=== PATIENT | male | born 1985 | race American Indian/Alaskan Native ===

== ENCOUNTER 2018-04-27 19:53 | Inpatient (IN) | payer OTHER ==
[2018-04-27] MEDS ORDERED: Sodium Chloride 0.9% 1,000 ML IV ONE (21:50)
[2018-04-27] MEDS ORDERED: Piperacillin/Tazobact 3.375 GM in Sodium Chloride 0.9% 100 ML IVPB STA (21:56)
--- NOTE | 2018-04-27 22:05 | ED PDOC ---
HPI: General Adult Time Seen by Provider: 04/27/18 21:39 Chief Complaint (Nursing): Male Genitourinary Chief Complaint (Provider): Scrotal Pain/Abscess History Per: Patient History/Exam Limitations: no limitations Onset/Duration Of Symptoms: Days (x4-5) Current Symptoms Are (Timing): Still Present Additional Complaint(s): Mikael Merritt is a 32 year old male with no past medical history who is presenting to the ED for evaluation of a scrotal abscess worsening for 4-5 days. Patient states that he has a history of similar symptoms which have required surgical debridement in the past, but this was previously managed in [place]. Patient denies taking any medications prior to arrival. He states that it has started draining today and noted a fever of 102 at home. He denies any abdominal pain, nausea, vomiting, dysuria, or hematuria. PMD: SREE Past Medical History Reviewed: Historical Data, Nursing Documentation, Vital Signs Vital Signs: Last Vital Signs Temp 98.9 F 04/27/18 20:50 Pulse 109 H 04/27/18 20:50 Resp 18 04/27/18 20:50 BP 121/86 04/27/18 20:50 Pulse Ox 96 04/27/18 20:50 - Medical History PMH: No Chronic Diseases - Surgical History Other surgeries: orthopedic; debridement of recurrent abscesses - Family History Family History: States: Unknown Family Hx - Social History Current smoker - smoking cessation education provided: No Alcohol: None Drugs: Denies - Home Medications Home Medications: Ambulatory Orders Medication Instructions Recorded Amoxicillin/Clavulanate [Augmentin 1 tab PO BID 10 Days #20 tab 04/29/18 875 MG-125 MG] Chlorhexidine Gluconate 4% 5 ml TOP BID #1 bottle 04/29/18 [Hibiclens 4%] RX: Ibuprofen [Motrin Tab] 600 mg PO QID #30 tab 04/29/18 Tramadol HCl [Ultram] 25 mg PO Q4 PRN #10 tablet 04/29/18 - Allergies Allergies/Adverse Reactions: Allergies Allergy/AdvReac Type Severity Reaction Status Date / Time shellfish derived Allergy ITCHING Verified 04/27/18 21:48 Review of Systems ROS Statement: Except As Marked, All Systems Reviewed And Found Negative Constitutional: Positive for: Fever Gastrointestinal: Negative for: Nausea, Vomiting, Abdominal Pain Genitourinary Male: Positive for: Other (scrotal abscess). Negative for: Dysuria Physical Exam - Reviewed Nursing Documentation Reviewed: Yes Vital Signs Reviewed: Yes - Physical Exam Comments: GENERAL APPEARANCE: Patient is awake, alert, oriented x 3, in no acute distress. SKIN: Warm, dry; (-) cyanosis ENMT: Mucous membranes moist. Airway patent: (-) stridor. NECK: Supple, FROM HEART AND CARDIOVASCULAR: (-) irregularity CHEST AND RESPIRATORY: (-) rales, (-) rhonchi, (-) wheezes; breath sounds equal. Respirations even and nonlabored. ABDOMEN: Soft, (-) distention, (-) tenderness, (-) guarding. GENITOURINARY: Iesha DALY chaperoned: multiple areas of induration and edema to inferior scrotum, inferior aspects of gluteus cheeks (+) diffuse tenderness to perineum and scrotum, bilateral scrotal tenderness with active pus drainage from inner buttock/right scrotum with foul smelling odor NEURO AND PSYCH: Mental status as above. Gait: steady. Speech: clear. (-) facial asymmetry - Laboratory Results Result Diagrams: 04/29/18 05:40 04/27/18 23:13 - ECG O2 Sat by Pulse Oximetry: 96 (RA) Pulse Ox Interpretation: Normal Medical Decision Making Medical Decision Making: Time: 21:51 Impression: recurrent perineal/scrotal abscess Plan: --VBG --CT Pelvis --CMP --CBC --Coags --IV Fluids --Toradol 30 mg IVP --Tylenol 650 mg PO --Vancomyacin 25 ml IVPB --Zosyn 100 ml IVPB --Blood Culture --Wound Culture --Urinalysis --Ultrasound Testes 2325 Patient returned from U/S without incident. Repeat HR: 75 Coag profile: unremarkable 2350 U/S reviewed, [facility]ad report follows EXAM: US Scrotum. CLINICAL HISTORY: Rt scrotal abscess TECHNIQUE: Real-time ultrasound of the scrotum with color Doppler and image documentation. COMPARISON: None provided. FINDINGS: RIGHT TESTICLE: The right testicle demonstrates normal Doppler waveforms. Right testicle measures 4.6 x 1.8 x 3.1 cm. LEFT TESTICLE: Left testicle measures 4.5 x 2.1 x 1.6 cm. Left testicle demonstrates normal Doppler waveforms. EPIDIDYMIDES: Right epididymal head measures 1.1 cm in greatest dimension. There is a right epididymal head cyst measuring 0.6 cm. Left epididymal head measures 0.8 cm in greatest dimension. SCROTUM: At the right lateral scrotum, at the area of palpable concern, there is a hypoechoic region with peripheral and some slight central hypervascularity. This measures 3.8 x 0.8 x 1.5 cm This is compatible with abscess or phlegmon. Less likely possibility includes hypervascular mass. MISCELLANEOUS: There is normal vascularity of both testes. Both testes demonstrate homogeneous echogenicity. IMPRESSION: 1. At the right lateral scrotum, at the area of palpable concern, there is a hypoechoic region with peripheral and some slight central hypervascularity. This measures 3.8 x 0.8 x 1.5 cm This is compatible with abscess or phlegmon. Less likely possibility includes hypervascular mass. Electronically signed on Apr 27, 2018 11:31:26 PM EST by: Amos Leo M.D., MBA Certified By [facility] [employer] [facility] Trained MRI and CT Specialist Labs reviewed. CBC with no leukocytosis. CMP grossly unremarkable. 0000 Case endorsed to Yung Amador PA-C pending CT evaluation and further disposition. Scribe Attestation: Documented by, Paty Mason acting as a scribe for Kimmy Coello PA-C. Provider Scribe Attestation: All medical record entries made by the Scribe were at my direction and personally dictated by me. I have reviewed the chart and agree that the record accurately reflects my personal performance of the history, physical exam, medical decision making, and the department course for this patient. I have also personally directed, reviewed, and agree with the discharge instructions and disposition. Disposition - Clinical Impression Clinical Impression: Scrotal abscess - Patient ED Disposition Is Patient to be Admitted: Transfer of Care (Case endorsed to Yung Amador PA-C pending CT evaluation and further disposition.) - Disposition Disposition: Transfer of Care (Case endorsed to Yung Amador PA-C pending CT evaluation and further disposition.) Disposition Time: 00:00 Condition: FAIR - POA Present On Arrival: None Results - Vital Signs Recent Vital Signs: Last Vital Signs Temp 99.1 F 04/27/18 23:29 Pulse 75 04/27/18 23:29 Resp 18 04/27/18 20:50 BP 111/53 L 04/27/18 23:29 Pulse Ox 98 04/27/18 23:29 - Labs Result Diagrams: 04/29/18 05:40 04/27/18 23:13 Labs: Laboratory Results - last 24 hr 04/27/18 04/27/18 04/27/18 23:13 23:13 23:13 WBC 10.4 RBC 4.56 Hgb 12.8 Hct 37.9 MCV 83.2 MCH 28.1 MCHC 33.8 RDW 15.4 H Plt Count 298 MPV 9.2 Neut % (Auto) 67.4 Lymph % (Auto) 21.7 [place] % (Auto) 6.9 Eos % (Auto) 3.2 Baso % (Auto) 0.8 Neut # (Auto) 7.0 Lymph # (Auto) 2.3 [place] # (Auto) 0.7 Eos # (Auto) 0.3 Baso # (Auto) 0.1 PT 12.4 INR 1.1 APTT 34.3 pO2 VBG pH VBG pCO2 VBG HCO3 VBG Total CO2 VBG O2 Sat (Calc) VBG Base Excess VBG Potassium Glucose Lactate FiO2 Sodium 139 Potassium 4.3 Chloride 102 Carbon Dioxide 23 Anion Gap 18 BUN 14 Creatinine 1.0 Est GFR ( Amer) > 60 Est GFR (Non-Af Amer) > 60 Random Glucose 109 Calcium 9.6 Total Bilirubin 0.2 AST 32 ALT 44 Alkaline Phosphatase 74 Total Protein 8.5 H Albumin 4.2 Globulin 4.3 H Albumin/Globulin Ratio 1.0 Venous Blood Potassium 04/27/18 23:32 WBC RBC Hgb Hct MCV MCH MCHC RDW Plt Count MPV Neut % (Auto) Lymph % (Auto) [place] % (Auto) Eos % (Auto) Baso % (Auto) Neut # (Auto) Lymph # (Auto) [place] # (Auto) Eos # (Auto) Baso # (Auto) PT INR APTT pO2 48 VBG pH 7.45 H VBG pCO2 39 L VBG HCO3 26.9 VBG Total CO2 28.3 H VBG O2 Sat (Calc) 89.1 H VBG Base Excess 3.0 H VBG Potassium 4.3 Glucose 100 Lactate 1.0 FiO2 21.0 Sodium 138.0 Potassium Chloride 108.0 H Carbon Dioxide Anion Gap BUN Creatinine Est GFR ( Amer) Est GFR (Non-Af Amer) Random Glucose Calcium Total Bilirubin AST ALT Alkaline Phosphatase Total Protein Albumin Globulin Albumin/Globulin Ratio Venous Blood Potassium 4.3
[2018-04-27] MEDS ORDERED: Vancomycin 1 g Inj ONE (22:55)
[2018-04-27] MEDS ORDERED: Piperacillin/Tazobact 3.375 gm Inj IVPB ONE (22:55)
[2018-04-27 23:20] LABS: BASO # 0.1 K/uL (0.0-0.2); BASO % 0.8 % (0.0-2.0); EOS # 0.3 K/uL (0.0-0.7); EOS % 3.2 % (0.0-4.0); HEMOGLOBIN 12.8 g/dL (12.0-18.0); LYMPH # 2.3 K/uL (1.0-4.3); LYMPH % 21.7 % (20.0-40.0); MEAN CELL VOLUME 83.2 fl (80.0-94.0); MEAN CORPUSCULAR HEMOGLOBIN 28.1 pg (27.0-31.0); MEAN CORPUSCULAR HGB CONC 33.8 g/dL (33.0-37.0); MEAN PLATELET VOLUME 9.2 fl (7.2-11.7); MONO # 0.7 K/uL (0.0-0.8); MONO % 6.9 % (0.0-10.0); NEUT % 67.4 % (50.0-75.0); RBC 4.56 Mil/uL (4.40-5.90); RED CELL DISTRIBUTION WIDTH 15.4 % (11.5-14.5); WHITE BLOOD COUNT 10.4 K/uL (4.8-10.8)
[2018-04-27 23:21] LABS: INR 1.1; PROTHROMBIN TIME 12.4 Seconds (9.8-13.1)
[2018-04-27 23:24] LABS: PARTIAL THROMBOPLASTIN TIME 34.3 Seconds (25.6-37.1)
[2018-04-27 23:29] LABS: ALBUMIN 4.2 g/dL (3.5-5.0); ALT/SGPT 44 U/L (21-72); AST/SGOT 32 U/L (17-59); BLOOD UREA NITROGEN 14 mg/dl (9-20); CALCIUM 9.6 mg/dL (8.4-10.2); GFR NON-AFRICAN AMERICAN > 60
[2018-04-27 23:37] LABS: VENOUS BLOOD GAS PCO2 39 mmHg (40-60); VENOUS BLOOD GAS PO2 48 mm/Hg (30-55); VENOUS BLOOD PH 7.45 (7.32-7.43)
[2018-04-27] MEDS ORDERED: Iohexol 300 100 ML IJ ONE (23:56)
[2018-04-27] MEDS ORDERED: Sodium Chloride 0.9% 50 ML IV ONE (23:57)
--- NOTE | 2018-04-28 00:24 | ED PDOC ---
- Laboratory Results Result Diagrams: 04/27/18 23:13 04/27/18 23:13 Lab Results: pO2 48 mm/Hg (30-55) 04/27/18 23:32 VBG pH 7.45 (7.32-7.43) H 04/27/18 23:32 VBG pCO2 39 mmHg (40-60) L 04/27/18 23:32 VBG HCO3 26.9 mmol/L 04/27/18 23:32 VBG Total CO2 28.3 mmol/L (22-28) H 04/27/18 23:32 VBG O2 Sat (Calc) 89.1 % (40-65) H 04/27/18 23:32 VBG Base Excess 3.0 mmol/L (0.0-2.0) H 04/27/18 23:32 VBG Potassium 4.3 mmol/L (3.6-5.2) 04/27/18 23:32 Sodium 138.0 mmol/L (132-148) 04/27/18 23:32 Chloride 108.0 mmol/L (98-107) H 04/27/18 23:32 Glucose 100 mg/dL (75-110) 04/27/18 23:32 Lactate 1.0 mmol/L (0.7-2.1) 04/27/18 23:32 FiO2 21.0 % 04/27/18 23:32 PT 12.4 Seconds (9.8-13.1) 04/27/18 23:13 INR 1.1 04/27/18 23:13 APTT 34.3 Seconds (25.6-37.1) 04/27/18 23:13 Total Bilirubin 0.2 mg/dl (0.2-1.3) 04/27/18 23:13 AST 32 U/L (17-59) 04/27/18 23:13 ALT 44 U/L (21-72) 04/27/18 23:13 Alkaline Phosphatase 74 U/L (38-126) 04/27/18 23:13 Total Protein 8.5 G/DL (6.3-8.2) H 04/27/18 23:13 Albumin 4.2 g/dL (3.5-5.0) 04/27/18 23:13 Globulin 4.3 gm/dL (2.2-3.9) H 04/27/18 23:13 Albumin/Globulin Ratio 1.0 (1.0-2.1) 04/27/18 23:13 - ECG O2 Sat by Pulse Oximetry: 96 (RA) - Progress ED Course And Treament: Case endorsed to repairer typewriter from [employer] pending CT EXAM: CT Pelvis and Hip, laterality, with IV contrast. CLINICAL HISTORY: Scrotal /perianal abscess TECHNIQUE: Axial computed tomography images of the pelvis and laterality hip with intravenous contrast. 508.75 mGy-cm IV CONTRAST: With COMPARISON: SD\US\NV - TESTES DUPLEX COMPLETE - 04/27/2018 10:19 PM EST FINDINGS: HIP JOINTS: Focused images acquired of the laterality hip. No dislocation. The joint spaces are normal. BONES: No acute fracture or aggressive appearing osseous lesion. No suspicious focal osseous lesions. SOFT TISSUES: The pelvic viscera are unremarkable. No fluid collection, hematoma or mass. No radiopaque foreign body or soft tissue gas. MISCELLANEOUS: Superficial localized fluid collection in the region of clinical concern measuring approximately 3 x 2 cm, compatible with an abscess. IMPRESSION: Superficial localized fluid collection in the region of clinical concern measuring approximately 3 x 2 cm, compatible with an abscess Case discussed with Dr. Agrawal, Urology on-call; recommends sitz baths of NS/peroxide and admit under hospitalist Case discussed with Dr. Qiu, Hospitalist on-call, for admission Disposition - Clinical Impression Clinical Impression: Scrotal abscess - POA Present On Arrival: None - Disposition Disposition: Admitted as In-Patient Disposition Time: 02:00 Condition: FAIR
[2018-04-28] MEDS ORDERED: Morphine 4 MG/ML VIAL IV ONE (01:00)
[2018-04-28 01:13] LABS: URINE BILIRUBIN NEGATIVE (NEGATIVE); URINE BLOOD NEGATIVE (NEGATIVE); URINE CLARITY CLEAR (Clear); URINE COLOR YELLOW (YELLOW); URINE GLUCOSE (UA) NEG (NEGATIVE); URINE LEUKOCYTE ESTERASE NEG Leu/uL (Negative); URINE PROTEIN NEGATIVE (NEGATIVE); URINE UROBILINOGEN 0.2-1.0 mg/dL (0.2-1.0)
[2018-04-28] MEDS ORDERED: Morphine 4 MG/ML VIAL IVP ONE ×2 (02:01→21:29)
[2018-04-28] MEDS ORDERED: Morphine 4 MG/ML VIAL ONE (02:11)
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
[2018-04-28] MEDS ORDERED: Lactated Ringer's 1,000 ML IV SCH (02:15)
[2018-04-28] MEDS: Morphine 4 MG/ML VIAL IVP PRN ×2 (04:20→08:45)
[2018-04-28] MEDS: Piperacillin/Tazobact 3.375 GM in Sodium Chloride 0.9% 100 ML IVPB SCH ×4 (04:25→22:06)
--- NOTE | 2018-04-28 10:23 | CT ---
Date of service: 04/27/2018 PROCEDURE: CT Pelvis with contrast HISTORY: scrotal/perianal abscess COMPARISON: None available. TECHNIQUE: Contiguous axial images of the pelvis with contrast. Coronal and sagittal reformats generated. Helical CT of the pelvis was performed from the iliac crest through the symphysis pubis following dynamic intravenous contrast administration. Reformatted dataset have been provided multiple projections. Contrast dose: Omnipaque 300, 90 cc Radiation dose: Total exam DLP = 508.75 mGy-cm. This CT exam was performed using one or more of the following dose reduction techniques: Automated exposure control, adjustment of the mA and/or kV according to patient size, and/or use of iterative reconstruction technique. FINDINGS: Reactive changes are identified in subcutaneous fat at the medial buttocks at both sides of the gluteal fold which may extend to the level of the perianal space, particularly at the left side. Medial left buttocks a buttocks is more affected than the left buttocks superficially but no definite fluid collection is appreciated to define a specific abscess at either side. Overall pattern reflects limited phlegmon. Reactive changes approach the inferior left gluteus musculature. BLADDER: Unremarkable. No mass. REPRODUCTIVE ORGANS: Unremarkable. VISUALIZED BOWEL: Moderate amount retained fecal material scattered at the distal rectosigmoid. PERITONEUM: Unremarkable, as visualized. No free fluid. No free air. LYMPH NODES: Unremarkable. No enlarged lymph nodes. VASCULATURE: No aortic atherosclerotic calcification or mural plaque present. BONES: No fracture or focal lesion. OTHER FINDINGS: There is a small umbilical hernia containing a short segment of bowel without incarceration. IMPRESSION: Bilateral medial buttocks reactive cellulitis changes are identified which are rather superficial and primarily immediately deep to the dermis with no definitive abscess at this time. Cellulitis pattern approaching the left perianal space based on axial images. No definitive abscess appreciated throughout. Distortion with preliminary report by [employer] rad generated 04/28/2018, 1:19 a.m.. No abscess appreciated at this time which is part of the preliminary report. Findings discussed with Nurse Bessy Dias as well as Dr. Agrawal, the admitting physician with written down and read back verification 04/28/2018 10:05 a.m..
[2018-04-28] MEDS ORDERED: Lidocaine 2% Inj (20ml) ONE (12:50)
[2018-04-28] MEDS ORDERED: Bupivacaine 0.5% Inj(30mL) ONE (12:50)
--- NOTE | 2018-04-28 13:12 | US ---
Date of service: 04/27/2018 HISTORY: scrotal abscess/swelling TECHNIQUE: Realtime sonography through the scrotum with color and doppler flow. COMPARISON: 2018. CT pelvis. FINDINGS: RIGHT TESTICLE: Measures 1.8 x 3.1 x 4.6 cm. Normal echotexture and flow. RIGHT EPIDIDYMIS: Epididymal head measures 1.0 x 1.1 cm. Grossly unremarkable appearance with normal flow. Simple cyst 6 x 7 mm. LEFT TESTICLE: Measures 2.1 x 3.1 x 4.5 cm. Normal echotexture and flow. LEFT EPIDIDYMIS: Epididymal head measures 0.6 x 0.8 cm. Grossly unremarkable appearance with normal flow. HYDROCELE: None. VARICOCELE: None. OTHER FINDINGS: Scrotal edema on the right side. Interposed between the right testicle and skin is a solid hypodense area measuring 0.8 x 1.5 x 3.8 cm. The area displays increased vascularity peripherally. This is likely infectious/inflammatory-phlegmonous process. IMPRESSION: Unilateral, right scrotal edema. Hypervascular solid mass/process subjacent to the skin, superficial to the right testicle compatible with inflammatory/infectious process without discrete cavity or fluid component. Although less likely neoplasm should be considered. Accordingly follow-up to resolution recommended. Concordant findings (preliminary report) provided by [employer].
[2018-04-28] MEDS ORDERED: Lactated Ringer's 1,000 ML IV ONE (15:15)
[2018-04-28] MEDS ORDERED: Midazolam 2 MG/2 ML VIAL ONE (15:17)
[2018-04-28] MEDS ORDERED: Propofol 10 mg/ml Inj (20 ML) ONE (15:17)
[2018-04-28] MEDS: HYDROmorphone 0.5 mg/0.5 ml ISec IVP PRN ×3 (16:09→16:55)
[2018-04-28] MEDS ORDERED: HYDROmorphone 0.5 mg/0.5 ml ISec ONE (16:10)
[2018-04-28] MEDS ORDERED: Dexamethasone 4 mg/1 ml IVP PRN (16:11)
[2018-04-28 17:32] VITALS: RESP 20
[2018-04-28 23:43] LABS: BARBITURATES, UR NEGATIVE (NEGATIVE); BENZODIAZEPINES, UR POSITIVE (NEGATIVE); OPIATES, UR POSITIVE (NEGATIVE); PHENCYCLIDINE, UR NEGATIVE (NEGATIVE)
[2018-04-29] MEDS: Piperacillin/Tazobact 3.375 GM in Sodium Chloride 0.9% 100 ML IVPB SCH ×2 (04:04→09:01)
[2018-04-29 06:38] LABS: BASO # 0.1 K/uL (0.0-0.2); BASO % 0.7 % (0.0-2.0); EOS # 0.3 K/uL (0.0-0.7); EOS % 3.3 % (0.0-4.0); LYMPH # 1.7 K/uL (1.0-4.3); LYMPH % 17.9 % (20.0-40.0); MEAN CELL VOLUME 83.7 fl (80.0-94.0); MEAN CORPUSCULAR HEMOGLOBIN 28.1 pg (27.0-31.0); MEAN CORPUSCULAR HGB CONC 33.6 g/dL (33.0-37.0); MEAN PLATELET VOLUME 9.6 fl (7.2-11.7); MONO # 0.8 K/uL (0.0-0.8); MONO % 8.6 % (0.0-10.0); NEUT # 6.7 K/uL (1.8-7.0); NEUT % 69.5 % (50.0-75.0); RBC 3.93 Mil/uL (4.40-5.90); RED CELL DISTRIBUTION WIDTH 15.4 % (11.5-14.5); WHITE BLOOD COUNT 9.7 K/uL (4.8-10.8)
[2018-04-29] MEDS ORDERED: Morphine 4 MG/ML VIAL IVP ONE (07:49)
[2018-04-29 08:32] VITALS: BP 119/76; PULSE 63; TEMP 98.1; O2SAT 96
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
--- NOTE | 2018-04-30 06:36 | OP ---
PROCEDURE DATE: 04/28/2018 SURGEON: Santana Agrawal MD ANESTHESIOLOGIST: Eren Ramirez MD ANESTHESIA: General LMA PROCEDURE: I&D Scrotal Abscess INDICATION: The patient was brought to the ER with apparent abscess of the scrotum approaching the perineum. DESCRIPTION OF PROCEDURE: The patient was brought down to the OR, prepped and draped in the usual manner after general anesthesia given. The area suspicious for the abscess was then opened with a cold knife. Approximately 5 to 10 mL of purulent pus was then removed. The area was irrigated using peroxide and water. After this was accomplished, an iodoform gauze then placed into the open area. The abscess was incised. Scrotal support was then placed over the scrotum with 4x4s. The patient . The patient left the OR in good condition and will be followed as necessary. Santana Agrawal MD MTDD
== END 2018-04-29 12:16 | disposition home or self-care (01) | DRG 350 ==
LOC: H.ER 19:53 → H.ERHOLD 04-28 02:00 → H.MEDSURG1 04-28 03:43
PROVIDERS: ADMIT Internal Medicine; ATTEND Internal Medicine
PROC: 0H9AXZZ Drainage of Inguinal Skin, External Approach (ICD-10-PCS; principal; 2018-04-28 13:00)
DX: N49.2 Inflammatory disorders of scrotum (principal); W22.8XXA Striking against or struck by other objects, initial encounter; Z91.013 Allergy to seafood; S69.92XA Unspecified injury of left wrist, hand and finger(s), initial encounter

== ENCOUNTER 2018-06-01 19:23 | Observation (INO) | payer OTHER ==
--- NOTE | 2018-06-01 21:18 | ED PDOC ---
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 Patient also reports pain and swelling to right testicle, which he believes started around the same time. Patient states he is trying to find a colorectal surgeon as recommended by his PMD but cannot find one that takes his insurance. Denies fever, nausea/vomiting, chest pain, abdominal pain, dysuria, hematuria, penile drainage. Past Medical History Reviewed: Historical Data, Nursing Documentation, Vital Signs Vital Signs: Last Vital Signs Temp 98.1 F 06/01/18 20:12 Pulse 107 H 06/01/18 20:12 Resp 18 06/01/18 20:12 BP 144/85 06/01/18 20:12 Pulse Ox 99 06/01/18 20:12 - Medical History PMH: No Chronic Diseases Denies: Chronic Kidney Disease - Family History Family History: States: Unknown Family Hx - Living Arrangements Living Arrangements: With Family - Social History Current smoker - smoking cessation education provided: No Ex-Smoker (has not smoked in the last 12 months): No Alcohol: Social Drugs: Denies - Home Medications Home Medications: Ambulatory Orders Medication Instructions Recorded Amoxicillin/Clavulanate [Augmentin 1 tab PO BID 10 Days #20 tab 04/29/18 875 MG-125 MG] Chlorhexidine Gluconate 4% 5 ml TOP BID #1 bottle 04/29/18 [Hibiclens 4%] Ibuprofen [Motrin Tab] 600 mg PO QID #30 tab 04/29/18 Tramadol HCl [Ultram] 25 mg PO Q4 PRN #10 tablet 04/29/18 - Allergies Allergies/Adverse Reactions: Allergies Allergy/AdvReac Type Severity Reaction Status Date / Time shellfish derived Allergy ITCHING Verified 04/27/18 21:48 Review of Systems ROS Statement: Except As Marked, All Systems Reviewed And Found Negative Genitourinary Male: Positive for: Scrotal Pain Physical Exam - Reviewed Nursing Documentation Reviewed: Yes Vital Signs Reviewed: Yes - Physical Exam Appears: Positive for: Well, Non-toxic, No Acute Distress Head Exam: Positive for: ATRAUMATIC, NORMAL INSPECTION, NORMOCEPHALIC Skin: Positive for: Normal Color Eye Exam: Positive for: Normal appearance ENT: Positive for: Normal ENT Inspection Cardiovascular/Chest: Positive for: Regular Rate, Rhythm Respiratory: Positive for: Normal Breath Sounds Male Genital Exam: Positive for: inguinal tenderness (bilateral perineum with old track ascencio. left perineal area with swelling. Firm/tender to touch extending to medial left gluteal area, warm to touch. No active drainage), scrotum tenderness (R) (right lateral tenderness, swelling) Back: Positive for: Normal Inspection Extremity: Positive for: Normal ROM Neurological/Psych: Positive for: Awake, Alert, Oriented - Laboratory Results Result Diagrams: 06/01/18 22:20 06/01/18 22:20 - ECG O2 Sat by Pulse Oximetry: 99 - Progress ED Course And Treament: -cbc -cmp -pt/ptt -blood culture -urinalysis -testes u/s -CT pelvis IV contrast -IV toradol History Rt side pain. History of abscess. Technique Realtime sonography through the scrotum with color and Doppler flow. Comparison 04/27/2018. Findings Right Testicle Measures 4.25 x 3.13 x 1.97 cm with volume of 13.75 ml. Normal echotexture and flow. Right Epididymis Epididymal head measures 0.98 x 1.17 x 0.73 cm. Epididymal cyst measures 0.66 x 0.71 x 0.74 cm. Left Testicle Measures 4.81 x 2.61 x 1.98 cm with volume of 13.03 ml. Normal echotexture and flow. Left Epididymis Epididymal head measures 0.76 x 0.73 x 0.57 cm. Grossly unremarkable appearance with normal flow. Hydrocele None. Varicocele None. Other Findings Hypoechoic hypovascular collection is seen lateral to the right testicle containing debris measuring 3.99 x 1.69 x 0.65 cm (previously measured 3.8 x 0.8 x 1.5 cm) with volume of 2.28 ml consistent with an abscess. Impression 1. Right epididymal cyst. 2. Collection is seen lateral to the right testicle containing debris as above consistent with an abscess EXAM: CT Pelvis and Hip, laterality, with IV contrast. CLINICAL HISTORY: Natalia-rectal pain TECHNIQUE: Axial computed tomography images of the pelvis and laterality hip with intravenous contrast. 529.89 mGy-cm IV CONTRAST: With COMPARISON: Images from prior CT pelvis examination dated 04/28/2018 are unavailable for comparison; however, the report was reviewed. FINDINGS: HIP JOINTS: Focused images acquired of the laterality hip. No dislocation. The joint spaces are normal. BONES: No acute fracture or aggressive appearing osseous lesion. No suspicious focal osseous lesions. SOFT TISSUES: The pelvic viscera are unremarkable. No fluid collection, hematoma or mass. No radiopaque foreign body or soft tissue gas. In the subcutaneous soft tissues of the posterior lower left buttocks; at approximately the level of the coccygeal tip, there is identified a 1.8 x 4.6 cm hypodense collection with surrounding inflammatory stranding extending to the cutaneous surface compatible with abscess/cellulitis. The inflammatory stranding and cutaneous thickening extends medially into the left gluteal fold, perianal and perirectal regions. No subcutaneous emphysema is identified. LYMPH NODES: Bilateral inguinal lymphadenopathy is identified; more pronounced on the left. IMPRESSION: 1. Continued posterior left buttocks subcutaneous abscess/cellulitis with spread of inflammatory stranding and cutaneous thickening into the medial left gluteal fold, perianal and perirectal regions. 2. Bilateral inguinal lymphadenopathy; more pronounced on the left. IV zosyn, IV vanco ordered Case discussed with Dr. Savage, Urology on-call; recommends NPO and will evaluate in am Case discussed with Dr. Espitia, medical service on-call, for admission Disposition - Clinical Impression Clinical Impression: Scrotal abscess, Cellulitis - Patient ED Disposition Is Patient to be Admitted: Yes - Disposition Disposition Time: 00:19 Condition: FAIR Forms: [employer] (German)
[2018-06-01] MEDS ORDERED: Sodium Chloride 0.9% 50 ML IV ONE (22:19)
[2018-06-01] MEDS ORDERED: Iohexol 300 100 ML IJ ONE (22:19)
[2018-06-01 22:47] LABS: URINE BILIRUBIN NEGATIVE (NEGATIVE); URINE BLOOD NEGATIVE (NEGATIVE); URINE CLARITY SLIGHTY-CLOUDY (Clear); URINE COLOR YELLOW (YELLOW); URINE GLUCOSE (UA) NEG (NEGATIVE); URINE LEUKOCYTE ESTERASE NEG Leu/uL (Negative); URINE PROTEIN NEGATIVE (NEGATIVE)
[2018-06-01 22:48] LABS: BASO # 0.1 K/uL (0.0-0.2); BASO % 0.6 % (0.0-2.0); EOS # 0.2 K/uL (0.0-0.7); EOS % 1.7 % (0.0-4.0); LYMPH # 2.7 K/uL (1.0-4.3); LYMPH % 19.3 % (20.0-40.0); MEAN CELL VOLUME 81.8 fl (80.0-94.0); MEAN CORPUSCULAR HEMOGLOBIN 27.4 pg (27.0-31.0); MEAN CORPUSCULAR HGB CONC 33.5 g/dL (33.0-37.0); MONO # 1.1 K/uL (0.0-0.8); MONO % 7.6 % (0.0-10.0); NEUT # 9.8 K/uL (1.8-7.0); NEUT % 70.8 % (50.0-75.0); NRBC % 0.1 % (0.0-0.0); RBC 4.37 Mil/uL (4.40-5.90); RED CELL DISTRIBUTION WIDTH 15.7 % (11.5-14.5); WHITE BLOOD COUNT 13.8 K/uL (4.8-10.8)
[2018-06-01 22:57] LABS: ALB/GLOB RATIO 0.9 (1.0-2.1); ALBUMIN 4.2 g/dL (3.5-5.0); BLOOD UREA NITROGEN 13 mg/dl (9-20); CALCIUM 9.2 mg/dL (8.4-10.2); GFR NON-AFRICAN AMERICAN > 60
[2018-06-01 23:03] LABS: BARBITURATES, UR NEGATIVE (NEGATIVE); BENZODIAZEPINES, UR NEGATIVE (NEGATIVE); OPIATES, UR POSITIVE (NEGATIVE); PHENCYCLIDINE, UR NEGATIVE (NEGATIVE)
[2018-06-01 23:04] LABS: ALT/SGPT 33 U/L (21-72); AST/SGOT 28 U/L (17-59)
[2018-06-01 23:34] LABS: PROTHROMBIN TIME 11.4 Seconds (9.8-13.1)
[2018-06-01 23:37] LABS: PARTIAL THROMBOPLASTIN TIME 36.9 Seconds (25.6-37.1)
[2018-06-02] MEDS ORDERED: Piperacillin/Tazobact 3.375 GM in Sodium Chloride 0.9% 100 ML IV ONE (00:02)
[2018-06-02] MEDS ORDERED: Piperacillin/Tazobact 3.375 gm Inj IVPB ONE (00:09)
[2018-06-02] MEDS ORDERED: Vancomycin 1 g Inj ONE (01:19)
[2018-06-02] MEDS: HYDROmorphone 0.5 mg/0.5 ml ISec IVP STA ×2 (03:05→18:16)
[2018-06-02] MEDS: Sodium Chloride 0.9% 1,000 ML IV SCH (05:57)
[2018-06-02] MEDS: Piperacillin/Tazobact 3.375 GM in Sodium Chloride 0.9% 100 ML IVPB SCH ×3 (05:58→18:00)
[2018-06-02 06:48] LABS: HEMOGLOBIN 11.2 g/dL (12.0-18.0); MEAN CELL VOLUME 81.4 fl (80.0-94.0); MEAN CORPUSCULAR HEMOGLOBIN 27.1 pg (27.0-31.0); MEAN CORPUSCULAR HGB CONC 33.3 g/dL (33.0-37.0); RBC 4.13 Mil/uL (4.40-5.90); RED CELL DISTRIBUTION WIDTH 15.5 % (11.5-14.5); WHITE BLOOD COUNT 10.6 K/uL (4.8-10.8)
[2018-06-02 07:00] LABS: ALBUMIN 3.7 g/dL (3.5-5.0); ALT/SGPT 24 U/L (21-72); AST/SGOT 17 U/L (17-59); BLOOD UREA NITROGEN 13 mg/dl (9-20); CALCIUM 9.1 mg/dL (8.4-10.2); GFR NON-AFRICAN AMERICAN > 60; HDL CHOLESTEROL 27 MG/DL (30-70)
[2018-06-02 07:05] LABS: LDL CHOLESTEROL 89 mg/dL (0-129)
[2018-06-02] MEDS: Morphine 4 MG/ML VIAL IVP PRN ×2 (08:17→11:36)
--- NOTE | 2018-06-02 08:59 | CP.PCM.HP ---
History of Present Illness - History of Present Illness History of Present Illness: Pt is a 32 y/o male with hx of recurrent scrotal abscess and recently admitted 1 month ago for a scrotal abscess (s/p I&D by Urology) presents to hospital for persistent R. Groin/Scrotal pain and swelling. States he was attempting to finding a colorectal surgeon but could not find one. Denies fever/chills or drainage. PMD: none Present on Admission - Present on Admission Any Indicators Present on Admission: No History of DVT/PE: No History of Uncontrolled Diabetes: No Urinary Catheter: No Decubitus Ulcer Present: No Past Patient History - Past Medical History & Family History Past Medical History?: No - Past Social History Smoking Status: Never Smoked - CARDIAC Hx Cardiac Disorders: No - PULMONARY Hx Respiratory Disorders: No - NEUROLOGICAL Hx Neurological Disorder: No - HEENT Hx HEENT Problems: No - RENAL Hx Chronic Kidney Disease: No - ENDOCRINE/METABOLIC Hx Endocrine Disorders: No - HEMATOLOGICAL/ONCOLOGICAL Hx Blood Disorders: No - INTEGUMENTARY Hx Dermatological Problems: Yes Other/Comment: scrotol abscess one year ago; treatment included debridement of abscess - MUSCULOSKELETAL/RHEUMATOLOGICAL Hx Musculoskeletal Disorders: No Hx Falls: No - GASTROINTESTINAL Hx Gastrointestinal Disorders: No - GENITOURINARY/GYNECOLOGICAL Hx Genitourinary Disorders: No - PSYCHIATRIC Hx Psychophysiologic Disorder: No Hx Substance Use: No - SURGICAL HISTORY Hx Surgeries: Yes Other/Comment: Mutiple Scrotal debridements;. Left hand surgery with splint;. Right ankle and Right arm metal plates after previous trauma - ANESTHESIA Hx Anesthesia: Yes Hx Anesthesia Reactions: No Hx Malignant Hyperthermia: No Meds Allergies/Adverse Reactions: Allergies Allergy/AdvReac Type Severity Reaction Status Date / Time shellfish derived Allergy ITCHING Verified 04/27/18 21:48 Physical Exam - Constitutional Appears: No Acute Distress - Head Exam Head Exam: NORMAL INSPECTION - Eye Exam Eye Exam: Normal appearance - ENT Exam ENT Exam: Mucous Membranes Moist - Respiratory Exam Respiratory Exam: Clear to Auscultation Bilateral - Cardiovascular Exam Cardiovascular Exam: REGULAR RHYTHM - GI/Abdominal Exam GI & Abdominal Exam: Normal Bowel Sounds, Soft. absent: Tenderness - Exam Exam: Scrotal Swelling (R. Tender and red w/ tender iguinal LAD bilaterally) - Extremities Exam Extremities exam: Positive for: normal inspection - Neurological Exam Neurological exam: Alert, Oriented x3 Results - Vital Signs Recent Vital Signs: Last Vital Signs Temp 97.8 F 06/02/18 07:51 Pulse 78 06/02/18 07:51 Resp 20 06/02/18 07:51 BP 103/60 06/02/18 07:51 Pulse Ox 99 06/02/18 07:51 - Labs Result Diagrams: 06/02/18 06:00 06/02/18 06:00 Labs: Laboratory Results - last 24 hr 06/01/18 06/01/18 06/01/18 22:00 22:20 22:20 WBC 13.8 H RBC 4.37 L Hgb 12.0 Hct 35.7 MCV 81.8 MCH 27.4 MCHC 33.5 RDW 15.7 H Plt Count 335 MPV 9.0 Neut % (Auto) 70.8 Lymph % (Auto) 19.3 L [place] % (Auto) 7.6 Eos % (Auto) 1.7 Baso % (Auto) 0.6 Neut # (Auto) 9.8 H Lymph # (Auto) 2.7 [place] # (Auto) 1.1 H Eos # (Auto) 0.2 Baso # (Auto) 0.1 PT 11.4 INR 1.0 APTT 36.9 Sodium 139 Potassium 4.7 Chloride 101 Carbon Dioxide 23 Anion Gap 20 BUN 13 Creatinine 0.8 Est GFR ( Amer) > 60 Est GFR (Non-Af Amer) > 60 Random Glucose 108 Calcium 9.2 Total Bilirubin 0.6 AST 28 ALT 33 Alkaline Phosphatase 75 Total Protein 8.6 H Albumin 4.2 Globulin 4.5 H Albumin/Globulin Ratio 0.9 L Triglycerides Cholesterol LDL Cholesterol Direct HDL Cholesterol Vitamin B12 Urine Color Urine Clarity Urine pH Ur Specific [place] Urine Protein Urine Glucose (UA) Urine Ketones Urine Blood Urine Nitrate Urine Bilirubin Urine Urobilinogen Ur Leukocyte Esterase Urine RBC (Auto) Urine Microscopic WBC Urine Opiates Screen Urine Methadone Screen Ur Barbiturates Screen Ur Phencyclidine Scrn Ur Amphetamines Screen U Benzodiazepines Scrn U Oth Cocaine Metabols U Cannabinoids Screen 06/01/18 06/01/18 06/02/18 22:20 22:20 06:00 WBC 10.6 RBC 4.13 L Hgb 11.2 L Hct 33.6 L MCV 81.4 MCH 27.1 MCHC 33.3 RDW 15.5 H Plt Count 320 MPV Neut % (Auto) Lymph % (Auto) [place] % (Auto) Eos % (Auto) Baso % (Auto) Neut # (Auto) Lymph # (Auto) [place] # (Auto) Eos # (Auto) Baso # (Auto) PT INR APTT Sodium Potassium Chloride Carbon Dioxide Anion Gap BUN Creatinine Est GFR ( Amer) Est GFR (Non-Af Amer) Random Glucose Calcium Total Bilirubin AST ALT Alkaline Phosphatase Total Protein Albumin Globulin Albumin/Globulin Ratio Triglycerides Cholesterol LDL Cholesterol Direct HDL Cholesterol Vitamin B12 Urine Color Yellow Urine Clarity Slighty-cloudy Urine pH 7.0 Ur Specific [place] 1.016 Urine Protein Negative Urine Glucose (UA) Neg Urine Ketones Negative Urine Blood Negative Urine Nitrate Negative Urine Bilirubin Negative Urine Urobilinogen 1.0 Ur Leukocyte Esterase Neg Urine RBC (Auto) 1 Urine Microscopic WBC < 1 Urine Opiates Screen Positive H Urine Methadone Screen Negative Ur Barbiturates Screen Negative Ur Phencyclidine Scrn Negative Ur Amphetamines Screen Negative U Benzodiazepines Scrn Negative U Oth Cocaine Metabols Negative U Cannabinoids Screen Negative 06/02/18 06:00 WBC RBC Hgb Hct MCV MCH MCHC RDW Plt Count MPV Neut % (Auto) Lymph % (Auto) [place] % (Auto) Eos % (Auto) Baso % (Auto) Neut # (Auto) Lymph # (Auto) [place] # (Auto) Eos # (Auto) Baso # (Auto) PT INR APTT Sodium 140 Potassium 4.1 Chloride 104 Carbon Dioxide 23 Anion Gap 17 BUN 13 Creatinine 1.0 Est GFR ( Amer) > 60 Est GFR (Non-Af Amer) > 60 Random Glucose 126 H Calcium 9.1 Total Bilirubin 0.3 AST 17 D ALT 24 Alkaline Phosphatase 79 Total Protein 7.4 Albumin 3.7 Globulin 3.7 Albumin/Globulin Ratio 1.0 Triglycerides 186 H Cholesterol 153 LDL Cholesterol Direct 89 HDL Cholesterol 27 L Vitamin B12 291 Urine Color Urine Clarity Urine pH Ur Specific [place] Urine Protein Urine Glucose (UA) Urine Ketones Urine Blood Urine Nitrate Urine Bilirubin Urine Urobilinogen Ur Leukocyte Esterase Urine RBC (Auto) Urine Microscopic WBC Urine Opiates Screen Urine Methadone Screen Ur Barbiturates Screen Ur Phencyclidine Scrn Ur Amphetamines Screen U Benzodiazepines Scrn U Oth Cocaine Metabols U Cannabinoids Screen Assessment & Plan - Assessment and Plan (Free Text) Assessment: Pt is a 32 y/o male with hx of recurrent scrotal abscess and recently admitted 1 month ago for a scrotal abscess (s/p I&D by Urology) presents to hospital for persistent R. Groin/Scrotal pain and swelling. LE CT: Cellulitis scattered from central to medial buttock ~4.2cm at greatest dimension- suspicious for phlegmon or possible small abscess. BL LAD. Testicular US: Hypoechoic hypovascular collection seen lateral to right testicle containing debri ~3.99cm with volume 2.28ml abscess. #Scrotal Abscess - Urology, ID, and General Surgery consulted - Plan for I&D today by Urology in the evening - C/W Vanco Zosyn - F/u Bcx Discussed case with Dr. Nupur Chao, PGY2
[2018-06-02] MEDS ORDERED: Piperacillin/Tazobact 3.375 GM in Sodium Chloride 0.9% 100 ML IVPB SCH (10:00)
--- NOTE | 2018-06-02 11:44 | CT ---
Date of service: 06/01/2018 PROCEDURE: CT Pelvis with contrast HISTORY: shellie-rectal pain COMPARISON: Abdomen pelvis CT without contrast 04/27/2018. TECHNIQUE: Contiguous axial images of the pelvis with contrast. Coronal and sagittal reformats generated. Contrast dose: Omnipaque 300, 90 cc Radiation dose: Total exam DLP = 529.89 mGy-cm. This CT exam was performed using one or more of the following dose reduction techniques: Automated exposure control, adjustment of the mA and/or kV according to patient size, and/or use of iterative reconstruction technique. FINDINGS: There is a heterogeneous area at the left buttocks primarily medial in distribution with worsened or recurrent cellulitis affecting mid and medial portion of the subcutaneous fat at the posterior left buttocks extending toward the gluteal fold and approaching but not clearly involving the perianal soft tissue. Multiple bandlike areas of increased density identified within the subcutaneous fat seen in the coronal view within the area of cellulitis measuring 4.0 x 11.9 cm. Largest solitary area of involvement is at the central to medial left buttocks subcutaneous fat measuring 1.7 x 4.2 cm with some lucency in the central or suspicious for developing abscess though phlegmon is here. Overt peripheral enhancement is not apparent and phlegmon is favored. Ultrasonography may be helpful overlying this area to define fluid collection versus phlegmon. BLADDER: Unremarkable. No mass. REPRODUCTIVE ORGANS: Unremarkable. VISUALIZED BOWEL: Unremarkable. PERITONEUM: Unremarkable, as visualized. No free fluid. No free air. LYMPH NODES: Bilateral inguinal lymphadenopathy identified including a 3.0 x 1.8 cm right inguinal lymph node with dominant left inguinal lymph node measuring 1.6 x 3.4 cm. VASCULATURE: No aortic atherosclerotic calcification or mural plaque present. BONES: No fracture or focal lesion. OTHER FINDINGS: None. IMPRESSION: Compatible with cellulitis and areas of phlegmon scattered within a relatively broad distribution at the medial left buttocks subcutaneous fat which encroaches the perianal region without a definite perianal abscess identified. Instead, there is an area measuring 4.2 cm greatest dimension at the central to medial left buttocks subcutaneous fat suspicious for phlegmon or possible small abscess. Follow-up ultrasonography may be useful in discriminate between these 2 processes. Emphysematous changes whatsoever within pelvic peripheral soft tissues. Overall, this pattern is worsened than previously shown though it may be recurrent. Bilateral inguinal lymphadenopathy as discussed above. Preliminary report provided by Ida, 06/01/2018, 11:49 p.m..
--- NOTE | 2018-06-02 13:18 | CP.PCM.CON ---
History of Present Illness - History of Present Illness History of Present Illness: 32 yo man w/ recurrent scrotal abscess, awaiting surgery, is referred for pain management. This is a chronic condition for the patient and he's awaiting definitive treatment as an outpatient. This will be the second surgery for him in the last year. His PMD has been prescribing him Percocet 10/325mg, one tablet daily, while he's dealing with this. Since admission, he states that Morphine is helping only for 1-2 hours, but Dila udid helped for longer. Past Patient History - Past Medical History & Family History Past Medical History?: No - Past Social History Smoking Status: Never Smoked - CARDIAC Hx Cardiac Disorders: No - PULMONARY Hx Respiratory Disorders: No - NEUROLOGICAL Hx Neurological Disorder: No - HEENT Hx HEENT Problems: No - RENAL Hx Chronic Kidney Disease: No - ENDOCRINE/METABOLIC Hx Endocrine Disorders: No - HEMATOLOGICAL/ONCOLOGICAL Hx Blood Disorders: No - INTEGUMENTARY Hx Dermatological Problems: Yes Other/Comment: scrotol abscess one year ago; treatment included debridement of abscess - MUSCULOSKELETAL/RHEUMATOLOGICAL Hx Musculoskeletal Disorders: No Hx Falls: No - GASTROINTESTINAL Hx Gastrointestinal Disorders: No - GENITOURINARY/GYNECOLOGICAL Hx Genitourinary Disorders: No - PSYCHIATRIC Hx Psychophysiologic Disorder: No Hx Substance Use: No - SURGICAL HISTORY Hx Surgeries: Yes Other/Comment: Mutiple Scrotal debridements;. Left hand surgery with splint;. Right ankle and Right arm metal plates after previous trauma - ANESTHESIA Hx Anesthesia: Yes Hx Anesthesia Reactions: No Hx Malignant Hyperthermia: No Meds Allergies/Adverse Reactions: Allergies Allergy/AdvReac Type Severity Reaction Status Date / Time shellfish derived Allergy ITCHING Verified 04/27/18 21:48 - Medications Medications: Current Medications Acetaminophen (Tylenol 325mg Tab) 650 mg PO Q6 PRN PRN Reason: Pain, moderate (4-7) Sodium Chloride (Sodium Chloride 0.9%) 1,000 mls @ 100 mls/hr IV .Q10H PATTI Stop: 06/03/18 05:34 Last Admin: 06/02/18 05:57 Dose: 100 mls/hr Vancomycin HCl 1 gm/ Sodium (Chloride) 250 mls @ 166.667 mls/hr IVPB Q12 PATTI; Protocol Last Admin: 06/02/18 10:05 Dose: 166.667 mls/hr Piperacillin Sod/Tazobactam (Sod 3.375 gm/ Sodium Chloride) 100 mls @ 100 mls/hr IVPB Q6H PATTI; Protocol Last Admin: 06/02/18 13:08 Dose: 100 mls/hr Morphine Sulfate (Morphine) 2 mg IVP Q4 PRN PRN Reason: Pain, severe (8-10) Last Admin: 06/02/18 11:36 Dose: 2 mg Results - Vital Signs Recent Vital Signs: Last Vital Signs Temp 97.8 F 06/02/18 07:51 Pulse 78 06/02/18 07:51 Resp 20 06/02/18 07:51 BP 103/60 06/02/18 07:51 Pulse Ox 99 06/02/18 07:51 - Labs Result Diagrams: 06/02/18 06:00 06/02/18 06:00 Labs: Laboratory Results - last 24 hr 06/01/18 06/01/18 06/01/18 22:00 22:20 22:20 WBC 13.8 H RBC 4.37 L Hgb 12.0 Hct 35.7 MCV 81.8 MCH 27.4 MCHC 33.5 RDW 15.7 H Plt Count 335 MPV 9.0 Neut % (Auto) 70.8 Lymph % (Auto) 19.3 L [place] % (Auto) 7.6 Eos % (Auto) 1.7 Baso % (Auto) 0.6 Neut # (Auto) 9.8 H Lymph # (Auto) 2.7 [place] # (Auto) 1.1 H Eos # (Auto) 0.2 Baso # (Auto) 0.1 PT 11.4 INR 1.0 APTT 36.9 Sodium 139 Potassium 4.7 Chloride 101 Carbon Dioxide 23 Anion Gap 20 BUN 13 Creatinine 0.8 Est GFR ( Amer) > 60 Est GFR (Non-Af Amer) > 60 Random Glucose 108 Calcium 9.2 Total Bilirubin 0.6 AST 28 ALT 33 Alkaline Phosphatase 75 Total Protein 8.6 H Albumin 4.2 Globulin 4.5 H Albumin/Globulin Ratio 0.9 L Triglycerides Cholesterol LDL Cholesterol Direct HDL Cholesterol Vitamin B12 Urine Color Urine Clarity Urine pH Ur Specific [place] Urine Protein Urine Glucose (UA) Urine Ketones Urine Blood Urine Nitrate Urine Bilirubin Urine Urobilinogen Ur Leukocyte Esterase Urine RBC (Auto) Urine Microscopic WBC Urine Opiates Screen Urine Methadone Screen Ur Barbiturates Screen Ur Phencyclidine Scrn Ur Amphetamines Screen U Benzodiazepines Scrn U Oth Cocaine Metabols U Cannabinoids Screen HIV-1 Ab Rapid Screen 06/01/18 06/01/18 06/02/18 22:20 22:20 06:00 WBC 10.6 RBC 4.13 L Hgb 11.2 L Hct 33.6 L MCV 81.4 MCH 27.1 MCHC 33.3 RDW 15.5 H Plt Count 320 MPV Neut % (Auto) Lymph % (Auto) [place] % (Auto) Eos % (Auto) Baso % (Auto) Neut # (Auto) Lymph # (Auto) [place] # (Auto) Eos # (Auto) Baso # (Auto) PT INR APTT Sodium Potassium Chloride Carbon Dioxide Anion Gap BUN Creatinine Est GFR ( Amer) Est GFR (Non-Af Amer) Random Glucose Calcium Total Bilirubin AST ALT Alkaline Phosphatase Total Protein Albumin Globulin Albumin/Globulin Ratio Triglycerides Cholesterol LDL Cholesterol Direct HDL Cholesterol Vitamin B12 Urine Color Yellow Urine Clarity Slighty-cloudy Urine pH 7.0 Ur Specific [place] 1.016 Urine Protein Negative Urine Glucose (UA) Neg Urine Ketones Negative Urine Blood Negative Urine Nitrate Negative Urine Bilirubin Negative Urine Urobilinogen 1.0 Ur Leukocyte Esterase Neg Urine RBC (Auto) 1 Urine Microscopic WBC < 1 Urine Opiates Screen Positive H Urine Methadone Screen Negative Ur Barbiturates Screen Negative Ur Phencyclidine Scrn Negative Ur Amphetamines Screen Negative U Benzodiazepines Scrn Negative U Oth Cocaine Metabols Negative U Cannabinoids Screen Negative HIV-1 Ab Rapid Screen 06/02/18 06/02/18 06:00 10:50 WBC RBC Hgb Hct MCV MCH MCHC RDW Plt Count MPV Neut % (Auto) Lymph % (Auto) [place] % (Auto) Eos % (Auto) Baso % (Auto) Neut # (Auto) Lymph # (Auto) [place] # (Auto) Eos # (Auto) Baso # (Auto) PT INR APTT Sodium 140 Potassium 4.1 Chloride 104 Carbon Dioxide 23 Anion Gap 17 BUN 13 Creatinine 1.0 Est GFR ( Amer) > 60 Est GFR (Non-Af Amer) > 60 Random Glucose 126 H Calcium 9.1 Total Bilirubin 0.3 AST 17 D ALT 24 Alkaline Phosphatase 79 Total Protein 7.4 Albumin 3.7 Globulin 3.7 Albumin/Globulin Ratio 1.0 Triglycerides 186 H Cholesterol 153 LDL Cholesterol Direct 89 HDL Cholesterol 27 L Vitamin B12 291 Urine Color Urine Clarity Urine pH Ur Specific [place] Urine Protein Urine Glucose (UA) Urine Ketones Urine Blood Urine Nitrate Urine Bilirubin Urine Urobilinogen Ur Leukocyte Esterase Urine RBC (Auto) Urine Microscopic WBC Urine Opiates Screen Urine Methadone Screen Ur Barbiturates Screen Ur Phencyclidine Scrn Ur Amphetamines Screen U Benzodiazepines Scrn U Oth Cocaine Metabols U Cannabinoids Screen HIV-1 Ab Rapid Screen Non reactive Assessment & Plan - Assessment and Plan (Free Text) Assessment: 32 yo man w/ scrotal abscess. Has moderately elevated requirement due to recent opioid use as outpatient. - d/c Morphine - start Dilaudid 1mg IV q4h PRN - can transition to Oxycodone 10mg when appropriate
--- NOTE | 2018-06-02 14:14 | CP.PCM.CON ---
History of Present Illness - History of Present Illness History of Present Illness: General Surgery Consulted for left gluteal cellulitis. Pt is a healthy 32y male with a hx of hidradenitis suppurtiva who presented to the ED for worsening right scrotal pain. He reports the pain in his scrotum started about 6 weeks ago as well as pain the left buttock. He reports presenting the ED 6 weeks ago, had an I&D, prescribed antibiotics and discharged home. He states since then the pain has not improved. He followed up output with a general surgery in [facility], Dr. Bhandari, who he continues to see. He states his general surgeon is trying to coordinate surgery with plastics and a colorectal surgeon. He reports he was told he needed a colorectal surgeon based on the results of a MRI he had done recently in [facility] showing the inflammation is involving most of his pelvic region. Pt reports he has been having drainage and pain from the left buttock for weeks, the pain is exacerbated when he stands for about 30 mins. He also reports that he currently has pain in axillary regions as well with some drainage. Last fever was 2 weeks ago, (-) night sweats, (-) chills. Pt denies any local trauma to the left buttock. Review of Systems - Review of Systems All systems: reviewed and no additional remarkable complaints except - Constitutional Constitutional: As Per HPI - Cardiovascular Cardiovascular: absent: Chest Pain, Dyspnea - Respiratory Respiratory: absent: Dyspnea, Dyspnea on Exertion - Gastrointestinal Gastrointestinal: absent: Abdominal Pain, Constipation, Diarrhea, Nausea, Vomiting - Genitourinary Genitourinary: Difficulty Urinating (When his scrotal region is inflamed) - Musculoskeletal Musculoskeletal: absent: Arthralgias, Joint Swelling - Integumentary Integumentary: As Per HPI - Neurological Neurological: absent: Frequent Falls Past Patient History - Past Medical History & Family History Past Medical History?: Yes - Past Social History Smoking Status: Never Smoked Alcohol: Occasional Drugs: Denies - CARDIAC Hx Cardiac Disorders: No - PULMONARY Hx Respiratory Disorders: No - NEUROLOGICAL Hx Neurological Disorder: No - HEENT Hx HEENT Problems: No - RENAL Hx Chronic Kidney Disease: No - ENDOCRINE/METABOLIC Hx Endocrine Disorders: No - HEMATOLOGICAL/ONCOLOGICAL Hx Blood Disorders: No - INTEGUMENTARY Hx Dermatological Problems: Yes (Pt has hidradenitis suppurativa) Other/Comment: scrotol abscess one year ago; treatment included debridement of abscess - MUSCULOSKELETAL/RHEUMATOLOGICAL Hx Musculoskeletal Disorders: No Hx Falls: No Hx Fractures: Yes - GASTROINTESTINAL Hx Gastrointestinal Disorders: No - GENITOURINARY/GYNECOLOGICAL Hx Genitourinary Disorders: No - PSYCHIATRIC Hx Psychophysiologic Disorder: No Hx Substance Use: No - SURGICAL HISTORY Hx Surgeries: Yes Other/Comment: Scrotal debridement. Axillary debridement. Multiple I&Ds. Right hand surgery. Right ankle Surgery - ANESTHESIA Hx Anesthesia: Yes Hx Anesthesia Reactions: No Hx Malignant Hyperthermia: No Meds Allergies/Adverse Reactions: Allergies Allergy/AdvReac Type Severity Reaction Status Date / Time shellfish derived Allergy ITCHING Verified 04/27/18 21:48 - Medications Medications: Current Medications Acetaminophen (Tylenol 325mg Tab) 650 mg PO Q6 PRN PRN Reason: Pain, moderate (4-7) Hydromorphone HCl (Dilaudid) 1 mg IVP Q4 PRN PRN Reason: Pain, severe (8-10) Sodium Chloride (Sodium Chloride 0.9%) 1,000 mls @ 100 mls/hr IV .Q10H PATTI Stop: 06/03/18 05:34 Last Admin: 06/02/18 05:57 Dose: 100 mls/hr Vancomycin HCl 1 gm/ Sodium (Chloride) 250 mls @ 166.667 mls/hr IVPB Q12 PATTI; Protocol Last Admin: 06/02/18 10:05 Dose: 166.667 mls/hr Piperacillin Sod/Tazobactam (Sod 3.375 gm/ Sodium Chloride) 100 mls @ 100 mls/hr IVPB Q6H PATTI; Protocol Last Admin: 06/02/18 13:08 Dose: 100 mls/hr Physical Exam - Constitutional Appears: Well - Head Exam Head Exam: ATRAUMATIC - Eye Exam Eye Exam: Normal appearance - ENT Exam ENT Exam: Mucous Membranes Moist - Neck Exam Neck exam: Positive for: Normal Inspection - Respiratory Exam Respiratory Exam: Clear to Auscultation Bilateral, NORMAL BREATHING PATTERN - Cardiovascular Exam Cardiovascular Exam: REGULAR RHYTHM, +S1, +S2 - GI/Abdominal Exam GI & Abdominal Exam: Soft. absent: Tenderness - Skin Additional comments: Left buttock: (+) hyperpigmented, (+) generalized tenderness, (+) induration extending to perineal region, (+) draining sinus tracts with (+) purulent material, (-) erythema Inguinal region: (+) scarring from previous incision and drainages, Right inguinal, scrotal region: (+) tenderness, (+) induration extending down to perineal region, (+) draining sinus tracts with (+) purulent material Axillary Region: (+) scarring from previous incision and drainages. Right Axilla with (+) tenderness, (+) draining sinus tracts with (+) purulent material. Left axilla: (+) scarring as above, (-) no tenderness, (-) drainage. Results - Vital Signs Recent Vital Signs: Last Vital Signs Temp 97.8 F 06/02/18 07:51 Pulse 78 06/02/18 07:51 Resp 20 06/02/18 07:51 BP 103/60 06/02/18 07:51 Pulse Ox 99 06/02/18 07:51 - Labs Result Diagrams: 06/02/18 06:00 06/02/18 06:00 Labs: Laboratory Results - last 24 hr 06/01/18 06/01/18 06/01/18 22:00 22:20 22:20 WBC 13.8 H RBC 4.37 L Hgb 12.0 Hct 35.7 MCV 81.8 MCH 27.4 MCHC 33.5 RDW 15.7 H Plt Count 335 MPV 9.0 Neut % (Auto) 70.8 Lymph % (Auto) 19.3 L [place] % (Auto) 7.6 Eos % (Auto) 1.7 Baso % (Auto) 0.6 Neut # (Auto) 9.8 H Lymph # (Auto) 2.7 [place] # (Auto) 1.1 H Eos # (Auto) 0.2 Baso # (Auto) 0.1 PT 11.4 INR 1.0 APTT 36.9 Sodium 139 Potassium 4.7 Chloride 101 Carbon Dioxide 23 Anion Gap 20 BUN 13 Creatinine 0.8 Est GFR ( Amer) > 60 Est GFR (Non-Af Amer) > 60 Random Glucose 108 Calcium 9.2 Total Bilirubin 0.6 AST 28 ALT 33 Alkaline Phosphatase 75 Total Protein 8.6 H Albumin 4.2 Globulin 4.5 H Albumin/Globulin Ratio 0.9 L Triglycerides Cholesterol LDL Cholesterol Direct HDL Cholesterol Vitamin B12 Urine Color Urine Clarity Urine pH Ur Specific [place] Urine Protein Urine Glucose (UA) Urine Ketones Urine Blood Urine Nitrate Urine Bilirubin Urine Urobilinogen Ur Leukocyte Esterase Urine RBC (Auto) Urine Microscopic WBC Urine Opiates Screen Urine Methadone Screen Ur Barbiturates Screen Ur Phencyclidine Scrn Ur Amphetamines Screen U Benzodiazepines Scrn U Oth Cocaine Metabols U Cannabinoids Screen HIV-1 Ab Rapid Screen 06/01/18 06/01/18 06/02/18 22:20 22:20 06:00 WBC 10.6 RBC 4.13 L Hgb 11.2 L Hct 33.6 L MCV 81.4 MCH 27.1 MCHC 33.3 RDW 15.5 H Plt Count 320 MPV Neut % (Auto) Lymph % (Auto) [place] % (Auto) Eos % (Auto) Baso % (Auto) Neut # (Auto) Lymph # (Auto) [place] # (Auto) Eos # (Auto) Baso # (Auto) PT INR APTT Sodium Potassium Chloride Carbon Dioxide Anion Gap BUN Creatinine Est GFR ( Amer) Est GFR (Non-Af Amer) Random Glucose Calcium Total Bilirubin AST ALT Alkaline Phosphatase Total Protein Albumin Globulin Albumin/Globulin Ratio Triglycerides Cholesterol LDL Cholesterol Direct HDL Cholesterol Vitamin B12 Urine Color Yellow Urine Clarity Slighty-cloudy Urine pH 7.0 Ur Specific [place] 1.016 Urine Protein Negative Urine Glucose (UA) Neg Urine Ketones Negative Urine Blood Negative Urine Nitrate Negative Urine Bilirubin Negative Urine Urobilinogen 1.0 Ur Leukocyte Esterase Neg Urine RBC (Auto) 1 Urine Microscopic WBC < 1 Urine Opiates Screen Positive H Urine Methadone Screen Negative Ur Barbiturates Screen Negative Ur Phencyclidine Scrn Negative Ur Amphetamines Screen Negative U Benzodiazepines Scrn Negative U Oth Cocaine Metabols Negative U Cannabinoids Screen Negative HIV-1 Ab Rapid Screen 06/02/18 06/02/18 06:00 10:50 WBC RBC Hgb Hct MCV MCH MCHC RDW Plt Count MPV Neut % (Auto) Lymph % (Auto) [place] % (Auto) Eos % (Auto) Baso % (Auto) Neut # (Auto) Lymph # (Auto) [place] # (Auto) Eos # (Auto) Baso # (Auto) PT INR APTT Sodium 140 Potassium 4.1 Chloride 104 Carbon Dioxide 23 Anion Gap 17 BUN 13 Creatinine 1.0 Est GFR ( Amer) > 60 Est GFR (Non-Af Amer) > 60 Random Glucose 126 H Calcium 9.1 Total Bilirubin 0.3 AST 17 D ALT 24 Alkaline Phosphatase 79 Total Protein 7.4 Albumin 3.7 Globulin 3.7 Albumin/Globulin Ratio 1.0 Triglycerides 186 H Cholesterol 153 LDL Cholesterol Direct 89 HDL Cholesterol 27 L Vitamin B12 291 Urine Color Urine Clarity Urine pH Ur Specific [place] Urine Protein Urine Glucose (UA) Urine Ketones Urine Blood Urine Nitrate Urine Bilirubin Urine Urobilinogen Ur Leukocyte Esterase Urine RBC (Auto) Urine Microscopic WBC Urine Opiates Screen Urine Methadone Screen Ur Barbiturates Screen Ur Phencyclidine Scrn Ur Amphetamines Screen U Benzodiazepines Scrn U Oth Cocaine Metabols U Cannabinoids Screen HIV-1 Ab Rapid Screen Non reactive - Imaging and Cardiology CT scan - pelvis Status: Image reviewed by me Assessment & Plan - Assessment and Plan (Free Text) Assessment: Hidradenitis Suppurative Plan: No surgical intervention at this time, (-) abscess collection noted on CT scan, recommend to continue abx and apply warm compresses to area. Pain meds prn.
[2018-06-02] MEDS ORDERED: Chlorhexidine Gluconate 1 APPL/PKT TP ONE (14:22)
--- NOTE | 2018-06-02 16:16 | US ---
Date of service: 06/01/2018 HISTORY: right testicular pain, h/o abscess TECHNIQUE: Realtime sonography through the scrotum with color and doppler flow. COMPARISON: Testicular ultrasound performed 04/27/18 FINDINGS: RIGHT TESTICLE: Measures 4.3 x 3.1 x 2.0 cm. Homogeneous echotexture. Blood flow is demonstrated. RIGHT EPIDIDYMIS: 0.7 x 0.7 x 0.7 cm cyst. LEFT TESTICLE: Measures 4.8 x 2.6 x 2.0 cm. Homogeneous echotexture. Blood flow is demonstrated. LEFT EPIDIDYMIS: Unremarkable. HYDROCELE: None. VARICOCELE: None. OTHER FINDINGS: Hypoechoic hypervascular collection identified lateral to the right testes along the scrotal wall containing debris measuring approximately 4.0 x 1.7 x 0.7 cm. IMPRESSION: Hypoechoic hypervascular collection identified lateral to the right testes along the scrotal wall containing debris measuring approximately 4.0 x 1.7 x 0.7 cm. Abscess is favored. Neoplasm considered less likely but not excluded. Correlate clinically. Recommend continued follow-up to resolution. 0.7 cm right epididymal cyst. Preliminary impression was provided by [employer].
[2018-06-02] MEDS ORDERED: Midazolam 2 MG/2 ML VIAL ONE (17:04)
[2018-06-02] MEDS ORDERED: Propofol 10 mg/ml Inj (20 ML) ONE (17:04)
[2018-06-02] MEDS ORDERED: Lidocaine 2% MPF (5 ml) Inj ONE (17:05)
[2018-06-02] MEDS ORDERED: Lactated Ringer's 1,000 ML IV ONE (17:07)
[2018-06-02] MEDS ORDERED: Bupivacaine HCl 0.5% PF (10 ml) Inj ONE (17:37)
[2018-06-02] MEDS ORDERED: Bacitracin Ointment 30 GM TUBE ONE (17:38)
[2018-06-02] MEDS ORDERED: Bacitracin OINT 15GM TOP ONE (17:40)
[2018-06-02] MEDS: HYDROmorphone 0.5 mg/0.5 ml ISec IVP PRN ×3 (17:58→18:30)
[2018-06-03] MEDS: Piperacillin/Tazobact 3.375 GM in Sodium Chloride 0.9% 100 ML IVPB SCH ×4 (01:07→17:06)
--- NOTE | 2018-06-03 02:17 | OP ---
PROCEDURE DATE: 06/02/2018 PREOPERATIVE DIAGNOSIS: Right scrotal abscess. POSTOPERATIVE DIAGNOSIS: Right scrotal abscess. PROCEDURE PERFORMED: Incision and drainage of the scrotal abscess on the right side. DESCRIPTION OF PROCEDURE: The patient was placed on the operating room table in a supine position. The area of the groin was draped and prepped in a sterile manner. At this time, there was seen to be an indurated area that had been recently oozing a purulent material, and I incised over that area and with a Sandy clamp, I developed the tract of this abscess. It appeared to go down towards the perineal area. I was able to track it down to that area at which point, it then abruptly stopped. I irrigated the entire area with multiple doses of Bacitracin suspension and once cleared, then I put in iodoform packing. Practically, an entire bottle was able to be placed into this wound site area. I put some from top wound and some from bottom wound to pack the area completely. In wrapping up, I then saw a small area of purulent material from the left groin. It took a small Mosquito clamp in this area just to open it up, very little drain. This did not communicate in any significant manner. He also had one in the buttock which appeared to be a healing wound and again there was no significant purulent material effluxing from that site as well. So, at this point, then a loose dressing was placed over the wound site. I did put two tacking sutures with 3-0 Vicryl just to approximate some of the skin edges on the upper incision. The patient had probably less than 10 mL blood loss. He was taken from the operating room in good condition. David Savage MD
[2018-06-03] MEDS: Sodium Chloride 0.9% 1,000 ML IV SCH (02:19)
[2018-06-03] MEDS: Lactated Ringer's 1,000 ML IV SCH ×2 (04:19→14:29)
[2018-06-03 07:06] LABS: HEMOGLOBIN 10.5 g/dL (12.0-18.0); MEAN CELL VOLUME 81.3 fl (80.0-94.0); MEAN CORPUSCULAR HEMOGLOBIN 27.7 pg (27.0-31.0); MEAN CORPUSCULAR HGB CONC 34.1 g/dL (33.0-37.0); RBC 3.77 Mil/uL (4.40-5.90); RED CELL DISTRIBUTION WIDTH 15.6 % (11.5-14.5)
[2018-06-03 07:33] LABS: BLOOD UREA NITROGEN 10 mg/dl (9-20); CALCIUM 8.7 mg/dL (8.4-10.2); GFR NON-AFRICAN AMERICAN > 60
--- NOTE | 2018-06-03 08:41 | CON ---
DATE: 06/02/2018 This is a 32-year-old male patient, whom I was called to see on for a scrotal abscess. The patient came in through the emergency room, had a CAT scan done showing the presence of a 3 cm x 2 cm area of collection separate from the testicle on the right side. The patient was immediately given at that time IV Zosyn and vancomycin. The area was starting to drain as he was in the emergency room. This is not the first episode for this patient. He appears to have multiple abscesses prone to this in the whole pelvic area, perirectally as well as in the inguinal area. So the patient is going to be admitted. He is going to be on IV antibiotics, and I will bring him to the operating room later today for incision and drainage of scrotal abscess. David Savage MD
--- NOTE | 2018-06-03 11:54 | CP.PCM.PN ---
Subjective - Date & Time of Evaluation Date of Evaluation: 06/03/18 Time of Evaluation: 11:47 - Subjective Subjective: General Surgery Pt seen and examined by Dr. Prince this AM. Pt reports having pain in the right scrotal region as he is POD [address] incision and drainage with Dr. Savage and denies left buttock pain today. T max 100.3 this AM. Currently on Vanco and Zosyn. Labs and vitals noted PE Gen: Pt laying in bed, asleep, easily arousable Skin: Left buttock: (+) hyperpigmented, (+)decreased tenderness compared to yesterday, (+) induration extending to perineal region, (+) draining sinus tracts with (+) scant purulent material, (-) erythema Resp: (-) tachypnea A/P Hidradenitis Suppurativa, Left buttock No surgical intervention at this time. Will sign off, please reconsult as needed. Continue warm compresses and antibiotics. Objective - Vital Signs/Intake and Output Vital Signs (last 24 hours): Temp Pulse Resp BP Pulse Ox 99.5 F 79 18 115/76 97 06/03/18 08:24 06/03/18 08:24 06/03/18 08:24 06/03/18 08:24 06/03/18 08:24 - Medications Medications: Current Medications Acetaminophen (Tylenol 325mg Tab) 650 mg PO Q6 PRN PRN Reason: Pain, moderate (4-7) Cyanocobalamin (Vitamin B12 1000 Mcg/Ml Inj) 1,000 mcg IM DAILY PATTI Last Admin: 06/03/18 11:39 Dose: 1,000 mcg Hydromorphone HCl (Dilaudid) 1 mg IVP Q4 PRN PRN Reason: Pain, severe (8-10) Last Admin: 06/03/18 11:38 Dose: 1 mg Vancomycin HCl 1 gm/ Sodium (Chloride) 250 mls @ 166.667 mls/hr IVPB Q12 PATTI; Protocol Last Admin: 06/03/18 08:29 Dose: 166.667 mls/hr Piperacillin Sod/Tazobactam (Sod 3.375 gm/ Sodium Chloride) 100 mls @ 100 mls/hr IVPB Q6H PATTI; Protocol Last Admin: 06/03/18 11:44 Dose: 100 mls/hr Lactated Ringer's (Lactated Ringer's) 1,000 mls @ 100 mls/hr IV .Q10H PATTI Last Admin: 06/03/18 04:19 Dose: 100 mls/hr - Labs Labs: 06/03/18 06:30 06/03/18 06:30 PT 11.4 Seconds (9.8-13.1) 06/01/18 22:00 INR 1.0 06/01/18 22:00 APTT 36.9 Seconds (25.6-37.1) 06/01/18 22:00
--- NOTE | 2018-06-03 13:05 | CP.PCM.CON ---
History of Present Illness - History of Present Illness History of Present Illness: 32y male with a hx of hidradenitis suppurtiva who presented to the ED for worsening right scrotal pain. He reports the pain in his scrotum started about 6 weeks ago as well as pain the left buttock. He reports presenting the ED 6 weeks ago, had an I&D, prescribed antibiotics and discharged home. He states since then the pain has not improved. He followed up output with a general surgery in [facility], Dr. Bhandari, who he continues to see. He states his general surgeon is trying to coordinate surgery with plastics and a colorectal surgeon. He reports he was told he needed a colorectal surgeon based on the results of a MRI he had done recently in [facility] showing the inflammation is involving most of his pelvic region. Pt reports he has been having drainage and pain from the left buttock for weeks, the pain is exacerbated when he stands for about 30 mins. He also reports that he currently has pain in axillary regions as well with some drainage. Last fever was 2 weeks ago, (-) night sweats, (-) chills. Pt denies any local trauma to the left buttock. Past Patient History - Past Medical History & Family History Past Medical History?: Yes - Past Social History Smoking Status: Never Smoked Alcohol: Occasional Drugs: Denies - CARDIAC Hx Cardiac Disorders: No - PULMONARY Hx Respiratory Disorders: No - NEUROLOGICAL Hx Neurological Disorder: No - HEENT Hx HEENT Problems: No - RENAL Hx Chronic Kidney Disease: No - ENDOCRINE/METABOLIC Hx Endocrine Disorders: No - HEMATOLOGICAL/ONCOLOGICAL Hx Blood Disorders: No - INTEGUMENTARY Hx Dermatological Problems: Yes (Pt has hidradenitis suppurativa) Other/Comment: scrotol abscess one year ago; treatment included debridement of abscess - MUSCULOSKELETAL/RHEUMATOLOGICAL Hx Musculoskeletal Disorders: No Hx Falls: No Hx Fractures: Yes - GASTROINTESTINAL Hx Gastrointestinal Disorders: No - GENITOURINARY/GYNECOLOGICAL Hx Genitourinary Disorders: No - PSYCHIATRIC Hx Psychophysiologic Disorder: No Hx Substance Use: No - SURGICAL HISTORY Hx Surgeries: Yes Other/Comment: Scrotal debridement. Axillary debridement. Multiple I&Ds. Right hand surgery. Right ankle Surgery - ANESTHESIA Hx Anesthesia: Yes Hx Anesthesia Reactions: No Hx Malignant Hyperthermia: No Meds Allergies/Adverse Reactions: Allergies Allergy/AdvReac Type Severity Reaction Status Date / Time shellfish derived Allergy ITCHING Verified 04/27/18 21:48 - Medications Medications: Current Medications Acetaminophen (Tylenol 325mg Tab) 650 mg PO Q6 PRN PRN Reason: Pain, moderate (4-7) Hydromorphone HCl (Dilaudid) 1 mg IVP Q4 PRN PRN Reason: Pain, severe (8-10) Last Admin: 06/02/18 23:39 Dose: 1 mg Sodium Chloride (Sodium Chloride 0.9%) 1,000 mls @ 100 mls/hr IV .Q10H PATTI Stop: 06/03/18 05:34 Last Admin: 06/02/18 05:57 Dose: 100 mls/hr Vancomycin HCl 1 gm/ Sodium (Chloride) 250 mls @ 166.667 mls/hr IVPB Q12 PATTI; Protocol Last Admin: 06/02/18 21:17 Dose: 166.667 mls/hr Piperacillin Sod/Tazobactam (Sod 3.375 gm/ Sodium Chloride) 100 mls @ 100 mls/hr IVPB Q6H PATTI; Protocol Last Admin: 06/02/18 18:00 Dose: 100 mls Lactated Ringer's (Lactated Ringer's) 1,000 mls @ 100 mls/hr IV .Q10H PATTI Results - Vital Signs Recent Vital Signs: Last Vital Signs Temp 97.7 F 06/02/18 19:03 Pulse 82 06/02/18 19:03 Resp 20 06/02/18 19:03 BP 124/71 06/02/18 19:03 Pulse Ox 99 06/02/18 19:03 - Labs Result Diagrams: 06/02/18 06:00 06/02/18 06:00 Labs: Laboratory Results - last 24 hr 06/02/18 06/02/18 06/02/18 06:00 06:00 10:50 WBC 10.6 RBC 4.13 L Hgb 11.2 L Hct 33.6 L MCV 81.4 MCH 27.1 MCHC 33.3 RDW 15.5 H Plt Count 320 Sodium 140 Potassium 4.1 Chloride 104 Carbon Dioxide 23 Anion Gap 17 BUN 13 Creatinine 1.0 Est GFR ( Amer) > 60 Est GFR (Non-Af Amer) > 60 Random Glucose 126 H Hemoglobin A1c 5.9 Calcium 9.1 Total Bilirubin 0.3 AST 17 D ALT 24 Alkaline Phosphatase 79 Total Protein 7.4 Albumin 3.7 Globulin 3.7 Albumin/Globulin Ratio 1.0 Triglycerides 186 H Cholesterol 153 LDL Cholesterol Direct 89 HDL Cholesterol 27 L Vitamin B12 291 HIV-1 Ab Rapid Screen 06/02/18 10:50 WBC RBC Hgb Hct MCV MCH MCHC RDW Plt Count Sodium Potassium Chloride Carbon Dioxide Anion Gap BUN Creatinine Est GFR ( Amer) Est GFR (Non-Af Amer) Random Glucose Hemoglobin A1c Calcium Total Bilirubin AST ALT Alkaline Phosphatase Total Protein Albumin Globulin Albumin/Globulin Ratio Triglycerides Cholesterol LDL Cholesterol Direct HDL Cholesterol Vitamin B12 HIV-1 Ab Rapid Screen Non reactive
--- NOTE | 2018-06-03 13:07 | CP.PCM.CON ---
History of Present Illness - History of Present Illness History of Present Illness: 32y male with a hx of hidradenitis suppurtiva who presented to the ED for worsening right scrotal pain. He reports the pain in his scrotum started about 6 weeks ago and had an I&D, prescribed antibiotics and discharged home. He was told he needed a colorectal surgeon based on the results of a MRI he had done recently in [facility] showing the inflammation is involving most of his pelvic region. Surgery on board ID consulted for antibiotic management IV rx in progress cultures pending Review of Systems - Review of Systems All systems: reviewed and no additional remarkable complaints except - Constitutional Constitutional: As Per HPI - EENT Eyes: absent: As Per HPI, Blind Spots, Blurred Vision, Change in Vision, Decreased Night Vision, Diplopia, Discharge, Dry Eye, Exophthalmos, Floaters, Irritation, Itchy Eyes, Loss of Peripheral Vision, Pain, Photophobia, Requires Corrective Lenses, Sees Flashes, Spots in Vision, Tunnel Vision, Other Visual Disturbances, Loss of Vision, Other Ears: absent: As Per HPI, Decreased Hearing, Ear Discharge, Ear Pain, Tinnitus, Abnormal Hearing, Disequilibrium, Dizziness, Other Nose/Mouth/Throat: absent: As Per HPI, Epistaxis, Nasal Congestion, Nasal Discharge, Nasal Obstruction, Nasal Trauma, Nose Pain, Post Nasal Drip, Sinus Pain, Sinus Pressure, Bleeding Gums, Change in Voice, Dental Pain, Dry Mouth, Dysphagia, Halitosis, Hoarsness, Lip Swelling, Mouth Lesions, Mouth Pain, Odyn ophagia, Sore Throat, Throat Swelling, Tongue Swelling, Facial Pain, Neck Pain, Neck Mass, Other - Cardiovascular Cardiovascular: absent: As Per HPI, Acrocyanosis, Chest Pain, Chest Pain at Rest, Chest Pain with Activity, Claudication, Diaphoresis, Dyspnea, Dyspnea on Exertion, Edema, Irregular Heart Rhythm, Pain Radiating to Arm/Neck/Jaw, Leg Edema, Leg Ulcers, Lightheadedness, Orthopnea, Palpitations, Paroxysmal Nocturnal Dyspnea, Pedal Edema, Radiating Pain, Rapid Heart Rate, Slow Heart Rate, Syncope, Other - Respiratory Respiratory: As Per HPI. absent: Cough, Dyspnea, Hemoptysis, Dyspnea on Exertion, Wheezing, Snoring, Stridor, Pain on Inspiration, Chest Congestion, Excessive Mucous Production, Change in Mucous Color, Pain with Coughing, Other - Gastrointestinal Gastrointestinal: As Per HPI - Genitourinary Genitourinary: As Per HPI - Reproductive: Male Reproductive:Male: As Per HPI - Musculoskeletal Musculoskeletal: As Per HPI. absent: Abnormal Gait, Arthralgias, Atrophy, Back Pain, Deformity, Joint Swelling, Limited Range of Motion, Loss of Height, Muscle Cramps, Muscle Weakness, Myalgias, Neck Pain, Numbness, Radiating Pain into Limb, Stiffness, Tingling, Other - Integumentary Integumentary: As Per HPI, Skin Pain, Wounds Past Patient History - Past Medical History & Family History Past Medical History?: Yes - Past Social History Smoking Status: Never Smoked Alcohol: Occasional Drugs: Denies - CARDIAC Hx Cardiac Disorders: No - PULMONARY Hx Respiratory Disorders: No - NEUROLOGICAL Hx Neurological Disorder: No - HEENT Hx HEENT Problems: No - RENAL Hx Chronic Kidney Disease: No - ENDOCRINE/METABOLIC Hx Endocrine Disorders: No - HEMATOLOGICAL/ONCOLOGICAL Hx Blood Disorders: No - INTEGUMENTARY Hx Dermatological Problems: Yes (Pt has hidradenitis suppurativa) Other/Comment: scrotol abscess one year ago; treatment included debridement of abscess - MUSCULOSKELETAL/RHEUMATOLOGICAL Hx Musculoskeletal Disorders: No Hx Falls: No Hx Fractures: Yes - GASTROINTESTINAL Hx Gastrointestinal Disorders: No - GENITOURINARY/GYNECOLOGICAL Hx Genitourinary Disorders: No - PSYCHIATRIC Hx Psychophysiologic Disorder: No Hx Substance Use: No - SURGICAL HISTORY Hx Surgeries: Yes Other/Comment: Scrotal debridement. Axillary debridement. Multiple I&Ds. Right hand surgery. Right ankle Surgery - ANESTHESIA Hx Anesthesia: Yes Hx Anesthesia Reactions: No Hx Malignant Hyperthermia: No Meds Allergies/Adverse Reactions: Allergies Allergy/AdvReac Type Severity Reaction Status Date / Time shellfish derived Allergy ITCHING Verified 04/27/18 21:48 - Medications Medications: Current Medications Acetaminophen (Tylenol 325mg Tab) 650 mg PO Q6 PRN PRN Reason: Pain, moderate (4-7) Cyanocobalamin (Vitamin B12 1000 Mcg/Ml Inj) 1,000 mcg IM DAILY PATTI Last Admin: 06/03/18 11:39 Dose: 1,000 mcg Hydromorphone HCl (Dilaudid) 1 mg IVP Q4 PRN PRN Reason: Pain, severe (8-10) Last Admin: 06/03/18 11:38 Dose: 1 mg Vancomycin HCl 1 gm/ Sodium (Chloride) 250 mls @ 166.667 mls/hr IVPB Q12 PATTI; Protocol Last Admin: 06/03/18 08:29 Dose: 166.667 mls/hr Piperacillin Sod/Tazobactam (Sod 3.375 gm/ Sodium Chloride) 100 mls @ 100 mls/hr IVPB Q6H PATTI; Protocol Last Admin: 06/03/18 11:44 Dose: 100 mls/hr Lactated Ringer's (Lactated Ringer's) 1,000 mls @ 100 mls/hr IV .Q10H [facility] Last Admin: 06/03/18 04:19 Dose: 100 mls/hr Physical Exam - Constitutional Appears: No Acute Distress, Chronically Ill - Head Exam Head Exam: ATRAUMATIC, NORMOCEPHALIC - Eye Exam Eye Exam: absent: Scleral icterus - ENT Exam ENT Exam: Mucous Membranes Dry - Neck Exam Neck exam: Negative for: Lymphadenopathy - Respiratory Exam Respiratory Exam: Decreased Breath Sounds - Cardiovascular Exam Cardiovascular Exam: REGULAR RHYTHM - GI/Abdominal Exam GI & Abdominal Exam: Diminished Bowel Sounds, Soft. absent: Tenderness - Rectal Exam Rectal Exam: Deferred - Exam Exam: Scrotal Swelling, Testicular Tenderness. absent: NORMAL INSPECTION - Extremities Exam Extremities exam: Positive for: pedal pulses present. Negative for: calf tenderness, pedal edema, tenderness - Back Exam Back exam: absent: CVA tenderness (L), CVA tenderness (R) - Neurological Exam Neurological exam: Alert, CN II-XII Intact, Oriented x3, Reflexes Normal - Psychiatric Exam Psychiatric exam: Depressed - Skin Skin Exam: Dry Results - Vital Signs Recent Vital Signs: Last Vital Signs Temp 99.5 F 06/03/18 08:24 Pulse 79 06/03/18 08:24 Resp 18 06/03/18 08:24 BP 115/76 06/03/18 08:24 Pulse Ox 97 06/03/18 08:24 - Labs Result Diagrams: 06/03/18 06:30 06/03/18 06:30 Labs: Laboratory Results - last 24 hr 06/02/18 06/03/18 06/03/18 10:50 06:30 06:30 WBC 11.0 H RBC 3.77 L Hgb 10.5 L Hct 30.7 L MCV 81.3 MCH 27.7 MCHC 34.1 RDW 15.6 H Plt Count 299 Sodium 139 Potassium 4.2 Chloride 102 Carbon Dioxide 26 Anion Gap 15 BUN 10 Creatinine 1.0 Est GFR ( Amer) > 60 Est GFR (Non-Af Amer) > 60 Random Glucose 98 Hemoglobin A1c 5.9 Calcium 8.7 Assessment & Plan (1) Cellulitis Status: Acute (2) Scrotal abscess Status: Acute - Assessment and Plan (Free Text) Assessment: await cultures surgical follow up re MRI findings consider GI evaal IV antibioticsa reordered
--- NOTE | 2018-06-03 14:03 | CP.PCM.PN ---
Subjective - Date & Time of Evaluation Date of Evaluation: 06/03/18 Time of Evaluation: 08:00 - Subjective Subjective: Pt seen and examined this am. Complains of groin pain. Objective - Vital Signs/Intake and Output Vital Signs (last 24 hours): Temp Pulse Resp BP Pulse Ox 99.5 F 79 18 115/76 97 06/03/18 08:24 06/03/18 08:24 06/03/18 08:24 06/03/18 08:24 06/03/18 08:24 - Medications Medications: Current Medications Acetaminophen (Tylenol 325mg Tab) 650 mg PO Q6 PRN PRN Reason: Pain, moderate (4-7) Cyanocobalamin (Vitamin B12 1000 Mcg/Ml Inj) 1,000 mcg IM DAILY PATTI Last Admin: 06/03/18 11:39 Dose: 1,000 mcg Hydromorphone HCl (Dilaudid) 1 mg IVP Q4 PRN PRN Reason: Pain, severe (8-10) Last Admin: 06/03/18 11:38 Dose: 1 mg Vancomycin HCl 1 gm/ Sodium (Chloride) 250 mls @ 166.667 mls/hr IVPB Q12 PATTI; Protocol Last Admin: 06/03/18 08:29 Dose: 166.667 mls/hr Piperacillin Sod/Tazobactam (Sod 3.375 gm/ Sodium Chloride) 100 mls @ 100 mls/hr IVPB Q6H PATTI; Protocol Last Admin: 06/03/18 11:44 Dose: 100 mls/hr Lactated Ringer's (Lactated Ringer's) 1,000 mls @ 100 mls/hr IV .Q10H PATTI Last Admin: 06/03/18 04:19 Dose: 100 mls/hr - Labs Labs: 06/03/18 06:30 06/03/18 06:30 PT 11.4 Seconds (9.8-13.1) 06/01/18 22:00 INR 1.0 06/01/18 22:00 APTT 36.9 Seconds (25.6-37.1) 06/01/18 22:00 - Constitutional Appears: No Acute Distress - Head Exam Head Exam: NORMAL INSPECTION - Respiratory Exam Respiratory Exam: Clear to Ausculation Bilateral - Cardiovascular Exam Cardiovascular Exam: REGULAR RHYTHM - Extremities Exam Extremities Exam: Normal Inspection - Neurological Exam Neurological Exam: Alert, Oriented x3 Assessment and Plan - Assessment and Plan (Free Text) Assessment: Pt is a 32 y/o male with hx of recurrent scrotal abscess and recently admitted 1 month ago for a scrotal abscess (s/p I&D by Urology) presents to hospital for persistent Right scrotal abscess, S/P I&D w/ packing by urology yesterday LE CT: Cellulitis scattered from central to medial buttock ~4.2cm at greatest dimension- suspicious for phlegmon or possible small abscess. BL LAD. Testicular US: Hypoechoic hypovascular collection seen lateral to right testicle containing debri ~3.99cm with volume 2.28ml abscess. #Scrotal Abscess #Hidrangitis Supperativa - Urology, ID, and General Surgery consulted - Will await cultures, c/w IV Abx as ordered - Surgery recommendations appreciated- no surgical intervention, warm compress Discussed case with Dr. Nupur Chao, PGY2
--- NOTE | 2018-06-03 21:54 | CP.PCM.PN ---
Subjective - Date & Time of Evaluation Date of Evaluation: 06/03/18 Time of Evaluation: 11:30 - Subjective Subjective: UROLOGY pt POD#! I&D scrotal abscess. Pt informed me that the dressing and packing fell out. There were two ports where the wound site was packed. The upper site contained more than 12 feet of packing that " fell out" I dont think this just happened The lower packing which is about 12 inches was still in place. Now I tell the patient i wanted to repack the wound site he insisted on more iv pain meds prior to readd cheryl. He received iv pain meds just 1 hour before and besides which he no longer has IV access. I told him that I would try to replace as much as i could but he refused multiple times. I traded words with him and basically told him if he does not want to accept my advice for treatment that this will be the last time he will see me. In spite of me doing more for him at the time of surgery that he initally signed for,and for his refusal of treatment today then I see no further need to plead to care for him. Personal issues aside I advise now that he has no IV access to continue PO antibiotics as advised by Dr Zaldivar for at least two more weeks Objective - Vital Signs/Intake and Output Vital Signs (last 24 hours): Temp Pulse Resp BP Pulse Ox 98.7 F 85 18 123/74 96 06/03/18 16:27 06/03/18 16:27 06/03/18 16:27 06/03/18 16:27 06/03/18 16:27 - Medications Medications: Current Medications Acetaminophen (Tylenol 325mg Tab) 650 mg PO Q6 PRN PRN Reason: Pain, moderate (4-7) Last Admin: 06/03/18 20:09 Dose: 650 mg Cyanocobalamin (Vitamin B12 1000 Mcg/Ml Inj) 1,000 mcg IM DAILY PATTI Last Admin: 06/03/18 11:39 Dose: 1,000 mcg Hydromorphone HCl (Dilaudid) 1 mg IVP Q6 PRN PRN Reason: Pain, severe (8-10) Last Admin: 06/03/18 17:06 Dose: 1 mg Vancomycin HCl 1 gm/ Sodium (Chloride) 250 mls @ 166.667 mls/hr IVPB Q12 PATTI; Protocol Last Admin: 06/03/18 08:29 Dose: 166.667 mls/hr Piperacillin Sod/Tazobactam (Sod 3.375 gm/ Sodium Chloride) 100 mls @ 100 mls/hr IVPB Q6H PATTI; Protocol Last Admin: 06/03/18 17:06 Dose: 100 mls/hr Lactated Ringer's (Lactated Ringer's) 1,000 mls @ 100 mls/hr IV .Q10H PATTI Last Admin: 06/03/18 14:29 Dose: Not Given - Labs Labs: 06/03/18 06:30 06/03/18 06:30 PT 11.4 Seconds (9.8-13.1) 06/01/18 22:00 INR 1.0 06/01/18 22:00 APTT 36.9 Seconds (25.6-37.1) 06/01/18 22:00
[2018-06-04 00:02] VITALS: TEMP 98.1
[2018-06-04] MEDS: Piperacillin/Tazobact 3.375 GM in Sodium Chloride 0.9% 100 ML IVPB SCH ×3 (00:40→13:40)
[2018-06-04] MEDS: Lactated Ringer's 1,000 ML IV SCH ×2 (04:35→10:15)
[2018-06-04 10:46] LABS: HEMOGLOBIN 11.2 g/dL (12.0-18.0); MEAN CELL VOLUME 81.4 fl (80.0-94.0); MEAN CORPUSCULAR HEMOGLOBIN 27.4 pg (27.0-31.0); MEAN CORPUSCULAR HGB CONC 33.6 g/dL (33.0-37.0); RBC 4.09 Mil/uL (4.40-5.90); RED CELL DISTRIBUTION WIDTH 15.5 % (11.5-14.5); WHITE BLOOD COUNT 9.1 K/uL (4.8-10.8)
--- NOTE | 2018-06-04 12:55 | CP.PCM.DIS ---
Provider - Provider Date of Admission: 06/02/18 00:15 Attending physician: Cleveland Espitia MD Consults: 06/02/18 00:05 Urology Consult Stat Comment: Consulting Provider: David Savage Consulting Physician: David Savage Reason for Consult: right scrotal abscess 06/02/18 12:01 Anesthesiology Consult Routine Comment: Consulting Provider: Felecia Yuan Consulting Physician: Felecia Yuan Reason for Consult: Scrotal pain, chronic opoid use 06/02/18 12:16 General Surgery Consult Routine Comment: Consulting Provider: Isrrael Nunez Consulting Physician: Isrrael Nunez Reason for Consult: Left buttock abscess Infectious Disease Consult Routine Comment: Consulting Provider: Khris Zaldivar Consulting Physician: Khris Zaldivar Reason for Consult: scrotal/Left buttock abscess Time Spent in preparation of Discharge (in minutes): 35 Diagnosis - Discharge Diagnosis (1) Hidradenitis suppurativa Status: Chronic (2) Scrotal abscess Status: Resolved Hospital Course - Lab Results Lab Results: Micro Results 06/01/18 22:00 Blood-Venous Blood Culture - Preliminary NO GROWTH AFTER 48 HOURS 06/01/18 22:30 Blood-Venous Blood Culture - Preliminary NO GROWTH AFTER 48 HOURS Most Recent Lab Values WBC 9.1 K/uL (4.8-10.8) 06/04/18 10:30 RBC 4.09 Mil/uL (4.40-5.90) L 06/04/18 10:30 Hgb 11.2 g/dL (12.0-18.0) L 06/04/18 10:30 Hct 33.3 % (35.0-51.0) L 06/04/18 10:30 MCV 81.4 fl (80.0-94.0) 06/04/18 10:30 MCH 27.4 pg (27.0-31.0) 06/04/18 10:30 MCHC 33.6 g/dL (33.0-37.0) 06/04/18 10:30 RDW 15.5 % (11.5-14.5) H 06/04/18 10:30 Plt Count 303 K/uL (130-400) 06/04/18 10:30 MPV 9.0 fl (7.2-11.7) 06/01/18 22:20 Neut % (Auto) 70.8 % (50.0-75.0) 06/01/18 22:20 Lymph % (Auto) 19.3 % (20.0-40.0) L 06/01/18 22:20 Finney % (Auto) 7.6 % (0.0-10.0) 06/01/18 22:20 Eos % (Auto) 1.7 % (0.0-4.0) 06/01/18 22:20 Baso % (Auto) 0.6 % (0.0-2.0) 06/01/18 22:20 Neut # (Auto) 9.8 K/uL (1.8-7.0) H 06/01/18 22:20 Lymph # (Auto) 2.7 K/uL (1.0-4.3) 06/01/18 22:20 Finney # (Auto) 1.1 K/uL (0.0-0.8) H 06/01/18 22:20 Eos # (Auto) 0.2 K/uL (0.0-0.7) 06/01/18 22:20 Baso # (Auto) 0.1 K/uL (0.0-0.2) 06/01/18 22:20 PT 11.4 Seconds (9.8-13.1) 06/01/18 22:00 INR 1.0 06/01/18 22:00 APTT 36.9 Seconds (25.6-37.1) 06/01/18 22:00 Sodium 139 mmol/l (132-148) 06/03/18 06:30 Potassium 4.2 MMOL/L (3.6-5.0) 06/03/18 06:30 Chloride 102 mmol/L (98-107) 06/03/18 06:30 Carbon Dioxide 26 mmol/L (22-30) 06/03/18 06:30 Anion Gap 15 (10-20) 06/03/18 06:30 BUN 10 mg/dl (9-20) 06/03/18 06:30 Creatinine 1.0 mg/dl (0.8-1.5) 06/03/18 06:30 Est GFR ( Amer) > 60 06/03/18 06:30 Est GFR (Non-Af Amer) > 60 06/03/18 06:30 Random Glucose 98 mg/dL (75-110) 06/03/18 06:30 Hemoglobin A1c 5.9 % (4.2-6.5) 06/02/18 10:50 Calcium 8.7 mg/dL (8.4-10.2) 06/03/18 06:30 Total Bilirubin 0.3 mg/dl (0.2-1.3) 06/02/18 06:00 AST 17 U/L (17-59) D 06/02/18 06:00 ALT 24 U/L (21-72) 06/02/18 06:00 Alkaline Phosphatase 79 U/L (38-126) 06/02/18 06:00 Total Protein 7.4 G/DL (6.3-8.2) 06/02/18 06:00 Albumin 3.7 g/dL (3.5-5.0) 06/02/18 06:00 Globulin 3.7 gm/dL (2.2-3.9) 06/02/18 06:00 Albumin/Globulin Ratio 1.0 (1.0-2.1) 06/02/18 06:00 Triglycerides 186 mg/DL (0-149) H 06/02/18 06:00 Cholesterol 153 mg/dL (0-199) 06/02/18 06:00 LDL Cholesterol Direct 89 mg/dL (0-129) 06/02/18 06:00 HDL Cholesterol 27 MG/DL (30-70) L 06/02/18 06:00 Vitamin B12 291 pg/mL (239-931) 06/02/18 06:00 Urine Color Yellow (YELLOW) 06/01/18 22:20 Urine Clarity Slighty-cloudy (Clear) 06/01/18 22:20 Urine pH 7.0 (5.0-8.0) 06/01/18 22:20 Ur Specific Ripley 1.016 (1.003-1.030) 06/01/18 22:20 Urine Protein Negative mg/dL (NEGATIVE) 06/01/18 22:20 Urine Glucose (UA) Neg mg/dL (NEGATIVE) 06/01/18 22:20 Urine Ketones Negative mg/dL (NEGATIVE) 06/01/18 22:20 Urine Blood Negative (NEGATIVE) 06/01/18 22:20 Urine Nitrate Negative (NEGATIVE) 06/01/18 22:20 Urine Bilirubin Negative (NEGATIVE) 06/01/18 22:20 Urine Urobilinogen 1.0 mg/dL (0.2-1.0) 06/01/18 22:20 Ur Leukocyte Esterase Neg Faby/uL (Negative) 06/01/18 22:20 Urine RBC (Auto) 1 /hpf (0-3) 06/01/18 22:20 Urine Microscopic WBC < 1 /hpf (0-5) 06/01/18 22:20 Vancomycin Trough < 5.0 ug/mL (5.0-10.0) L 06/04/18 08:00 Urine Opiates Screen Positive (NEGATIVE) H 06/01/18 22:20 Urine Methadone Screen Negative (NEGATIVE) 06/01/18 22:20 Ur Barbiturates Screen Negative (NEGATIVE) 06/01/18 22:20 Ur Phencyclidine Scrn Negative (NEGATIVE) 06/01/18 22:20 Ur Amphetamines Screen Negative (NEGATIVE) 06/01/18 22:20 U Benzodiazepines Scrn Negative (NEGATIVE) 06/01/18 22:20 U Oth Cocaine Metabols Negative (NEGATIVE) 06/01/18 22:20 U Cannabinoids Screen Negative (NEGATIVE) 06/01/18 22:20 HIV-1 Ab Rapid Screen Non reactive (NON REAC) 06/02/18 10:50 - Hospital Course Hospital Course: Pt is a 32 y/o male with hx of recurrent scrotal abscess and recently admitted 1 month ago for a scrotal abscess (s/p I&D by Urology) presents to hospital for persistent Right scrotal abscess and had I&D w/ packing by urology on 06/02. Pt tolerated well but packing "fell out" and pt was uncooperative with continued treatment with Urologist. He was also evaluated by surgery and they did not recommend any surgical intervention. He was on Vancomycin and Zosyn for 3 days and discharged on Clinda and Flagyl for 5 days as per ID recommendations. Pt has f/u with colorectal surgeon planned for management if his recurrent abscess and advised to f/u with them. His leukocytosis resolved and his pain was well controlled on discharge. Imaging: LE CT: Cellulitis scattered from central to medial buttock ~4.2cm at greatest dimension- suspicious for phlegmon or possible small abscess. BL LAD. Testicular US: Hypoechoic hypovascular collection seen lateral to right testicle containing debri ~3.99cm with volume 2.28ml abscess. Discussed case with Dr. Nupur Chao, PGY2 Discharge Exam - Head Exam Head Exam: NORMAL INSPECTION - Eye Exam Eye Exam: Normal appearance - ENT Exam ENT Exam: Mucous Membranes Moist - Respiratory Exam Respiratory Exam: Clear to PA & Lateral - GI/Abdominal Exam GI & Abdominal Exam: Normal Bowel Sounds - Neurological Exam Neurological exam: Alert, Normal Gait, Oriented x3 - Psychiatric Exam Psychiatric exam: Normal Affect Discharge Plan - Discharge Medications Prescriptions: Ciprofloxacin HCl [Cipro] 500 mg PO BID #10 tablet Clindamycin [Cleocin] 300 mg PO TID #15 cap Lactobacillus Acidophilus [Bacid Acidophilus] 1 cap PO BID #30 cap - Follow Up Plan Condition: FAIR Disposition: HOME/ ROUTINE Instructions: Abscess Incision and Drainage (DC), Cellulitis (Skin Infection), Adult (DC), Abscess (GEN) Additional Instructions: follow up with your primary and urologist 1 week Referrals: Cleveland Espitia MD [Staff Provider] - David Savage MD [Medical Doctor] -
[2018-06-04 13:26] VITALS: BMI 29.5
[2018-06-04 16:16] VITALS: BP 123/80; PULSE 68; RESP 18; O2SAT 93
== END 2018-06-04 18:00 | disposition home or self-care (01) ==
LOC: H.ER 19:23 → H.ERHOLD 06-02 00:15 → H.MEDSURG1 06-02 01:55
PROVIDERS: ADMIT Internal Medicine; ATTEND Internal Medicine
DX: N49.2 Inflammatory disorders of scrotum (principal); L73.2 Hidradenitis suppurativa; N50.3 Cyst of epididymis; N50.89 Other specified disorders of the male genital organs; Z91.013 Allergy to seafood
CPT/HCPCS: 36415; 55100; 72193; 80048; 80053; 80061; 80202; 80324; 80345; 80346; 80349; 80353; 80358; 80361; 81003; 82607; 83036; 83992; 85025; 85027; 85610; 85730; 87040; 87390; 93975; 96365; 96366; 96367; 96372; 96375; 96376; 99284; G0378; J1170; J1885; J2250; J2270; J2405; J2543; J2704; J2765; J3010; J3420; J7030; J7120; Q9967

== ENCOUNTER 2018-06-11 10:47 | Inpatient (IN) | payer OTHER ==
[2018-06-11 10:57] VITALS: BMI 30.4
[2018-06-11] MEDS ORDERED: Sodium Chloride 0.9% 1,000 ML IV ONE (12:05)
[2018-06-11] MEDS ORDERED: Piperacillin/Tazobact 3.375 GM in Sodium Chloride 0.9% 100 ML IVPB STA (12:10)
[2018-06-11] MEDS ORDERED: Morphine 4 MG/ML VIAL IVP ONE (12:20)
[2018-06-11] MEDS ORDERED: Morphine 4 MG/ML VIAL ONE (12:26)
[2018-06-11] MEDS ORDERED: Piperacillin/Tazobact 3.375 gm Inj IVPB ONE ×2 (12:26→16:07)
[2018-06-11 13:06] LABS: BASO # 0.1 K/uL (0.0-0.2); BASO % 0.6 % (0.0-2.0); EOS # 0.2 K/uL (0.0-0.7); EOS % 1.6 % (0.0-4.0); HEMOGLOBIN 11.9 g/dL (12.0-18.0); LYMPH # 1.9 K/uL (1.0-4.3); LYMPH % 16.4 % (20.0-40.0); MEAN CELL VOLUME 82.9 fl (80.0-94.0); MEAN CORPUSCULAR HEMOGLOBIN 27.2 pg (27.0-31.0); MEAN CORPUSCULAR HGB CONC 32.9 g/dL (33.0-37.0); MEAN PLATELET VOLUME 9.2 fl (7.2-11.7); MONO # 0.8 K/uL (0.0-0.8); MONO % 6.4 % (0.0-10.0); NEUT # 8.9 K/uL (1.8-7.0); NRBC % 0.1 % (0.0-0.0); RBC 4.37 Mil/uL (4.40-5.90); WHITE BLOOD COUNT 11.8 K/uL (4.8-10.8)
[2018-06-11 13:16] LABS: ALT/SGPT 30 U/L (21-72); AST/SGOT 20 U/L (17-59); BLOOD UREA NITROGEN 12 mg/dl (9-20); CALCIUM 9.3 mg/dL (8.4-10.2); GFR NON-AFRICAN AMERICAN > 60
[2018-06-11] MEDS ORDERED: Iohexol 300 100 ML IJ ONE (13:27)
[2018-06-11] MEDS ORDERED: Sodium Chloride 0.9% 50 ML IV ONE (13:27)
[2018-06-11 13:44] LABS: URINE BILIRUBIN NEGATIVE (NEGATIVE); URINE BLOOD NEGATIVE (NEGATIVE); URINE CLARITY CLEAR (Clear); URINE COLOR STRAW (YELLOW); URINE GLUCOSE (UA) NEG (NEGATIVE); URINE LEUKOCYTE ESTERASE NEG Leu/uL (Negative); URINE PROTEIN NEGATIVE (NEGATIVE); URINE UROBILINOGEN 0.2-1.0 mg/dL (0.2-1.0)
--- NOTE | 2018-06-11 14:17 | CT ---
Date of service: 06/11/2018 PROCEDURE: CT Pelvis with contrast HISTORY: r/o abscess; perianal COMPARISON: Pelvis CT with contrast 06/01/2018. TECHNIQUE: Contiguous axial images of the pelvis with contrast. Coronal and sagittal reformats generated. Contrast dose: Omnipaque 300, 100 cc Radiation dose: Total exam DLP = 769.83 mGy-cm. This CT exam was performed using one or more of the following dose reduction techniques: Automated exposure control, adjustment of the mA and/or kV according to patient size, and/or use of iterative reconstruction technique. FINDINGS: PE CT through the pelvis reveals stable appearing density, slightly lucent, with peripheral enhancement once again not significantly changed in size measuring 4.0 x 1.2 cm (image 79 series 2). At the deep subcutaneous fat at the left buttocks extending to the deep margins of the dermis which is thickened. It extends inferiorly toward the midline with a linear density without obvious fluid collection extending toward but not definitively contiguous with the perianal space. No definite perianal abscess is identified once again. Local reactive changes are appreciated related to the buttocks findings though this reactive pattern has diminished in the interval significantly. Separate small abscess may be developing more inferiorly than the main collection measuring 4.0 x 1.4 cm (image 110 series 2). BLADDER: Unremarkable. No mass. REPRODUCTIVE ORGANS: Unremarkable. VISUALIZED BOWEL: Unremarkable. PERITONEUM: Unremarkable, as visualized. No free fluid. No free air. LYMPH NODES: Diminishing bilateral inguinal lymph nodes identified measuring 1.3 x 2.1 cm at the right and 2.1 x 0.9 cm at the left. VASCULATURE: No aortic atherosclerotic calcification or mural plaque present. BONES: No fracture or focal lesion. OTHER FINDINGS: None. IMPRESSION: A stable small left buttocks subcutaneous abscess (4.0 x 1.2 cm) or phlegmon is unchanged in appearance although a new similar collection may be present or inferomedially at the left buttocks subcutaneous fat abutting the subdermal space measuring 4.0 x 1.4 cm. However, diminishing local reactive changes are seen in local subcutaneous fat as compared to prior CT 06/01/2018 no definitive perianal abscess appreciable at this time. No emphysematous soft tissue changes appreciable.
--- NOTE | 2018-06-11 15:30 | CP.PCM.CON ---
<Dominick Gerardo - Last Filed: 06/11/18 21:01> History of Present Illness - History of Present Illness History of Present Illness: General Surgery Consult Note for Dr. Nunez Reason for consult: hidradenitis, left buttock phlegmon/collection 32 M with PMH of hidradenitis presents to [facility] for complaint of left buttock and perineal pain. Patient was seen and examined in the ED. Patient was recently admitted for hidradenitis flare with scrotal abscess. Patient had I&D with Dr. Savage and received IV abx. After 2 days of IV abx, patient was discharged. Patient states that after IV abx he flare cleared up and had been doing well since until a few days ago. Patient reports that he has had increased pain in left buttock and perineum. He denies any drainage. Admits to subjective fever. Patient had CT pelvis in ED which showed same collection as last time in left buttock as well as a possible new collection (see official report). Denies cp, SOB, abd pain, n/v/d, constipation, hematochezia, melena. PMH: hidraadenitis supportiva PSH: 5 procedures for H.S. ALL: Shellfish Review of Systems - Review of Systems All systems: reviewed and no additional remarkable complaints except (as per HPI) Past Patient History - Infectious Disease Hx of Infectious Diseases: None - Past Medical History & Family History Past Medical History?: Yes - Past Social History Smoking Status: Never Smoked - CARDIAC Hx Cardiac Disorders: No - PULMONARY Hx Respiratory Disorders: No - NEUROLOGICAL Hx Neurological Disorder: No - HEENT Hx HEENT Problems: No - RENAL Hx Chronic Kidney Disease: No - ENDOCRINE/METABOLIC Hx Endocrine Disorders: No - HEMATOLOGICAL/ONCOLOGICAL Hx Blood Disorders: No - INTEGUMENTARY Hx Dermatological Problems: Yes (Pt has hidradenitis suppurativa) Other/Comment: scrotol abscess one year ago; treatment included debridement of abscess - MUSCULOSKELETAL/RHEUMATOLOGICAL Hx Musculoskeletal Disorders: Yes Hx Falls: No Hx Fractures: Yes - GASTROINTESTINAL Hx Gastrointestinal Disorders: No - GENITOURINARY/GYNECOLOGICAL Hx Genitourinary Disorders: No - PSYCHIATRIC Hx Psychophysiologic Disorder: No Hx Substance Use: No - SURGICAL HISTORY Hx Surgeries: Yes Other/Comment: Scrotal debridement. Axillary debridement. Multiple I&Ds. Right hand surgery. Right ankle Surgery - ANESTHESIA Hx Anesthesia: Yes Hx Anesthesia Reactions: No Hx Malignant Hyperthermia: No Meds Allergies/Adverse Reactions: Allergies Allergy/AdvReac Type Severity Reaction Status Date / Time shellfish derived Allergy ITCHING Verified 04/27/18 21:48 Physical Exam - Constitutional Appears: No Acute Distress - Head Exam Head Exam: ATRAUMATIC, NORMOCEPHALIC - Eye Exam Eye Exam: EOMI, Normal appearance Pupil Exam: PERRL - ENT Exam ENT Exam: Mucous Membranes Moist - Respiratory Exam Respiratory Exam: NORMAL BREATHING PATTERN - Cardiovascular Exam Cardiovascular Exam: REGULAR RHYTHM - GI/Abdominal Exam GI & Abdominal Exam: Normal Bowel Sounds, Soft. absent: Distended, Guarding, Tenderness - Rectal Exam Additional comments: normal tone, smooth ely, no fluctuance left buttock with chronic wound, no drainage, induration, no fluctance noted, TTP Perineum TTP - Extremities Exam Extremities exam: Positive for: normal capillary refill, pedal pulses present. Negative for: calf tenderness - Back Exam Back exam: absent: CVA tenderness (L), CVA tenderness (R) - Neurological Exam Neurological exam: Alert, CN II-XII Intact, Oriented x3 - Psychiatric Exam Psychiatric exam: Normal Affect, Normal Mood - Skin Skin Exam: Dry, Warm Results - Vital Signs Recent Vital Signs: Last Vital Signs Temp 98.8 F 06/11/18 11:29 Pulse 88 06/11/18 11:29 Resp 19 06/11/18 11:29 BP 130/72 06/11/18 11:29 Pulse Ox 100 06/11/18 11:29 - Labs Result Diagrams: 06/11/18 12:40 06/11/18 12:40 Labs: Laboratory Results - last 24 hr 06/11/18 06/11/18 06/11/18 12:40 12:40 13:25 WBC 11.8 H RBC 4.37 L Hgb 11.9 L Hct 36.2 MCV 82.9 MCH 27.2 MCHC 32.9 L RDW 16.0 H Plt Count 336 MPV 9.2 Neut % (Auto) 75.0 Lymph % (Auto) 16.4 L [place] % (Auto) 6.4 Eos % (Auto) 1.6 Baso % (Auto) 0.6 Neut # (Auto) 8.9 H Lymph # (Auto) 1.9 [place] # (Auto) 0.8 Eos # (Auto) 0.2 Baso # (Auto) 0.1 Sodium 139 Potassium 4.2 Chloride 106 Carbon Dioxide 24 Anion Gap 13 BUN 12 Creatinine 0.7 L Est GFR ( Amer) > 60 Est GFR (Non-Af Amer) > 60 Random Glucose 107 Calcium 9.3 Total Bilirubin 0.3 AST 20 ALT 30 Alkaline Phosphatase 72 Total Protein 8.0 Albumin 4.0 Globulin 4.0 H Albumin/Globulin Ratio 1.0 Urine Color Straw Urine Clarity Clear Urine pH 8.0 Ur Specific [place] 1.011 Urine Protein Negative Urine Glucose (UA) Neg Urine Ketones Negative Urine Blood Negative Urine Nitrate Negative Urine Bilirubin Negative Urine Urobilinogen 0.2-1.0 Ur Leukocyte Esterase Neg Urine RBC (Auto) 1 Urine Microscopic WBC 1 Assessment & Plan - Assessment and Plan (Free Text) Assessment: 32M with hidradenitis presents with left buttock pain, chronic left buttock phlegmon collection and possible new left buttock collection Plan: -Regular diet -IVF -IV abx -Pain control -Monitor for fevers -Trend WBC -Medical management as per primary -Discussed with Dr. Maxx Gerardo PGY2 - Date & Time Date: 06/11/18 Time: 16:10 <Deep Lilly - Last Filed: 06/11/18 23:21> Meds - Medications Medications: Current Medications Lactated Ringer's (Lactated Ringer's) 1,000 mls @ 135 mls/hr IV .Q7H25M [facility] Last Admin: 06/11/18 16:08 Dose: 135 mls/hr Vancomycin HCl 1 gm/ Sodium (Chloride) 250 mls @ 166.667 mls/hr IVPB Q12H [facility]; Protocol Last Admin: 06/11/18 16:07 Dose: 166.667 mls/hr Piperacillin Sod/Tazobactam (Sod 3.375 gm/ Sodium Chloride) 100 mls @ 100 mls/hr IVPB Q6 [facility]; Protocol Last Admin: 06/11/18 23:02 Dose: 100 mls/hr Morphine Sulfate (Morphine) 2 mg IVP Q4 PRN PRN Reason: Pain, severe (8-10) Last Admin: 06/11/18 21:11 Dose: 2 mg Ondansetron HCl (Zofran Inj) 4 mg IVP Q6 PRN PRN Reason: Nausea/Vomiting Results - Vital Signs Recent Vital Signs: Last Vital Signs Temp 99.5 F 06/11/18 22:06 Pulse 79 06/11/18 22:06 Resp 18 06/11/18 22:06 BP 135/75 06/11/18 22:06 Pulse Ox 100 06/11/18 21:49 - Labs Result Diagrams: 06/11/18 12:40 06/11/18 12:40 Labs: Laboratory Results - last 24 hr 06/11/18 06/11/18 06/11/18 12:40 12:40 13:25 WBC 11.8 H RBC 4.37 L Hgb 11.9 L Hct 36.2 MCV 82.9 MCH 27.2 MCHC 32.9 L RDW 16.0 H Plt Count 336 MPV 9.2 Neut % (Auto) 75.0 Lymph % (Auto) 16.4 L [place] % (Auto) 6.4 Eos % (Auto) 1.6 Baso % (Auto) 0.6 Neut # (Auto) 8.9 H Lymph # (Auto) 1.9 [place] # (Auto) 0.8 Eos # (Auto) 0.2 Baso # (Auto) 0.1 Sodium 139 Potassium 4.2 Chloride 106 Carbon Dioxide 24 Anion Gap 13 BUN 12 Creatinine 0.7 L Est GFR ( Amer) > 60 Est GFR (Non-Af Amer) > 60 Random Glucose 107 Calcium 9.3 Total Bilirubin 0.3 AST 20 ALT 30 Alkaline Phosphatase 72 Total Protein 8.0 Albumin 4.0 Globulin 4.0 H Albumin/Globulin Ratio 1.0 Urine Color Straw Urine Clarity Clear Urine pH 8.0 Ur Specific [place] 1.011 Urine Protein Negative Urine Glucose (UA) Neg Urine Ketones Negative Urine Blood Negative Urine Nitrate Negative Urine Bilirubin Negative Urine Urobilinogen 0.2-1.0 Ur Leukocyte Esterase Neg Urine RBC (Auto) 1 Urine Microscopic WBC 1 Assessment & Plan - Assessment and Plan (Free Text) Plan: 32yo M Hx of Hidradenitis presents to ED with left gluteal pain. Pt previously admitted to hospital and treated with IV abx for similar complaints. gen: awake, alert, NAD abd:soft, NT, ND left gluteal area: +induration and tenderness, no fluctuance, chronic draining sinus inferiorly 32yo M with Hx of hidradenitis now with left gluteal pain -CT scan review - no gross drainable collection -recommend IV abx -warm compresses -will continue to monitor
[2018-06-11] MEDS ORDERED: Vancomycin 1 g Inj ONE (16:07)
[2018-06-11] MEDS: Piperacillin/Tazobact 3.375 GM in Sodium Chloride 0.9% 100 ML IVPB SCH ×2 (16:07→23:02)
[2018-06-11] MEDS: Lactated Ringer's 1,000 ML IV SCH (16:08)
--- NOTE | 2018-06-11 19:17 | ED PDOC ---
HPI: General Adult Time Seen by Provider: 06/11/18 11:26 Chief Complaint (Nursing): Abnormal Skin Integrity Chief Complaint (Provider): Abscess, chronic History Per: Patient History/Exam Limitations: no limitations Onset/Duration Of Symptoms: Days (several ), Gradual, Persistent Current Symptoms Are (Timing): Still Present (Pt presents to the ED after d/c from [facility] floor several days prior with dx of hidranhydritis; Pt complains of continuing pain and ripening of abscesses in the left glutteal region. Pt denies fever, nausea vomiting and diarhhea) Past Medical History Reviewed: Historical Data, Nursing Documentation, Vital Signs Vital Signs: Last Vital Signs Temp 98.8 F 06/11/18 11:29 Pulse 88 06/11/18 11:29 Resp 19 06/11/18 11:29 BP 130/72 06/11/18 11:29 Pulse Ox 100 06/11/18 11:29 - Medical History PMH: Fractures Denies: Chronic Kidney Disease - Family History Family History: States: Unknown Family Hx - Home Medications Home Medications: Ambulatory Orders Medication Instructions Recorded Ibuprofen [Motrin Tab] 600 mg PO Q8 PRN 06/11/18 - Allergies Allergies/Adverse Reactions: Allergies Allergy/AdvReac Type Severity Reaction Status Date / Time shellfish derived Allergy ITCHING Verified 04/27/18 21:48 Review of Systems ROS Statement: Except As Marked, All Systems Reviewed And Found Negative Skin: Positive for: Other (abcess) Physical Exam - Reviewed Nursing Documentation Reviewed: Yes Vital Signs Reviewed: Yes - Physical Exam Appears: Positive for: Well, Non-toxic, No Acute Distress, Uncomfortable Head Exam: Positive for: ATRAUMATIC, NORMAL INSPECTION Skin: Positive for: Normal Color, Warm, Dry, Pallor (Pt has visible abscesses from glutteus through shellie to the scrotum) Eye Exam: Positive for: Normal appearance. Negative for: Periorbital swelling, Periorbital tenderness Neck: Positive for: Normal, Painless ROM, Supple Cardiovascular/Chest: Positive for: Regular Rate, Rhythm Respiratory: Positive for: Normal Breath Sounds Pulses-Carotid (L): 2+ Pulses-Carotid (R): 2+ Pulses-Radial (L): 2+ Pulses-Radial (R): 2+ - Laboratory Results Result Diagrams: 06/11/18 12:40 06/11/18 12:40 Lab Results: Total Bilirubin 0.3 mg/dl (0.2-1.3) 06/11/18 12:40 AST 20 U/L (17-59) 06/11/18 12:40 ALT 30 U/L (21-72) 06/11/18 12:40 Alkaline Phosphatase 72 U/L (38-126) 06/11/18 12:40 Total Protein 8.0 G/DL (6.3-8.2) 06/11/18 12:40 Albumin 4.0 g/dL (3.5-5.0) 06/11/18 12:40 Globulin 4.0 gm/dL (2.2-3.9) H 06/11/18 12:40 Albumin/Globulin Ratio 1.0 (1.0-2.1) 06/11/18 12:40 Urine Color Straw (YELLOW) 06/11/18 13:25 Urine Clarity Clear (Clear) 06/11/18 13:25 Urine pH 8.0 (5.0-8.0) 06/11/18 13:25 Ur Specific [place] 1.011 (1.003-1.030) 06/11/18 13:25 Urine Protein Negative mg/dL (NEGATIVE) 06/11/18 13:25 Urine Glucose (UA) Neg mg/dL (NEGATIVE) 06/11/18 13:25 Urine Ketones Negative mg/dL (NEGATIVE) 06/11/18 13:25 Urine Blood Negative (NEGATIVE) 06/11/18 13:25 Urine Nitrate Negative (NEGATIVE) 06/11/18 13:25 Urine Bilirubin Negative (NEGATIVE) 06/11/18 13:25 Urine Urobilinogen 0.2-1.0 mg/dL (0.2-1.0) 06/11/18 13:25 Ur Leukocyte Esterase Neg Faby/uL (Negative) 06/11/18 13:25 Urine RBC (Auto) 1 /hpf (0-3) 06/11/18 13:25 Urine Microscopic WBC 1 /hpf (0-5) 06/11/18 13:25 - ECG O2 Sat by Pulse Oximetry: 100 Medical Decision Making Medical Decision Making: IV Antibiotics Surgical Consult Discussed case with Dr Manriquez and on Surgery advise, pt will be admitted for IV abx treatment Disposition - Clinical Impression Clinical Impression: Hidradenitis suppurativa - Patient ED Disposition Is Patient to be Admitted: Yes Doctor Will See Patient In The: Hospital Counseled Patient/Family Regarding: Diagnosis, Need For Followup - Disposition Disposition Time: 19:21 Condition: STABLE Instructions: Hidradenitis Suppurativa - Pt Status Changed To: Hospital Disposition Of: Inpatient - Admit Certification Admit to Inpatient:: After my assessment, the patient will require hospitalization for at least two midnights. This is because of the severity of symptoms shown, intensity of services needed, and/or the medical risk in this patient being treated as an outpatient.
[2018-06-12] MEDS: Lactated Ringer's 1,000 ML IV SCH (01:15)
[2018-06-12] MEDS: Piperacillin/Tazobact 3.375 GM in Sodium Chloride 0.9% 100 ML IVPB SCH ×2 (03:50→09:04)
[2018-06-12 07:35] LABS: BASO # 0.1 K/uL (0.0-0.2); BASO % 0.7 % (0.0-2.0); EOS # 0.2 K/uL (0.0-0.7); EOS % 2.1 % (0.0-4.0); HEMOGLOBIN 10.8 g/dL (12.0-18.0); LYMPH # 2.5 K/uL (1.0-4.3); LYMPH % 26.6 % (20.0-40.0); MEAN CELL VOLUME 82.4 fl (80.0-94.0); MEAN CORPUSCULAR HEMOGLOBIN 27.7 pg (27.0-31.0); MEAN CORPUSCULAR HGB CONC 33.6 g/dL (33.0-37.0); MONO # 0.8 K/uL (0.0-0.8); MONO % 8.2 % (0.0-10.0); NEUT # 5.9 K/uL (1.8-7.0); NEUT % 62.4 % (50.0-75.0); NRBC % 0.1 % (0.0-0.0); RBC 3.89 Mil/uL (4.40-5.90); RED CELL DISTRIBUTION WIDTH 16.2 % (11.5-14.5); WHITE BLOOD COUNT 9.5 K/uL (4.8-10.8)
[2018-06-12 07:49] LABS: BLOOD UREA NITROGEN 10 mg/dl (9-20); CALCIUM 8.2 mg/dL (8.4-10.2); GFR NON-AFRICAN AMERICAN > 60
[2018-06-12] MEDS: Enoxaparin 40 mg Syringe SC SCH ×2 (09:03→09:06)
--- NOTE | 2018-06-12 10:35 | CP.PCM.PN ---
<Piedad Snyder - Last Filed: 06/12/18 10:35> Subjective - Date & Time of Evaluation Date of Evaluation: 06/12/18 Time of Evaluation: 07:00 - Subjective Subjective: GENERAL SURGERY PROGRESS NOTE FOR DR. KHOURY Patient seen and examined at bedside. Pt reports that the left gluteal wound began draining last night on its own. Reports some pain in the gluteal area. Objective - Vital Signs/Intake and Output Vital Signs (last 24 hours): Temp Pulse Resp BP Pulse Ox 97.6 F 73 20 102/66 99 06/12/18 08:46 06/12/18 08:46 06/12/18 08:46 06/12/18 08:46 06/12/18 08:46 - Medications Medications: Current Medications Enoxaparin Sodium (Lovenox) 40 mg SC DAILY [facility]; Protocol Last Admin: 06/12/18 09:06 Dose: Not Given Lactated Ringer's (Lactated Ringer's) 1,000 mls @ 135 mls/hr IV .Q7H25M [facility] Last Admin: 06/12/18 01:15 Dose: Not Given Vancomycin HCl 1 gm/ Sodium (Chloride) 250 mls @ 166.667 mls/hr IVPB Q12H [facility]; Protocol Last Admin: 06/12/18 04:59 Dose: 166.667 mls/hr Piperacillin Sod/Tazobactam (Sod 3.375 gm/ Sodium Chloride) 100 mls @ 100 mls/hr IVPB Q6 [facility]; Protocol Last Admin: 06/12/18 09:04 Dose: 100 mls/hr Morphine Sulfate (Morphine) 2 mg IVP Q4 PRN PRN Reason: Pain, severe (8-10) Last Admin: 06/12/18 09:57 Dose: 2 mg Ondansetron HCl (Zofran Inj) 4 mg IVP Q6 PRN PRN Reason: Nausea/Vomiting - Labs Labs: 06/12/18 06:55 06/12/18 06:55 - Constitutional Appears: Well, Non-toxic, No Acute Distress - Head Exam Head Exam: ATRAUMATIC, NORMAL INSPECTION - Respiratory Exam Respiratory Exam: NORMAL BREATHING PATTERN. absent: Respiratory Distress - Cardiovascular Exam Cardiovascular Exam: +S1, +S2 - GI/Abdominal Exam GI & Abdominal Exam: absent: Firm - Skin Additional comments: Left buttock area with some induration, no fluctuance, tender to palpation, small 0.5cm opening with slow ooze present Assessment and Plan - Assessment and Plan (Free Text) Assessment: 32M with hidradenitis presents with left buttock pain, chronic left buttock phlegmon collection and possible new left buttock collection Plan: - Continue diet - IV abx - Pain control - Warm compresses to area - Medical management as per primary - Discussed with Dr. Maxx Snyder PGY-4 <Deep Khoury - Last Filed: 06/12/18 12:22> Objective - Vital Signs/Intake and Output Vital Signs (last 24 hours): Temp Pulse Resp BP Pulse Ox 97.6 F 73 20 102/66 99 06/12/18 08:46 06/12/18 08:46 06/12/18 08:46 06/12/18 08:46 06/12/18 08:46 - Medications Medications: Current Medications Enoxaparin Sodium (Lovenox) 40 mg SC DAILY [facility]; Protocol Last Admin: 06/12/18 09:06 Dose: Not Given Lactated Ringer's (Lactated Ringer's) 1,000 mls @ 135 mls/hr IV .Q7H25M [facility] Last Admin: 06/12/18 01:15 Dose: Not Given Vancomycin HCl 1 gm/ Sodium (Chloride) 250 mls @ 166.667 mls/hr IVPB Q12H [facility]; Protocol Last Admin: 06/12/18 04:59 Dose: 166.667 mls/hr Piperacillin Sod/Tazobactam (Sod 3.375 gm/ Sodium Chloride) 100 mls @ 100 mls/hr IVPB Q6 [facility]; Protocol Last Admin: 06/12/18 09:04 Dose: 100 mls/hr Morphine Sulfate (Morphine) 2 mg IVP Q4 PRN PRN Reason: Pain, severe (8-10) Last Admin: 06/12/18 09:57 Dose: 2 mg Ondansetron HCl (Zofran Inj) 4 mg IVP Q6 PRN PRN Reason: Nausea/Vomiting - Labs Labs: 06/12/18 06:55 06/12/18 06:55 Assessment and Plan - Assessment and Plan (Free Text) Plan: pt reports improved pain to left gluteal area, minimal drainage from sinus track. gen: awake, alert, NAD resp: no acute respiratory distress abd: soft, NT,ND left gluteal area: +induration, improved induration and discomfort, minimal drainage -cont abx -warm compresses -no acute intervention
--- NOTE | 2018-06-12 12:24 | CP.PCM.HP ---
History of Present Illness - History of Present Illness History of Present Illness: 32 YR OLD MALE ADMITTED VIA THE ER BECAUSE OF INFECTED DRAINING CELLULITIS OF GLUTEAL AND GROIN AREAS WITH HIDRADENITIS.HE WAS RECENTLY D/LUL HOME AFTER APPROPRIATE THERAPY AND SURGICAL DRAINAGE OF GROIN ABSCESS ONLY TO RETURN BECAUSE OF WORSENING OF SYMPTOMS HX OF HIDRADENITIS Present on Admission - Present on Admission Any Indicators Present on Admission: No Past Patient History - Infectious Disease Hx of Infectious Diseases: None - Past Medical History & Family History Past Medical History?: Yes - Past Social History Smoking Status: Never Smoked - CARDIAC Hx Cardiac Disorders: No - PULMONARY Hx Respiratory Disorders: No - NEUROLOGICAL Hx Neurological Disorder: No - HEENT Hx HEENT Problems: No - RENAL Hx Chronic Kidney Disease: No - ENDOCRINE/METABOLIC Hx Endocrine Disorders: No - HEMATOLOGICAL/ONCOLOGICAL Hx AIDS: No Hx Human Immunodeficiency Virus (HIV): No - INTEGUMENTARY Hx Dermatological Problems: Yes (Pt has hidradenitis suppurativa) - MUSCULOSKELETAL/RHEUMATOLOGICAL Hx Falls: No - GASTROINTESTINAL Hx Gastrointestinal Disorders: No - GENITOURINARY/GYNECOLOGICAL Hx Genitourinary Disorders: No - PSYCHIATRIC Hx Substance Use: No - SURGICAL HISTORY Hx Surgeries: Yes Other/Comment: Scrotal debridement. Axillary debridement. Multiple I&Ds. Rig ht hand surgery. Right ankle Surgery - ANESTHESIA Hx Anesthesia: Yes Hx Anesthesia Reactions: No Hx Malignant Hyperthermia: No Meds Allergies/Adverse Reactions: Allergies Allergy/AdvReac Type Severity Reaction Status Date / Time shellfish derived Allergy ITCHING Verified 04/27/18 21:48 Physical Exam - Constitutional Appears: In Acute Distress - Head Exam Head Exam: ATRAUMATIC, NORMAL INSPECTION, NORMOCEPHALIC - Eye Exam Eye Exam: EOMI, Normal appearance, PERRL Pupil Exam: NORMAL ACCOMODATION, PERRL - ENT Exam ENT Exam: Mucous Membranes Moist, Normal Exam - Neck Exam Neck exam: Positive for: Normal Inspection - Respiratory Exam Respiratory Exam: Clear to Auscultation Bilateral, NORMAL BREATHING PATTERN - Cardiovascular Exam Cardiovascular Exam: REGULAR RHYTHM - GI/Abdominal Exam GI & Abdominal Exam: Normal Bowel Sounds, Soft. absent: Tenderness - Rectal Exam Additional comments: ABCESS WITH SKIN INDURATION AND DRAINAGE - Exam Exam: Circumcision, Scrotal Swelling - Extremities Exam Extremities exam: Positive for: normal inspection - Back Exam Back exam: NORMAL INSPECTION - Neurological Exam Neurological exam: Alert, CN II-XII Intact, Normal Gait, Oriented x3, Reflexes Normal - Psychiatric Exam Psychiatric exam: Normal Affect, Normal Mood - Skin Skin Exam: Dry, Intact, Normal Color, Warm Results - Vital Signs Recent Vital Signs: Last Vital Signs Temp 97.6 F 06/12/18 08:46 Pulse 73 06/12/18 08:46 Resp 20 06/12/18 08:46 BP 102/66 06/12/18 08:46 Pulse Ox 99 06/12/18 08:46 - Labs Result Diagrams: 06/12/18 06:55 06/12/18 06:55 Labs: Laboratory Results - last 24 hr 06/11/18 06/11/18 06/11/18 12:40 12:40 13:25 WBC 11.8 H RBC 4.37 L Hgb 11.9 L Hct 36.2 MCV 82.9 MCH 27.2 MCHC 32.9 L RDW 16.0 H Plt Count 336 MPV 9.2 Neut % (Auto) 75.0 Lymph % (Auto) 16.4 L [place] % (Auto) 6.4 Eos % (Auto) 1.6 Baso % (Auto) 0.6 Neut # (Auto) 8.9 H Lymph # (Auto) 1.9 [place] # (Auto) 0.8 Eos # (Auto) 0.2 Baso # (Auto) 0.1 Sodium 139 Potassium 4.2 Chloride 106 Carbon Dioxide 24 Anion Gap 13 BUN 12 Creatinine 0.7 L Est GFR ( Amer) > 60 Est GFR (Non-Af Amer) > 60 Random Glucose 107 Calcium 9.3 Total Bilirubin 0.3 AST 20 ALT 30 Alkaline Phosphatase 72 Total Protein 8.0 Albumin 4.0 Globulin 4.0 H Albumin/Globulin Ratio 1.0 Urine Color Straw Urine Clarity Clear Urine pH 8.0 Ur Specific [place] 1.011 Urine Protein Negative Urine Glucose (UA) Neg Urine Ketones Negative Urine Blood Negative Urine Nitrate Negative Urine Bilirubin Negative Urine Urobilinogen 0.2-1.0 Ur Leukocyte Esterase Neg Urine RBC (Auto) 1 Urine Microscopic WBC 1 06/12/18 06/12/18 06:55 06:55 WBC 9.5 RBC 3.89 L Hgb 10.8 L Hct 32.1 L MCV 82.4 MCH 27.7 MCHC 33.6 RDW 16.2 H Plt Count 258 MPV 9.0 Neut % (Auto) 62.4 Lymph % (Auto) 26.6 [place] % (Auto) 8.2 Eos % (Auto) 2.1 Baso % (Auto) 0.7 Neut # (Auto) 5.9 Lymph # (Auto) 2.5 [place] # (Auto) 0.8 Eos # (Auto) 0.2 Baso # (Auto) 0.1 Sodium 139 Potassium 3.9 Chloride 109 H Carbon Dioxide 22 Anion Gap 12 BUN 10 Creatinine 0.9 Est GFR ( Amer) > 60 Est GFR (Non-Af Amer) > 60 Random Glucose 102 Calcium 8.2 L Total Bilirubin AST ALT Alkaline Phosphatase Total Protein Albumin Globulin Albumin/Globulin Ratio Urine Color Urine Clarity Urine pH Ur Specific [place] Urine Protein Urine Glucose (UA) Urine Ketones Urine Blood Urine Nitrate Urine Bilirubin Urine Urobilinogen Ur Leukocyte Esterase Urine RBC (Auto) Urine Microscopic WBC Assessment & Plan - Assessment and Plan (Free Text) Assessment: HIDRADENITIS SCROTAL/GROIN ABSCESS Plan: ANALGESICS FOR PAIN IV ANTIBIOTICS SURGICAL AND ID EVALUATION - Date & Time Date: 06/12/18 Time: 12:27
--- NOTE | 2018-06-12 16:15 | CP.PCM.PN ---
Subjective - Date & Time of Evaluation Date of Evaluation: 06/12/18 Time of Evaluation: 16:11 - Subjective Subjective: I D NOTE PATIENT EXAMINED ,HISTORY TAKEN EXTENSIVE HISTORY OF HIDROADENITIIS SUPPURATIVA HAS EVIDENCE IN BOTH [place]/INGUINAL AREA,SCROTUM. HAVE CHANGED ANTIBIOTIC TREATMENT(DAPTOMYCIN/MEROPENEM/FLAGYL CULTURES ORDERED FROM [facility] Objective - Vital Signs/Intake and Output Vital Signs (last 24 hours): Temp Pulse Resp BP Pulse Ox 97.6 F 73 20 102/66 99 06/12/18 08:46 06/12/18 08:46 06/12/18 08:46 06/12/18 08:46 06/12/18 08:46 - Medications Medications: Current Medications Enoxaparin Sodium (Lovenox) 40 mg SC DAILY [facility]; Protocol Last Admin: 06/12/18 09:06 Dose: Not Given Lactated Ringer's (Lactated Ringer's) 1,000 mls @ 135 mls/hr IV .Q7H25M [facility] Last Admin: 06/12/18 01:15 Dose: Not Given Daptomycin 560 mg/ Sodium (Chloride) 100 mls @ 100 mls/hr IV Q24H [facility]; Protocol Stop: 06/17/18 16:01 Meropenem 1 gm/ Sodium (Chloride) 100 mls @ 100 mls/hr IVPB Q8 [facility]; Protocol Metronidazole (Flagyl 500mg/100ml Ns) 500 mg IVPB Q8 [facility]; Protocol Morphine Sulfate (Morphine) 2 mg IVP Q4 PRN PRN Reason: Pain, severe (8-10) Last Admin: 06/12/18 14:10 Dose: 2 mg Ondansetron HCl (Zofran Inj) 4 mg IVP Q6 PRN PRN Reason: Nausea/Vomiting - Labs Labs: 06/12/18 06:55 06/12/18 06:55
[2018-06-12] MEDS ORDERED: metroNIDAZOLE 500mg/100ml NS IVPB SCH (17:00)
[2018-06-12] MEDS: Meropenem 1 GM in Sodium Chloride 0.9% 100 ML IVPB SCH (18:05)
[2018-06-12] MEDS: metroNIDAZOLE 500mg/100ml NS 100 ML IVPB SCH (18:06)
[2018-06-12] MEDS: Silver Sulfadiazine 1% Cream (20 gm) TOP SCH (20:00)
[2018-06-13] MEDS: Meropenem 1 GM in Sodium Chloride 0.9% 100 ML IVPB SCH ×3 (01:10→16:42)
--- NOTE | 2018-06-13 08:35 | CP.PCM.PN ---
<Shaquille Flores - Last Filed: 06/13/18 08:36> Subjective - Date & Time of Evaluation Date of Evaluation: 06/13/18 Time of Evaluation: 08:34 - Subjective Subjective: Patient seen and examined. No complaints. Continuous with spontaneous drainage. Reports feeling better. Objective - Vital Signs/Intake and Output Vital Signs (last 24 hours): Temp Pulse Resp BP Pulse Ox 97.8 F 76 20 118/75 97 06/13/18 07:52 06/13/18 07:52 06/13/18 07:52 06/13/18 07:52 06/13/18 07:52 - Medications Medications: Current Medications Enoxaparin Sodium (Lovenox) 40 mg SC DAILY PATTI; Protocol Last Admin: 06/12/18 09:06 Dose: Not Given Daptomycin 560 mg/ Sodium (Chloride) 100 mls @ 100 mls/hr IV Q24H PATTI; Protocol Stop: 06/17/18 17:01 Last Admin: 06/12/18 19:07 Dose: 100 mls/hr Meropenem 1 gm/ Sodium (Chloride) 100 mls @ 100 mls/hr IVPB Q8 PATTI; Protocol Last Admin: 06/13/18 01:10 Dose: 100 mls/hr Metronidazole (Flagyl 500mg/100ml Ns) 100 mls @ 100 mls/hr IVPB Q8 PATTI Last Admin: 06/13/18 00:00 Dose: 100 mls/hr Morphine Sulfate (Morphine) 2 mg IVP Q4 PRN PRN Reason: Pain, severe (8-10) Last Admin: 06/13/18 06:27 Dose: 2 mg Ondansetron HCl (Zofran Inj) 4 mg IVP Q6 PRN PRN Reason: Nausea/Vomiting Silver Sulfadiazine (Silvadene 1% 20 Gm) 1 ea TOP BID PATTI Last Admin: 06/12/18 20:00 Dose: 1 ea - Labs Labs: 06/12/18 06:55 06/12/18 06:55 Assessment and Plan - Assessment and Plan (Free Text) Assessment: 32M with hidradenitis presents with left buttock pain, chronic left buttock phlegmon collection and possible new left buttock collection Plan: -cont abx -C/w warm compresses -no acute intervention at this present time D/w Dr. Maxx Quinn PGY3 <Deep Lilly - Last Filed: 06/13/18 18:23> Objective - Vital Signs/Intake and Output Vital Signs (last 24 hours): Temp Pulse Resp BP Pulse Ox 98.5 F 65 18 130/82 95 06/13/18 16:07 06/13/18 16:07 06/13/18 16:07 06/13/18 16:07 06/13/18 16:07 - Medications Medications: Current Medications Enoxaparin Sodium (Lovenox) 40 mg SC DAILY PATTI; Protocol Last Admin: 06/13/18 09:24 Dose: Not Given Daptomycin 560 mg/ Sodium (Chloride) 100 mls @ 100 mls/hr IV Q24H PATTI; Protocol Stop: 06/17/18 17:01 Last Admin: 06/13/18 16:36 Dose: 100 mls/hr Meropenem 1 gm/ Sodium (Chloride) 100 mls @ 100 mls/hr IVPB Q8 PATTI; Protocol Last Admin: 06/13/18 16:42 Dose: 100 mls/hr Metronidazole (Flagyl 500mg/100ml Ns) 100 mls @ 100 mls/hr IVPB Q8 PATTI Last Admin: 06/13/18 16:36 Dose: 100 mls/hr Morphine Sulfate (Morphine) 2 mg IVP Q4 PRN PRN Reason: Pain, severe (8-10) Last Admin: 06/13/18 18:01 Dose: 2 mg Ondansetron HCl (Zofran Inj) 4 mg IVP Q6 PRN PRN Reason: Nausea/Vomiting Silver Sulfadiazine (Silvadene 1% 20 Gm) 1 ea TOP Q12H PATTI - Labs Labs: 06/12/18 06:55 06/12/18 06:55 Assessment and Plan - Assessment and Plan (Free Text) Plan: pt seen at bedside, left gluteal pain improving but reports intermittent drainage. Pt remains afebrile. gen: awake, alert, NAD abd: soft, NT, ND left gluteal induration, minimal tenderness, minimal purulent drainage -cont IV abx warm compresses
[2018-06-13] MEDS: Enoxaparin 40 mg Syringe SC SCH (09:24)
[2018-06-13] MEDS: Silver Sulfadiazine 1% Cream (20 gm) TOP SCH ×3 (09:25→21:35)
[2018-06-13] MEDS: metroNIDAZOLE 500mg/100ml NS 100 ML IVPB SCH ×3 (09:25→16:36)
--- NOTE | 2018-06-13 11:24 | CP.PCM.PN ---
Subjective - Date & Time of Evaluation Date of Evaluation: 06/13/18 Time of Evaluation: 11:25 - Subjective Subjective: STILL HAS PAIN IN MULTIPLE SITES DRAINAGE OF HYDROADENITIS NOTED IN MULTIPLE SITES AFEBRILE Objective - Vital Signs/Intake and Output Vital Signs (last 24 hours): Temp Pulse Resp BP Pulse Ox 97.8 F 76 20 118/75 97 06/13/18 07:52 06/13/18 07:52 06/13/18 07:52 06/13/18 07:52 06/13/18 07:52 - Medications Medications: Current Medications Enoxaparin Sodium (Lovenox) 40 mg SC DAILY PATTI; Protocol Last Admin: 06/13/18 09:24 Dose: Not Given Daptomycin 560 mg/ Sodium (Chloride) 100 mls @ 100 mls/hr IV Q24H PATTI; Protocol Stop: 06/17/18 17:01 Last Admin: 06/12/18 19:07 Dose: 100 mls/hr Meropenem 1 gm/ Sodium (Chloride) 100 mls @ 100 mls/hr IVPB Q8 PATTI; Protocol Last Admin: 06/13/18 09:24 Dose: 100 mls/hr Metronidazole (Flagyl 500mg/100ml Ns) 100 mls @ 100 mls/hr IVPB Q8 PATTI Last Admin: 06/13/18 09:25 Dose: 100 mls/hr Morphine Sulfate (Morphine) 2 mg IVP Q4 PRN PRN Reason: Pain, severe (8-10) Last Admin: 06/13/18 10:05 Dose: 2 mg Ondansetron HCl (Zofran Inj) 4 mg IVP Q6 PRN PRN Reason: Nausea/Vomiting Silver Sulfadiazine (Silvadene 1% 20 Gm) 1 ea TOP BID PATTI Last Admin: 06/13/18 09:25 Dose: 1 ea - Labs Labs: 06/12/18 06:55 06/12/18 06:55 - Constitutional Appears: In Acute Distress - Head Exam Head Exam: ATRAUMATIC, NORMAL INSPECTION, NORMOCEPHALIC - Eye Exam Eye Exam: EOMI, Normal appearance, PERRL Pupil Exam: NORMAL ACCOMODATION, PERRL - ENT Exam ENT Exam: Mucous Membranes Moist, Normal Exam - Neck Exam Neck Exam: Full ROM, Normal Inspection. absent: Lymphadenopathy - Respiratory Exam Respiratory Exam: Clear to Ausculation Bilateral, NORMAL BREATHING PATTERN - Cardiovascular Exam Cardiovascular Exam: REGULAR RHYTHM, +S1, +S2. absent: Murmur - GI/Abdominal Exam GI & Abdominal Exam: Soft, Normal Bowel Sounds. absent: Tenderness - Rectal Exam Rectal Exam: NORMAL INSPECTION - Extremities Exam Extremities Exam: Full ROM, Normal Capillary Refill, Normal Inspection. absent: Joint Swelling, Pedal Edema - Back Exam Back Exam: NORMAL INSPECTION - Neurological Exam Neurological Exam: Alert, Awake, CN II-XII Intact, Normal Gait, Oriented x3 - Psychiatric Exam Psychiatric exam: Normal Affect, Normal Mood - Skin Skin Exam: Dry, Normal Color, Warm Additional comments: GROIN AND GLUTEAL ABSCESSES Assessment and Plan - Assessment and Plan (Free Text) Assessment: HYDROADENITIS MULTIPLE ABSCESSES Plan: ANALGESICS FOR PAIN CONTINUE IV ANTIBIOTICS PER ID REVIEW CULTURE RESULTS
[2018-06-13] MEDS ORDERED: Silver Sulfadiazine 1% Cream (20 gm) TOP SCH (16:45)
[2018-06-14] MEDS: Meropenem 1 GM in Sodium Chloride 0.9% 100 ML IVPB SCH ×3 (00:25→16:15)
[2018-06-14] MEDS: metroNIDAZOLE 500mg/100ml NS 100 ML IVPB SCH ×3 (00:26→16:15)
[2018-06-14] MEDS: Enoxaparin 40 mg Syringe SC SCH (08:21)
[2018-06-14] MEDS: Silver Sulfadiazine 1% Cream (20 gm) TOP SCH ×2 (08:21→20:34)
[2018-06-14] MEDS ORDERED: Oxycodone/Acetaminophen 5/325 mg Tab PO PRN (11:23)
--- NOTE | 2018-06-14 11:28 | CP.PCM.PN ---
Subjective - Date & Time of Evaluation Date of Evaluation: 06/14/18 Time of Evaluation: 11:30 - Subjective Subjective: STILL C/O PAIN AT MULTIPLE SITES REQUIRING MORPHINE RX Objective - Vital Signs/Intake and Output Vital Signs (last 24 hours): Temp Pulse Resp BP Pulse Ox 97.7 F 73 19 114/68 96 06/14/18 07:44 06/14/18 07:44 06/14/18 07:44 06/14/18 07:44 06/14/18 07:44 - Medications Medications: Current Medications Enoxaparin Sodium (Lovenox) 40 mg SC DAILY PATTI; Protocol Last Admin: 06/14/18 08:21 Dose: Not Given Daptomycin 560 mg/ Sodium (Chloride) 100 mls @ 100 mls/hr IV Q24H PATTI; Protocol Stop: 06/17/18 17:01 Last Admin: 06/13/18 16:36 Dose: 100 mls/hr Meropenem 1 gm/ Sodium (Chloride) 100 mls @ 100 mls/hr IVPB Q8 PATTI; Protocol Last Admin: 06/14/18 08:16 Dose: 100 mls/hr Metronidazole (Flagyl 500mg/100ml Ns) 100 mls @ 100 mls/hr IVPB Q8 PATTI Last Admin: 06/14/18 08:15 Dose: 100 mls/hr Morphine Sulfate (Morphine) 2 mg IVP Q4 PRN PRN Reason: Pain, severe (8-10) Last Admin: 06/14/18 09:55 Dose: 2 mg Ondansetron HCl (Zofran Inj) 4 mg IVP Q6 PRN PRN Reason: Nausea/Vomiting Oxycodone/Acetaminophen (Percocet 5/325 Mg Tab) 1 tab PO Q4 PRN PRN Reason: Pain, moderate (4-7) Stop: 06/17/18 11:24 Silver Sulfadiazine (Silvadene 1% 20 Gm) 1 ea TOP Q12H PATTI Last Admin: 06/14/18 08:21 Dose: 1 ea - Labs Labs: 06/12/18 06:55 06/12/18 06:55 - Constitutional Appears: In Acute Distress - Head Exam Head Exam: ATRAUMATIC, NORMAL INSPECTION, NORMOCEPHALIC - Eye Exam Eye Exam: EOMI, Normal appearance, PERRL Pupil Exam: NORMAL ACCOMODATION, PERRL - ENT Exam ENT Exam: Mucous Membranes Moist, Normal Exam - Neck Exam Neck Exam: Full ROM, Normal Inspection. absent: Lymphadenopathy - Respiratory Exam Respiratory Exam: Clear to Ausculation Bilateral, NORMAL BREATHING PATTERN - Cardiovascular Exam Cardiovascular Exam: REGULAR RHYTHM, +S1, +S2. absent: Murmur - GI/Abdominal Exam GI & Abdominal Exam: Soft, Normal Bowel Sounds. absent: Tenderness - Rectal Exam Rectal Exam: NORMAL INSPECTION - Extremities Exam Extremities Exam: Full ROM, Normal Capillary Refill, Normal Inspection. 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
--- NOTE | 2018-06-14 11:45 | CP.PCM.PN ---
<Piedad Snyder - Last Filed: 06/14/18 11:46> Subjective - Date & Time of Evaluation Date of Evaluation: 06/14/18 Time of Evaluation: 07:00 - Subjective Subjective: GENERAL SURGERY PROGRESS NOTE FOR DR. KHOURY Patient seen and examined at bedside. He reports that his pain has improved. Still having small amount of spontaneous drainage from buttock area. Pt reports that he has been using warm compresses. Objective - Vital Signs/Intake and Output Vital Signs (last 24 hours): Temp Pulse Resp BP Pulse Ox 97.7 F 73 19 114/68 96 06/14/18 07:44 06/14/18 07:44 06/14/18 07:44 06/14/18 07:44 06/14/18 07:44 - Medications Medications: Current Medications Enoxaparin Sodium (Lovenox) 40 mg SC DAILY PATTI; Protocol Last Admin: 06/14/18 08:21 Dose: Not Given Daptomycin 560 mg/ Sodium (Chloride) 100 mls @ 100 mls/hr IV Q24H PATTI; Protocol Stop: 06/17/18 17:01 Last Admin: 06/13/18 16:36 Dose: 100 mls/hr Meropenem 1 gm/ Sodium (Chloride) 100 mls @ 100 mls/hr IVPB Q8 PATTI; Protocol Last Admin: 06/14/18 08:16 Dose: 100 mls/hr Metronidazole (Flagyl 500mg/100ml Ns) 100 mls @ 100 mls/hr IVPB Q8 PATTI Last Admin: 06/14/18 08:15 Dose: 100 mls/hr Morphine Sulfate (Morphine) 2 mg IVP Q4 PRN PRN Reason: Pain, severe (8-10) Last Admin: 06/14/18 09:55 Dose: 2 mg Ondansetron HCl (Zofran Inj) 4 mg IVP Q6 PRN PRN Reason: Nausea/Vomiting Oxycodone/Acetaminophen (Percocet 5/325 Mg Tab) 1 tab PO Q4 PRN PRN Reason: Pain, moderate (4-7) Stop: 06/17/18 11:24 Silver Sulfadiazine (Silvadene 1% 20 Gm) 1 ea TOP Q12H PATTI Last Admin: 06/14/18 08:21 Dose: 1 ea - Labs Labs: 06/12/18 06:55 06/12/18 06:55 - Constitutional Appears: Non-toxic, No Acute Distress - Head Exam Head Exam: ATRAUMATIC, NORMAL INSPECTION - Eye Exam Eye Exam: EOMI, Normal appearance - Respiratory Exam Respiratory Exam: NORMAL BREATHING PATTERN. absent: Respiratory Distress - Cardiovascular Exam Cardiovascular Exam: +S1, +S2 - Neurological Exam Neurological Exam: Alert, Awake, Oriented x3 - Psychiatric Exam Psychiatric exam: Normal Affect, Normal Mood - Skin Additional comments: small amount of spontaneous purulent drainage from small opening in left buttock. No fluctuance. MIld induration. Mild tenderness Assessment and Plan - Assessment and Plan (Free Text) Assessment: 32M with hidradenitis Plan: - Continue Warm compresses to area - No acute surgical intervention necessary at this time. - Discussed with Dr. Maxx Snyder PGY-4 <Deep Khoury - Last Filed: 06/14/18 14:59> Objective - Vital Signs/Intake and Output Vital Signs (last 24 hours): Temp Pulse Resp BP Pulse Ox 97.7 F 73 19 114/68 96 06/14/18 07:44 06/14/18 07:44 06/14/18 07:44 06/14/18 07:44 06/14/18 07:44 - Medications Medications: Current Medications Enoxaparin Sodium (Lovenox) 40 mg SC DAILY PATTI; Protocol Last Admin: 06/14/18 08:21 Dose: Not Given Daptomycin 560 mg/ Sodium (Chloride) 100 mls @ 100 mls/hr IV Q24H PATTI; Protocol Stop: 06/17/18 17:01 Last Admin: 06/13/18 16:36 Dose: 100 mls/hr Meropenem 1 gm/ Sodium (Chloride) 100 mls @ 100 mls/hr IVPB Q8 PATTI; Protocol Last Admin: 06/14/18 08:16 Dose: 100 mls/hr Metronidazole (Flagyl 500mg/100ml Ns) 100 mls @ 100 mls/hr IVPB Q8 PATTI Last Admin: 06/14/18 08:15 Dose: 100 mls/hr Morphine Sulfate (Morphine) 2 mg IVP Q4 PRN PRN Reason: Pain, severe (8-10) Last Admin: 06/14/18 14:09 Dose: 2 mg Ondansetron HCl (Zofran Inj) 4 mg IVP Q6 PRN PRN Reason: Nausea/Vomiting Oxycodone/Acetaminophen (Percocet 5/325 Mg Tab) 1 tab PO Q4 PRN PRN Reason: Pain, moderate (4-7) Stop: 06/17/18 11:24 Silver Sulfadiazine (Silvadene 1% 20 Gm) 1 ea TOP Q12H PATTI Last Admin: 06/14/18 08:21 Dose: 1 ea - Labs Labs: 06/12/18 06:55 06/12/18 06:55 Assessment and Plan - Assessment and Plan (Free Text) Plan: seen at bedside, contineus to report left gluteal discomfort, exam: induration to left gluteal area, no active drainage, no fluctuance -cont abx -pt stable for dc
[2018-06-15] MEDS: metroNIDAZOLE 500mg/100ml NS 100 ML IVPB SCH ×3 (00:10→16:12)
[2018-06-15] MEDS: Meropenem 1 GM in Sodium Chloride 0.9% 100 ML IVPB SCH ×3 (01:12→16:12)
[2018-06-15] MEDS: Silver Sulfadiazine 1% Cream (20 gm) TOP SCH ×2 (08:35→20:32)
[2018-06-15] MEDS: Enoxaparin 40 mg Syringe SC SCH ×2 (08:35→08:41)
--- NOTE | 2018-06-15 09:32 | CP.PCM.PN ---
Subjective - Date & Time of Evaluation Date of Evaluation: 06/15/18 Time of Evaluation: 09:32 - Subjective Subjective: PAIN LESS AFEBRILE MULTIPLE SKIN ABSCESSES IMPROVING Objective - Vital Signs/Intake and Output Vital Signs (last 24 hours): Temp Pulse Resp BP Pulse Ox 97.7 F 69 20 115/79 99 06/15/18 07:54 06/15/18 07:54 06/15/18 07:54 06/15/18 07:54 06/15/18 07:54 - Medications Medications: Current Medications Enoxaparin Sodium (Lovenox) 40 mg SC DAILY PATTI; Protocol Last Admin: 06/15/18 08:41 Dose: Not Given Daptomycin 560 mg/ Sodium (Chloride) 100 mls @ 100 mls/hr IV Q24H PATTI; Protocol Stop: 06/17/18 17:01 Last Admin: 06/14/18 16:14 Dose: 100 mls/hr Meropenem 1 gm/ Sodium (Chloride) 100 mls @ 100 mls/hr IVPB Q8 PATTI; Protocol Last Admin: 06/15/18 08:35 Dose: 100 mls/hr Metronidazole (Flagyl 500mg/100ml Ns) 100 mls @ 100 mls/hr IVPB Q8 PATTI Last Admin: 06/15/18 08:34 Dose: 100 mls/hr Morphine Sulfate (Morphine) 2 mg IVP Q4 PRN PRN Reason: Pain, severe (8-10) Last Admin: 06/15/18 06:15 Dose: 2 mg Ondansetron HCl (Zofran Inj) 4 mg IVP Q6 PRN PRN Reason: Nausea/Vomiting Oxycodone/Acetaminophen (Percocet 5/325 Mg Tab) 1 tab PO Q4 PRN PRN Reason: Pain, moderate (4-7) Stop: 06/17/18 11:24 Silver Sulfadiazine (Silvadene 1% 20 Gm) 1 ea TOP Q12H PATTI Last Admin: 06/15/18 08:35 Dose: 1 ea - Labs Labs: 06/12/18 06:55 06/12/18 06:55 - Constitutional Appears: Chronically Ill - Head Exam Head Exam: ATRAUMATIC, NORMAL INSPECTION, NORMOCEPHALIC - Eye Exam Eye Exam: EOMI, Normal appearance, PERRL Pupil Exam: NORMAL ACCOMODATION, PERRL - ENT Exam ENT Exam: Mucous Membranes Moist, Normal Exam - Neck Exam Neck Exam: Full ROM, Normal Inspection. absent: Lymphadenopathy - Respiratory Exam Respiratory Exam: Clear to Ausculation Bilateral, NORMAL BREATHING PATTERN - Cardiovascular Exam Cardiovascular Exam: REGULAR RHYTHM, +S1, +S2. absent: Murmur - GI/Abdominal Exam GI & Abdominal Exam: Soft, Normal Bowel Sounds. absent: Tenderness - Rectal Exam Rectal Exam: NORMAL INSPECTION - Extremities Exam Extremities Exam: Full ROM, Normal Capillary Refill, Normal Inspection. absent: Joint Swelling, Pedal Edema - Back Exam Back Exam: NORMAL INSPECTION - Neurological Exam Neurological Exam: Alert, Awake, CN II-XII Intact, Normal Gait, Oriented x3 - Psychiatric Exam Psychiatric exam: Normal Affect, Normal Mood - Skin Skin Exam: Dry, Normal Color, Warm Additional comments: GLUTEAL,GROIN AND AXILLA ABSCESSES IMPROVING Assessment and Plan - Assessment and Plan (Free Text) Assessment: HYDROADENITIS--IMPROVING SKIN ABSCESSES Plan: CONTINUE CURRENT RX [employer] FOR D/C PLANNING WILL CHECK WITH ID ABOUT APPROPRIATE OUT PT ANTIBIOTIC RX
--- NOTE | 2018-06-15 16:08 | CP.PCM.PN ---
Subjective - Date & Time of Evaluation Date of Evaluation: 06/15/18 Time of Evaluation: 16:00 - Subjective Subjective: I D NOTE PATIENT EXAMINED AND SOME IMPROVEMENT NOTED I WOULD CONTINUE IV ANTIBIOTICS FOR AN EXTENDED PERIOD ESPECIALLY DAPTOMYCIN Objective - Vital Signs/Intake and Output Vital Signs (last 24 hours): Temp Pulse Resp BP Pulse Ox 97.7 F 69 20 115/79 99 06/15/18 07:54 06/15/18 07:54 06/15/18 07:54 06/15/18 07:54 06/15/18 07:54 - Medications Medications: Current Medications Enoxaparin Sodium (Lovenox) 40 mg SC DAILY PATTI; Protocol Last Admin: 06/15/18 08:41 Dose: Not Given Daptomycin 560 mg/ Sodium (Chloride) 100 mls @ 100 mls/hr IV Q24H PATTI; Protocol Stop: 06/17/18 17:01 Last Admin: 06/14/18 16:14 Dose: 100 mls/hr Meropenem 1 gm/ Sodium (Chloride) 100 mls @ 100 mls/hr IVPB Q8 PATTI; Protocol Last Admin: 06/15/18 08:35 Dose: 100 mls/hr Metronidazole (Flagyl 500mg/100ml Ns) 100 mls @ 100 mls/hr IVPB Q8 PATTI Last Admin: 06/15/18 08:34 Dose: 100 mls/hr Morphine Sulfate (Morphine) 2 mg IVP Q4 PRN PRN Reason: Pain, severe (8-10) Last Admin: 06/15/18 15:11 Dose: 2 mg Ondansetron HCl (Zofran Inj) 4 mg IVP Q6 PRN PRN Reason: Nausea/Vomiting Oxycodone/Acetaminophen (Percocet 5/325 Mg Tab) 1 tab PO Q4 PRN PRN Reason: Pain, moderate (4-7) Stop: 06/17/18 11:24 Silver Sulfadiazine (Silvadene 1% 20 Gm) 1 ea TOP Q12H PATTI Last Admin: 06/15/18 08:35 Dose: 1 ea - Labs Labs: 06/12/18 06:55 06/12/18 06:55
[2018-06-16] MEDS: metroNIDAZOLE 500mg/100ml NS 100 ML IVPB SCH ×3 (00:04→16:45)
[2018-06-16] MEDS: Meropenem 1 GM in Sodium Chloride 0.9% 100 ML IVPB SCH ×3 (01:22→16:43)
[2018-06-16] MEDS: Enoxaparin 40 mg Syringe SC SCH (08:32)
[2018-06-16] MEDS: Silver Sulfadiazine 1% Cream (20 gm) TOP SCH ×3 (08:32→20:34)
--- NOTE | 2018-06-16 09:27 | CP.PCM.PN ---
Subjective - Date & Time of Evaluation Date of Evaluation: 06/16/18 Time of Evaluation: 09:27 - Subjective Subjective: C/O PAIN IN MULTIPLE SITES STILL HAS MULTIPLE DRAINING ABSCESSES CASE DISCUSSED WITH ID--PT WILL NEED AT LEAST 1 MORE WEEK OF IV ANTIBIOTICS Objective - Vital Signs/Intake and Output Vital Signs (last 24 hours): Temp Pulse Resp BP Pulse Ox 97.7 F 69 20 129/87 98 06/16/18 08:51 06/16/18 08:51 06/16/18 08:51 06/16/18 08:51 06/16/18 08:51 - Medications Medications: Current Medications Enoxaparin Sodium (Lovenox) 40 mg SC DAILY PATTI; Protocol Last Admin: 06/16/18 08:32 Dose: Not Given Daptomycin 560 mg/ Sodium (Chloride) 100 mls @ 100 mls/hr IV Q24H PATTI; Protocol Stop: 06/17/18 17:01 Last Admin: 06/15/18 16:11 Dose: 100 mls/hr Meropenem 1 gm/ Sodium (Chloride) 100 mls @ 100 mls/hr IVPB Q8 PATTI; Protocol Last Admin: 06/16/18 08:32 Dose: 100 mls/hr Metronidazole (Flagyl 500mg/100ml Ns) 100 mls @ 100 mls/hr IVPB Q8 PATTI Last Admin: 06/16/18 08:32 Dose: 100 mls/hr Morphine Sulfate (Morphine) 2 mg IVP Q4 PRN PRN Reason: Pain, severe (8-10) Last Admin: 06/16/18 08:36 Dose: 2 mg Ondansetron HCl (Zofran Inj) 4 mg IVP Q6 PRN PRN Reason: Nausea/Vomiting Oxycodone/Acetaminophen (Percocet 5/325 Mg Tab) 1 tab PO Q4 PRN PRN Reason: Pain, moderate (4-7) Stop: 06/17/18 11:24 Silver Sulfadiazine (Silvadene 1% 20 Gm) 1 ea TOP Q12H PATTI Last Admin: 06/16/18 08:32 Dose: 1 ea - Labs Labs: 06/12/18 06:55 06/12/18 06:55 - Constitutional Appears: In Acute Distress, Chronically Ill - Head Exam Head Exam: ATRAUMATIC, NORMAL INSPECTION, NORMOCEPHALIC - Eye Exam Eye Exam: EOMI, Normal appearance, PERRL Pupil Exam: NORMAL ACCOMODATION, PERRL - ENT Exam ENT Exam: Mucous Membranes Moist, Normal Exam - Neck Exam Neck Exam: Full ROM, Normal Inspection. absent: Lymphadenopathy - Respiratory Exam Respiratory Exam: Clear to Ausculation Bilateral, NORMAL BREATHING PATTERN - Cardiovascular Exam Cardiovascular Exam: REGULAR RHYTHM, +S1, +S2. absent: Murmur - GI/Abdominal Exam GI & Abdominal Exam: Soft, Normal Bowel Sounds. absent: Tenderness - Rectal Exam Rectal Exam: NORMAL INSPECTION - Extremities Exam Extremities Exam: Full ROM, Normal Capillary Refill, Normal Inspection. absent: Joint Swelling, Pedal Edema - Back Exam Back Exam: NORMAL INSPECTION - Neurological Exam Neurological Exam: Alert, Awake, CN II-XII Intact, Normal Gait, Oriented x3 - Psychiatric Exam Psychiatric exam: Normal Affect, Normal Mood - Skin Skin Exam: Dry, Normal Color, Warm Additional comments: MULTI-ABSCESSES Assessment and Plan - Assessment and Plan (Free Text) Assessment: HYDROADENITIS MULTIABSCESSES Plan: BALANCER FOR TCU
[2018-06-16] MEDS: Oxycodone/Acetaminophen 5/325 mg Tab PO PRN (13:17)
[2018-06-17] MEDS: metroNIDAZOLE 500mg/100ml NS 100 ML IVPB SCH ×3 (00:02→18:19)
[2018-06-17] MEDS: Meropenem 1 GM in Sodium Chloride 0.9% 100 ML IVPB SCH ×3 (01:27→17:14)
[2018-06-17] MEDS: Silver Sulfadiazine 1% Cream (20 gm) TOP SCH ×2 (08:49→20:13)
[2018-06-17] MEDS: Enoxaparin 40 mg Syringe SC SCH (08:50)
--- NOTE | 2018-06-17 09:57 | CP.PCM.PN ---
Subjective - Date & Time of Evaluation Date of Evaluation: 06/17/18 Time of Evaluation: 10:01 - Subjective Subjective: HAS NEW ABSCESSES IN AXILLA ABLE TO AMBULATE WITH PT Objective - Vital Signs/Intake and Output Vital Signs (last 24 hours): Temp Pulse Resp BP Pulse Ox 97.5 F L 68 20 116/71 98 06/17/18 07:36 06/17/18 07:36 06/17/18 07:36 06/17/18 07:36 06/17/18 07:36 - Medications Medications: Current Medications Enoxaparin Sodium (Lovenox) 40 mg SC DAILY PATTI; Protocol Last Admin: 06/17/18 08:50 Dose: Not Given Daptomycin 560 mg/ Sodium (Chloride) 100 mls @ 100 mls/hr IV Q24H PATTI; Protocol Stop: 06/17/18 17:01 Last Admin: 06/16/18 18:14 Dose: 100 mls/hr Meropenem 1 gm/ Sodium (Chloride) 100 mls @ 100 mls/hr IVPB Q8 PATTI; Protocol Last Admin: 06/17/18 01:27 Dose: 100 mls/hr Metronidazole (Flagyl 500mg/100ml Ns) 100 mls @ 100 mls/hr IVPB Q8 PATTI Last Admin: 06/17/18 08:48 Dose: 100 mls/hr Morphine Sulfate (Morphine) 2 mg IVP Q4 PRN PRN Reason: Pain, severe (8-10) Last Admin: 06/17/18 09:43 Dose: 2 mg Ondansetron HCl (Zofran Inj) 4 mg IVP Q6 PRN PRN Reason: Nausea/Vomiting Oxycodone/Acetaminophen (Percocet 5/325 Mg Tab) 2 tab PO Q4 PRN PRN Reason: Pain, moderate (4-7) Stop: 06/19/18 09:29 Last Admin: 06/16/18 13:17 Dose: 2 tab Silver Sulfadiazine (Silvadene 1% 20 Gm) 1 ea TOP Q12H PATTI Last Admin: 06/17/18 08:49 Dose: 1 ea - Labs Labs: 06/12/18 06:55 06/12/18 06:55 - Constitutional Appears: Chronically Ill - Head Exam Head Exam: ATRAUMATIC, NORMAL INSPECTION, NORMOCEPHALIC - Eye Exam Eye Exam: EOMI, Normal appearance, PERRL Pupil Exam: NORMAL ACCOMODATION, PERRL - ENT Exam ENT Exam: Mucous Membranes Moist, Normal Exam - Neck Exam Neck Exam: Full ROM, Normal Inspection. absent: Lymphadenopathy - Respiratory Exam Respiratory Exam: Clear to Ausculation Bilateral, NORMAL BREATHING PATTERN - Cardiovascular Exam Cardiovascular Exam: REGULAR RHYTHM, +S1, +S2. absent: Murmur - GI/Abdominal Exam GI & Abdominal Exam: Soft, Normal Bowel Sounds. absent: Tenderness - Rectal Exam Rectal Exam: NORMAL INSPECTION - Extremities Exam Extremities Exam: Full ROM, Normal Capillary Refill, Normal Inspection. absent: Joint Swelling, Pedal Edema - Back Exam Back Exam: NORMAL INSPECTION - Neurological Exam Neurological Exam: Alert, Awake, CN II-XII Intact, Normal Gait, Oriented x3 - Psychiatric Exam Psychiatric exam: Normal Affect, Normal Mood - Skin Skin Exam: Dry, Normal Color, Warm Additional comments: AXILLA ABSCESSES AND GLUTEAL/GROIN AREAS Assessment and Plan - Assessment and Plan (Free Text) Assessment: HYDROADENITIS MULTI ABSCESSES Plan: CONTINUE IV ANTIBIOTICS SURGICAL RE-EVAL FOR DRAINAGE OF ABSCESSES
[2018-06-17] MEDS: Oxycodone/Acetaminophen 5/325 mg Tab PO PRN ×3 (11:39→23:58)
--- NOTE | 2018-06-17 11:52 | CP.PCM.PN ---
Subjective - Date & Time of Evaluation Date of Evaluation: 06/17/18 Time of Evaluation: 11:50 - Subjective Subjective: Surgery Progress note Patient seen and examined at bedside. States that groin has improved, however bilateral axilla pain has increased overnight. After examination, no active drainage at this time. Induration, no areas of fluctuate. Denies fevers, chills, chest pain, shortness of breath. + OOB and ambulating, tolerating diet. Objective - Vital Signs/Intake and Output Vital Signs (last 24 hours): Temp Pulse Resp BP Pulse Ox 97.5 F L 68 20 116/71 98 06/17/18 07:36 06/17/18 07:36 06/17/18 07:36 06/17/18 07:36 06/17/18 07:36 - Medications Medications: Current Medications Enoxaparin Sodium (Lovenox) 40 mg SC DAILY [facility]; Protocol Last Admin: 06/17/18 08:50 Dose: Not Given Daptomycin 560 mg/ Sodium (Chloride) 100 mls @ 100 mls/hr IV Q24H [facility]; Protocol Stop: 06/17/18 17:01 Last Admin: 06/16/18 18:14 Dose: 100 mls/hr Meropenem 1 gm/ Sodium (Chloride) 100 mls @ 100 mls/hr IVPB Q8 [facility]; Protocol Last Admin: 06/17/18 10:52 Dose: 100 mls/hr Metronidazole (Flagyl 500mg/100ml Ns) 100 mls @ 100 mls/hr IVPB Q8 [facility] Last Admin: 06/17/18 08:48 Dose: 100 mls/hr Morphine Sulfate (Morphine) 2 mg IVP Q4 PRN PRN Reason: Pain, severe (8-10) Last Admin: 06/17/18 09:43 Dose: 2 mg Ondansetron HCl (Zofran Inj) 4 mg IVP Q6 PRN PRN Reason: Nausea/Vomiting Oxycodone/Acetaminophen (Percocet 5/325 Mg Tab) 2 tab PO Q4 PRN PRN Reason: Pain, moderate (4-7) Stop: 06/19/18 09:29 Last Admin: 06/17/18 11:39 Dose: 2 tab Silver Sulfadiazine (Silvadene 1% 20 Gm) 1 ea TOP Q12H [facility] Last Admin: 06/17/18 08:49 Dose: 1 ea - Labs Labs: 06/12/18 06:55 06/12/18 06:55 - Constitutional Appears: Non-toxic, No Acute Distress - Head Exam Head Exam: ATRAUMATIC - Eye Exam Eye Exam: EOMI. absent: Scleral icterus - ENT Exam ENT Exam: Mucous Membranes Moist - Respiratory Exam Respiratory Exam: NORMAL BREATHING PATTERN. absent: Accessory Muscle Use, Respiratory Distress - Cardiovascular Exam Cardiovascular Exam: REGULAR RHYTHM. absent: Bradycardia, Tachycardia - GI/Abdominal Exam GI & Abdominal Exam: Soft. absent: Distended, Firm, Guarding, Rigid, Tenderness - Extremities Exam Additional comments: bilateral upper extremity induration measuring 4cm on left, 3cm on right. no active drainage. - Neurological Exam Neurological Exam: Alert, Awake, Oriented x3 - Skin Skin Exam: Intact, Normal Color Assessment and Plan - Assessment and Plan (Free Text) Assessment: 32M w/ hidradenitis Plan: warm compresses to the affected area continue w/ abx will monitor for dainage if area of fluctuate forms will consider doing drainage analgesia BENOITN PGY2
--- NOTE | 2018-06-17 14:31 | CP.PCM.CON ---
History of Present Illness - History of Present Illness History of Present Illness: 32yM with acute on chronic pain related to hydranetis suppurtiva and cellulitis. He has taken percocet from his PMD for chronic pain related to the abscesses he has developed over his skin. The abscess distribution is located mostly in the groin and armpits. He states his pain is VAS 3-4/10 intermittent sharp pain without radiation located on the skin over his abscesses. His pain is well controlled and he states he does not need more pain medicine. He denies weakness and urinary incontinence. Past Patient History - Infectious Disease Hx of Infectious Diseases: None - Past Medical History & Family History Past Medical History?: Yes - Past Social History Smoking Status: Never Smoked - CARDIAC Hx Cardiac Disorders: No - PULMONARY Hx Respiratory Disorders: No - NEUROLOGICAL Hx Neurological Disorder: No - HEENT Hx HEENT Problems: No - RENAL Hx Chronic Kidney Disease: No - ENDOCRINE/METABOLIC Hx Endocrine Disorders: No - HEMATOLOGICAL/ONCOLOGICAL Hx AIDS: No Hx Human Immunodeficiency Virus (HIV): No - INTEGUMENTARY Hx Dermatological Problems: Yes (Pt has hidradenitis suppurativa) - MUSCULOSKELETAL/RHEUMATOLOGICAL Hx Falls: No - GASTROINTESTINAL Hx Gastrointestinal Disorders: No - GENITOURINARY/GYNECOLOGICAL Hx Genitourinary Disorders: No - PSYCHIATRIC Hx Substance Use: No - SURGICAL HISTORY Hx Surgeries: Yes Other/Comment: Scrotal debridement. Axillary debridement. Multiple I&Ds. Right hand surgery. Right ankle Surgery - ANESTHESIA Hx Anesthesia: Yes Hx Anesthesia Reactions: No Hx Malignant Hyperthermia: No Meds Allergies/Adverse Reactions: Allergies Allergy/AdvReac Type Severity Reaction Status Date / Time shellfish derived Allergy ITCHING Verified 04/27/18 21:48 - Medications Medications: Current Medications Enoxaparin Sodium (Lovenox) 40 mg SC DAILY [facility]; Protocol Last Admin: 06/17/18 08:50 Dose: Not Given Daptomycin 560 mg/ Sodium (Chloride) 100 mls @ 100 mls/hr IV Q24H [facility]; Protocol Stop: 06/17/18 17:01 Last Admin: 06/16/18 18:14 Dose: 100 mls/hr Meropenem 1 gm/ Sodium (Chloride) 100 mls @ 100 mls/hr IVPB Q8 [facility]; Protocol Last Admin: 06/17/18 10:52 Dose: 100 mls/hr Metronidazole (Flagyl 500mg/100ml Ns) 100 mls @ 100 mls/hr IVPB Q8 [facility] Last Admin: 06/17/18 08:48 Dose: 100 mls/hr Morphine Sulfate (Morphine) 2 mg IVP Q4 PRN PRN Reason: Pain, severe (8-10) Last Admin: 06/17/18 13:57 Dose: 2 mg Ondansetron HCl (Zofran Inj) 4 mg IVP Q6 PRN PRN Reason: Nausea/Vomiting Oxycodone/Acetaminophen (Percocet 5/325 Mg Tab) 2 tab PO Q4 PRN PRN Reason: Pain, moderate (4-7) Stop: 06/19/18 09:29 Last Admin: 06/17/18 11:39 Dose: 2 tab Silver Sulfadiazine (Silvadene 1% 20 Gm) 1 ea TOP Q12H [facility] Last Admin: 06/17/18 08:49 Dose: 1 ea Physical Exam - Constitutional Appears: No Acute Distress - Neurological Exam Neurological exam: Normal Gait Additional comments: sensation grossly intact, MAEW - Skin Additional comments: mild to mod ttp over the areas of cellulitis in his armpits. Results - Vital Signs Recent Vital Signs: Last Vital Signs Temp 97.5 F L 06/17/18 07:36 Pulse 68 06/17/18 07:36 Resp 20 06/17/18 07:36 BP 116/71 06/17/18 07:36 Pulse Ox 98 06/17/18 07:36 - Labs Result Diagrams: 06/12/18 06:55 06/12/18 06:55 Assessment & Plan - Assessment and Plan (Free Text) Assessment: 32yM with chronic cellulitis c/o acute on chronic pain related to his cellulitis Plan: 1. PT 2. continue current rx for pain 3. care as per primary team
[2018-06-18] MEDS: metroNIDAZOLE 500mg/100ml NS 100 ML IVPB SCH ×3 (01:19→17:01)
[2018-06-18] MEDS: Oxycodone/Acetaminophen 5/325 mg Tab PO PRN ×5 (03:58→21:04)
[2018-06-18 07:47] LABS: MEAN CELL VOLUME 83.3 fl (80.0-94.0); MEAN CORPUSCULAR HEMOGLOBIN 27.4 pg (27.0-31.0); MEAN CORPUSCULAR HGB CONC 32.9 g/dL (33.0-37.0); RBC 4.37 Mil/uL (4.40-5.90); RED CELL DISTRIBUTION WIDTH 15.4 % (11.5-14.5); WHITE BLOOD COUNT 6.7 K/uL (4.8-10.8)
[2018-06-18 08:02] LABS: ALBUMIN 3.9 g/dL (3.5-5.0); ALT/SGPT 41 U/L (21-72); AST/SGOT 33 U/L (17-59); BLOOD UREA NITROGEN 14 mg/dl (9-20); CALCIUM 9.3 mg/dL (8.4-10.2); GFR NON-AFRICAN AMERICAN > 60
[2018-06-18] MEDS: Enoxaparin 40 mg Syringe SC SCH (08:45)
--- NOTE | 2018-06-18 09:05 | CP.PCM.PN ---
Subjective - Date & Time of Evaluation Date of Evaluation: 06/18/18 Time of Evaluation: 09:05 - Subjective Subjective: STILL IN PAIN MULTI-ABSCESSES PRESENT IN GROIN,GLUTEAL REGION AND AXILLA L AXILLA ABSCESS DRAINING Objective - Vital Signs/Intake and Output Vital Signs (last 24 hours): Temp Pulse Resp BP Pulse Ox 98.1 F 62 19 114/60 97 06/18/18 07:42 06/18/18 07:42 06/18/18 07:42 06/18/18 07:42 06/18/18 07:42 - Medications Medications: Current Medications Enoxaparin Sodium (Lovenox) 40 mg SC DAILY [facility]; Protocol Last Admin: 06/18/18 08:45 Dose: Not Given Meropenem 1 gm/ Sodium (Chloride) 100 mls @ 100 mls/hr IVPB Q8 [facility]; Protocol Last Admin: 06/18/18 00:00 Dose: 100 mls/hr Metronidazole (Flagyl 500mg/100ml Ns) 100 mls @ 100 mls/hr IVPB Q8 [facility] Last Admin: 06/18/18 08:45 Dose: 100 mls/hr Morphine Sulfate (Morphine) 2 mg IVP Q4 PRN PRN Reason: Pain, severe (8-10) Last Admin: 06/18/18 06:42 Dose: 2 mg Ondansetron HCl (Zofran Inj) 4 mg IVP Q6 PRN PRN Reason: Nausea/Vomiting Oxycodone/Acetaminophen (Percocet 5/325 Mg Tab) 2 tab PO Q4 PRN PRN Reason: Pain, moderate (4-7) Stop: 06/19/18 09:29 Last Admin: 06/18/18 08:44 Dose: 2 tab Silver Sulfadiazine (Silvadene 1% 20 Gm) 1 ea TOP Q12H [facility] Last Admin: 06/17/18 20:13 Dose: 1 ea - Labs Labs: 06/18/18 06:58 06/18/18 06:58 - Constitutional Appears: In Acute Distress - Head Exam Head Exam: ATRAUMATIC, NORMAL INSPECTION, NORMOCEPHALIC - Eye Exam Eye Exam: EOMI, Normal appearance, PERRL Pupil Exam: NORMAL ACCOMODATION, PERRL - ENT Exam ENT Exam: Mucous Membranes Moist, Normal Exam - Neck Exam Neck Exam: Full ROM, Normal Inspection. absent: Lymphadenopathy - Respiratory Exam Respiratory Exam: Clear to Ausculation Bilateral, NORMAL BREATHING PATTERN - Cardiovascular Exam Cardiovascular Exam: REGULAR RHYTHM, +S1, +S2. absent: Murmur - GI/Abdominal Exam GI & Abdominal Exam: Soft, Normal Bowel Sounds. absent: Tenderness - Rectal Exam Rectal Exam: NORMAL INSPECTION - Extremities Exam Extremities Exam: Full ROM, Normal Capillary Refill, Normal Inspection. absent: Joint Swelling, Pedal Edema - Back Exam Back Exam: NORMAL INSPECTION - Neurological Exam Neurological Exam: Alert, Awake, CN II-XII Intact, Normal Gait, Oriented x3 - Psychiatric Exam Psychiatric exam: Normal Affect, Normal Mood - Skin Skin Exam: Dry, Normal Color, Warm Additional comments: MULTI-ABSCESSES Assessment and Plan - Assessment and Plan (Free Text) Assessment: HIDROADENITIS MULTI-ABSCESSES Plan: CONTINUE CURRENT IV ANTIBIOTICS AND PAIN MANAGEMENT SURGICAL FOLLOW UP
[2018-06-18] MEDS: Meropenem 1 GM in Sodium Chloride 0.9% 100 ML IVPB SCH ×3 (09:55→17:01)
[2018-06-18] MEDS: Silver Sulfadiazine 1% Cream (20 gm) TOP SCH ×2 (10:45→21:05)
[2018-06-19] MEDS: Meropenem 1 GM in Sodium Chloride 0.9% 100 ML IVPB SCH ×3 (00:10→16:01)
[2018-06-19] MEDS: Oxycodone/Acetaminophen 5/325 mg Tab PO PRN ×6 (01:07→21:57)
[2018-06-19] MEDS: metroNIDAZOLE 500mg/100ml NS 100 ML IVPB SCH ×3 (01:07→16:01)
[2018-06-19] MEDS: Enoxaparin 40 mg Syringe SC SCH (09:09)
[2018-06-19] MEDS: Silver Sulfadiazine 1% Cream (20 gm) TOP SCH ×2 (09:11→20:02)
--- NOTE | 2018-06-19 10:12 | CP.PCM.PN ---
Subjective - Date & Time of Evaluation Date of Evaluation: 06/19/18 Time of Evaluation: 10:13 - Subjective Subjective: UPSET ABOUT NOT GETTING PAIN MEDS ON TIME THREATENED TO SIGN OUT YESTERDAY BUT THEN CHANGED HIS MIND FEELBETTER TODAY MULTI-ABSCESSES HEALING Objective - Vital Signs/Intake and Output Vital Signs (last 24 hours): Temp Pulse Resp BP Pulse Ox 97.5 F L 63 20 122/83 98 06/19/18 07:45 06/19/18 07:45 06/19/18 07:45 06/19/18 07:45 06/19/18 07:45 - Medications Medications: Current Medications Enoxaparin Sodium (Lovenox) 40 mg SC DAILY [facility]; Protocol Last Admin: 06/19/18 09:09 Dose: Not Given Meropenem 1 gm/ Sodium (Chloride) 100 mls @ 100 mls/hr IVPB Q8 [facility]; Protocol Last Admin: 06/19/18 09:08 Dose: 100 mls/hr Metronidazole (Flagyl 500mg/100ml Ns) 100 mls @ 100 mls/hr IVPB Q8 [facility] Last Admin: 06/19/18 09:08 Dose: 100 mls/hr Daptomycin 560 mg/ Sodium (Chloride) 100 mls @ 100 mls/hr IV Q24H [facility]; Protocol Stop: 06/23/18 16:01 Last Admin: 06/18/18 16:37 Dose: 100 mls/hr Morphine Sulfate (Morphine) 2 mg IVP Q4 PRN PRN Reason: Pain, severe (8-10) Last Admin: 06/19/18 07:22 Dose: 2 mg Ondansetron HCl (Zofran Inj) 4 mg IVP Q6 PRN PRN Reason: Nausea/Vomiting Silver Sulfadiazine (Silvadene 1% 20 Gm) 1 ea TOP Q12H [facility] Last Admin: 06/19/18 09:11 Dose: 1 applic - Labs Labs: 06/18/18 06:58 06/18/18 06:58 - Constitutional Appears: No Acute Distress, Chronically Ill - Head Exam Head Exam: ATRAUMATIC, NORMAL INSPECTION, NORMOCEPHALIC - Eye Exam Eye Exam: EOMI, Normal appearance, PERRL Pupil Exam: NORMAL ACCOMODATION, PERRL - ENT Exam ENT Exam: Mucous Membranes Moist, Normal Exam - Neck Exam Neck Exam: Full ROM, Normal Inspection. absent: Lymphadenopathy - Respiratory Exam Respiratory Exam: Clear to Ausculation Bilateral, NORMAL BREATHING PATTERN - Cardiovascular Exam Cardiovascular Exam: REGULAR RHYTHM, +S1, +S2. absent: Murmur - GI/Abdominal Exam GI & Abdominal Exam: Soft, Normal Bowel Sounds. absent: Tenderness - Rectal Exam Rectal Exam: NORMAL INSPECTION - Extremities Exam Extremities Exam: Full ROM, Normal Capillary Refill, Normal Inspection. absent: Joint Swelling, Pedal Edema - Back Exam Back Exam: NORMAL INSPECTION - Neurological Exam Neurological Exam: Alert, Awake, CN II-XII Intact, Normal Gait, Oriented x3 - Psychiatric Exam Psychiatric exam: Normal Affect, Normal Mood - Skin Skin Exam: Dry, Normal Color, Warm Additional comments: MULTIPLE SKIN ABSCESSES HEALING Assessment and Plan - Assessment and Plan (Free Text) Assessment: HIDROADENITIS MULTI-ABSCESSES Plan: CONTINUE IV ANTIBIOTICS AND ANALGESICS ADVISED COMPLIANCE TO RX WILL PLAN DISCHARGE ON FRIDAY
--- NOTE | 2018-06-19 15:10 | CP.PCM.PN ---
Subjective - Date & Time of Evaluation Date of Evaluation: 06/19/18 Time of Evaluation: 15:05 - Subjective Subjective: I D NOTE CONTINUES TO IMPROVE NO CHANGE IN ANTIBIOTIC COVERAGE HAVE ORDERED CPK Objective - Vital Signs/Intake and Output Vital Signs (last 24 hours): Temp Pulse Resp BP Pulse Ox 97.5 F L 63 20 122/83 98 06/19/18 07:45 06/19/18 07:45 06/19/18 07:45 06/19/18 07:45 06/19/18 07:45 - Medications Medications: Current Medications Enoxaparin Sodium (Lovenox) 40 mg SC DAILY [facility]; Protocol Last Admin: 06/19/18 09:09 Dose: Not Given Meropenem 1 gm/ Sodium (Chloride) 100 mls @ 100 mls/hr IVPB Q8 [facility]; Protocol Last Admin: 06/19/18 09:08 Dose: 100 mls/hr Metronidazole (Flagyl 500mg/100ml Ns) 100 mls @ 100 mls/hr IVPB Q8 [facility] Last Admin: 06/19/18 09:08 Dose: 100 mls/hr Daptomycin 560 mg/ Sodium (Chloride) 100 mls @ 100 mls/hr IV Q24H [facility]; Protocol Stop: 06/23/18 16:01 Last Admin: 06/18/18 16:37 Dose: 100 mls/hr Morphine Sulfate (Morphine) 2 mg IVP Q4 PRN PRN Reason: Pain, severe (8-10) Last Admin: 06/19/18 11:26 Dose: 2 mg Ondansetron HCl (Zofran Inj) 4 mg IVP Q6 PRN PRN Reason: Nausea/Vomiting Oxycodone/Acetaminophen (Percocet 5/325 Mg Tab) 2 tab PO Q4 PRN PRN Reason: Pain, moderate (4-7) Stop: 06/22/18 10:15 Last Admin: 06/19/18 13:13 Dose: 2 tab Silver Sulfadiazine (Silvadene 1% 20 Gm) 1 ea TOP Q12H [facility] Last Admin: 06/19/18 09:11 Dose: 1 applic - Labs Labs: 06/18/18 06:58 06/18/18 06:58
[2018-06-20] MEDS: metroNIDAZOLE 500mg/100ml NS 100 ML IVPB SCH ×3 (00:01→16:07)
[2018-06-20] MEDS: Meropenem 1 GM in Sodium Chloride 0.9% 100 ML IVPB SCH ×3 (00:02→17:04)
[2018-06-20] MEDS: Oxycodone/Acetaminophen 5/325 mg Tab PO PRN ×6 (02:05→23:06)
[2018-06-20] MEDS: Silver Sulfadiazine 1% Cream (20 gm) TOP SCH ×2 (08:50→21:04)
[2018-06-20] MEDS: Enoxaparin 40 mg Syringe SC SCH (08:57)
--- NOTE | 2018-06-20 10:41 | CP.PCM.PN ---
Subjective - Date & Time of Evaluation Date of Evaluation: 06/20/18 Time of Evaluation: 10:43 - Subjective Subjective: CLINICALLY IMPROVING AFEBRILE LESS DRAINING AT ABSCESS SITES Objective - Vital Signs/Intake and Output Vital Signs (last 24 hours): Temp Pulse Resp BP Pulse Ox 97.9 F 67 20 123/75 94 L 06/20/18 08:58 06/20/18 08:49 06/20/18 08:58 06/20/18 08:58 06/20/18 08:58 - Medications Medications: Current Medications Enoxaparin Sodium (Lovenox) 40 mg SC DAILY [facility]; Protocol Last Admin: 06/20/18 08:57 Dose: Not Given Meropenem 1 gm/ Sodium (Chloride) 100 mls @ 100 mls/hr IVPB Q8 [facility]; Protocol Last Admin: 06/20/18 10:37 Dose: 100 mls/hr Metronidazole (Flagyl 500mg/100ml Ns) 100 mls @ 100 mls/hr IVPB Q8 [facility] Last Admin: 06/20/18 08:49 Dose: 100 mls/hr Daptomycin 560 mg/ Sodium (Chloride) 100 mls @ 100 mls/hr IV Q24H [facility]; Protocol Stop: 06/23/18 16:01 Last Admin: 06/19/18 15:24 Dose: 100 mls/hr Morphine Sulfate (Morphine) 2 mg IVP Q4 PRN PRN Reason: Pain, severe (8-10) Last Admin: 06/20/18 08:50 Dose: 2 mg Ondansetron HCl (Zofran Inj) 4 mg IVP Q6 PRN PRN Reason: Nausea/Vomiting Oxycodone/Acetaminophen (Percocet 5/325 Mg Tab) 2 tab PO Q4 PRN PRN Reason: Pain, moderate (4-7) Stop: 06/22/18 10:15 Last Admin: 06/20/18 07:03 Dose: 2 tab Silver Sulfadiazine (Silvadene 1% 20 Gm) 1 ea TOP Q12H [facility] Last Admin: 06/20/18 08:50 Dose: 1 applic - Labs Labs: 06/18/18 06:58 06/18/18 06:58 - Constitutional Appears: No Acute Distress - Head Exam Head Exam: ATRAUMATIC, NORMAL INSPECTION, NORMOCEPHALIC - Eye Exam Eye Exam: EOMI, Normal appearance, PERRL Pupil Exam: NORMAL ACCOMODATION, PERRL - ENT Exam ENT Exam: Mucous Membranes Moist, Normal Exam - Neck Exam Neck Exam: Full ROM, Normal Inspection. absent: Lymphadenopathy - Respiratory Exam Respiratory Exam: Clear to Ausculation Bilateral, NORMAL BREATHING PATTERN - Cardiovascular Exam Cardiovascular Exam: REGULAR RHYTHM, +S1, +S2. absent: Murmur - GI/Abdominal Exam GI & Abdominal Exam: Soft, Normal Bowel Sounds. absent: Tenderness - Rectal Exam Rectal Exam: NORMAL INSPECTION - Extremities Exam Extremities Exam: Full ROM, Normal Capillary Refill, Normal Inspection. absent: Joint Swelling, Pedal Edema - Back Exam Back Exam: NORMAL INSPECTION - Neurological Exam Neurological Exam: Alert, Awake, CN II-XII Intact, Normal Gait, Oriented x3 - Psychiatric Exam Psychiatric exam: Normal Affect, Normal Mood - Skin Skin Exam: Dry, Intact, Normal Color, Warm Additional comments: AXILLA/GLUTEAL AND GROIN ABSCESS SITES IMPROVING Assessment and Plan - Assessment and Plan (Free Text) Assessment: HIDROADENITIS-IMPROVING MULTI-ABSCESSES IMPROVING Plan: CONTINUE CURRENT RX D/C HOME ON FRIDAY WITH PO ANTIBIOTICS--DISCUSSED WITH ID
[2018-06-21] MEDS: metroNIDAZOLE 500mg/100ml NS 100 ML IVPB SCH ×3 (00:05→18:26)
[2018-06-21] MEDS: Meropenem 1 GM in Sodium Chloride 0.9% 100 ML IVPB SCH ×3 (01:06→17:11)
[2018-06-21] MEDS: Oxycodone/Acetaminophen 5/325 mg Tab PO PRN ×5 (03:03→19:53)
[2018-06-21] MEDS: Silver Sulfadiazine 1% Cream (20 gm) TOP SCH ×3 (08:34→22:19)
[2018-06-21] MEDS: Enoxaparin 40 mg Syringe SC SCH (08:35)
--- NOTE | 2018-06-21 10:33 | CP.PCM.PN ---
Subjective - Date & Time of Evaluation Date of Evaluation: 06/21/18 Time of Evaluation: 10:33 - Subjective Subjective: AFEBRILE LESS DRAINAGE VIA MULTIPLE ABSCESS SITES LESS PAIN Objective - Vital Signs/Intake and Output Vital Signs (last 24 hours): Temp Pulse Resp BP Pulse Ox 97.5 F L 78 18 108/71 98 06/21/18 08:50 06/21/18 08:50 06/21/18 08:50 06/21/18 08:50 06/21/18 08:50 - Medications Medications: Current Medications Enoxaparin Sodium (Lovenox) 40 mg SC DAILY [facility]; Protocol Last Admin: 06/21/18 08:35 Dose: Not Given Meropenem 1 gm/ Sodium (Chloride) 100 mls @ 100 mls/hr IVPB Q8 [facility]; Protocol Last Admin: 06/21/18 08:28 Dose: 100 mls/hr Metronidazole (Flagyl 500mg/100ml Ns) 100 mls @ 100 mls/hr IVPB Q8 [facility] Last Admin: 06/21/18 09:51 Dose: 100 mls/hr Daptomycin 560 mg/ Sodium (Chloride) 100 mls @ 100 mls/hr IV Q24H [facility]; Protocol Stop: 06/23/18 16:01 Last Admin: 06/20/18 18:10 Dose: 100 mls/hr Morphine Sulfate (Morphine) 2 mg IVP Q4 PRN PRN Reason: Pain, severe (8-10) Last Admin: 06/21/18 09:13 Dose: 2 mg Ondansetron HCl (Zofran Inj) 4 mg IVP Q6 PRN PRN Reason: Nausea/Vomiting Oxycodone/Acetaminophen (Percocet 5/325 Mg Tab) 2 tab PO Q4 PRN PRN Reason: Pain, moderate (4-7) Stop: 06/22/18 10:15 Last Admin: 06/21/18 07:15 Dose: 2 tab Silver Sulfadiazine (Silvadene 1% 20 Gm) 1 ea TOP Q12H [facility] Last Admin: 06/21/18 08:34 Dose: 1 applic - Labs Labs: 06/18/18 06:58 06/18/18 06:58 - Constitutional Appears: Well, No Acute Distress - Head Exam Head Exam: ATRAUMATIC, NORMAL INSPECTION, NORMOCEPHALIC - Eye Exam Eye Exam: EOMI, Normal appearance, PERRL Pupil Exam: NORMAL ACCOMODATION, PERRL - ENT Exam ENT Exam: Mucous Membranes Moist, Normal Exam - Neck Exam Neck Exam: Full ROM, Normal Inspection. absent: Lymphadenopathy - Respiratory Exam Respiratory Exam: Clear to Ausculation Bilateral, NORMAL BREATHING PATTERN - Cardiovascular Exam Cardiovascular Exam: REGULAR RHYTHM, +S1, +S2. absent: Murmur - GI/Abdominal Exam GI & Abdominal Exam: Soft, Normal Bowel Sounds. absent: Tenderness - Rectal Exam Rectal Exam: NORMAL INSPECTION - Extremities Exam Extremities Exam: Full ROM, Normal Capillary Refill, Normal Inspection. absent: Joint Swelling, Pedal Edema - Back Exam Back Exam: NORMAL INSPECTION - Neurological Exam Neurological Exam: Alert, Awake, CN II-XII Intact, Normal Gait, Oriented x3 - Psychiatric Exam Psychiatric exam: Normal Affect, Normal Mood - Skin Skin Exam: Dry, Normal Color, Warm Additional comments: ABSCESS SITES HEALING WELL Assessment and Plan - Assessment and Plan (Free Text) Assessment: HIDROADENITIS--HEALING MULTI-SKIN ABSCESSES HEALING Plan: CONTINUE ANTIBIOTIC RX DISCHARGE IN AM ON PO ANTIBIOTICS AND ANALGESICS FOLLOW UP WITH PMD
--- NOTE | 2018-06-21 13:18 | CP.PCM.PN ---
Subjective - Date & Time of Evaluation Date of Evaluation: 06/21/18 Time of Evaluation: 13:12 - Subjective Subjective: I D NOTE PATIENT DID WELL ON DAPTOMYCIN/MEROPENEM IF INSURANCE COVERS WOULD GIVE ZYVOX 600MG PO BID AND CEFTIN 500MG PO QD IF ZYVOX NOT COVERED GIVE BACTRIM Objective - Vital Signs/Intake and Output Vital Signs (last 24 hours): Temp Pulse Resp BP Pulse Ox 97.5 F L 78 18 108/71 98 06/21/18 08:50 06/21/18 08:50 06/21/18 08:50 06/21/18 08:50 06/21/18 08:50 - Medications Medications: Current Medications Enoxaparin Sodium (Lovenox) 40 mg SC DAILY [facility]; Protocol Last Admin: 06/21/18 08:35 Dose: Not Given Meropenem 1 gm/ Sodium (Chloride) 100 mls @ 100 mls/hr IVPB Q8 [facility]; Protocol Last Admin: 06/21/18 08:28 Dose: 100 mls/hr Metronidazole (Flagyl 500mg/100ml Ns) 100 mls @ 100 mls/hr IVPB Q8 [facility] Last Admin: 06/21/18 09:51 Dose: 100 mls/hr Daptomycin 560 mg/ Sodium (Chloride) 100 mls @ 100 mls/hr IV Q24H [facility]; Protocol Stop: 06/23/18 16:01 Last Admin: 06/20/18 18:10 Dose: 100 mls/hr Morphine Sulfate (Morphine) 2 mg IVP Q4 PRN PRN Reason: Pain, severe (8-10) Last Admin: 06/21/18 09:13 Dose: 2 mg Ondansetron HCl (Zofran Inj) 4 mg IVP Q6 PRN PRN Reason: Nausea/Vomiting Oxycodone/Acetaminophen (Percocet 5/325 Mg Tab) 2 tab PO Q4 PRN PRN Reason: Pain, moderate (4-7) Stop: 06/22/18 10:15 Last Admin: 06/21/18 12:18 Dose: 2 tab Silver Sulfadiazine (Silvadene 1% 20 Gm) 1 ea TOP Q12H [facility] Last Admin: 06/21/18 08:34 Dose: 1 applic - Labs Labs: 06/18/18 06:58 06/18/18 06:58
[2018-06-21 16:23] VITALS: RESP 20
[2018-06-22] MEDS: Oxycodone/Acetaminophen 5/325 mg Tab PO PRN ×2 (00:03→05:53)
[2018-06-22] MEDS: metroNIDAZOLE 500mg/100ml NS 100 ML IVPB SCH ×2 (00:04→08:26)
[2018-06-22] MEDS: Meropenem 1 GM in Sodium Chloride 0.9% 100 ML IVPB SCH ×2 (00:04→09:29)
[2018-06-22] MEDS: Enoxaparin 40 mg Syringe SC SCH (08:32)
[2018-06-22] MEDS: Silver Sulfadiazine 1% Cream (20 gm) TOP SCH ×2 (08:33→10:34)
[2018-06-22 08:40] VITALS: BP 124/79; PULSE 60; TEMP 97.9; O2SAT 98
--- NOTE | 2018-06-22 09:16 | CP.PCM.DIS ---
Provider - Provider Date of Admission: 06/12/18 12:20 Attending physician: Dell Manriquez MD Consults: 06/11/18 15:45 General Surgery Consult Stat Comment: Consulting Provider: Isrrael Nunez Consulting Physician: Isrrael Nunez Reason for Consult: hidraadenitis 06/12/18 08:35 Infectious Disease Consult Routine Comment: Consulting Provider: Daniel Vaca Consulting Physician: Daniel Vaca Reason for Consult: cellulitis Right buttocks 06/12/18 17:28 Nursing Referral for Wound Care Routine Comment: Physician Instructions: Reason For Exam: Abscess 06/15/18 08:00 Case Management Referral Routine Comment: Physician Instructions: Reason For Exam: Reason for Referral: Discharge Planning 06/15/18 09:32 Social Work Referral Routine Comment: Physician Instructions: Reason For Exam: DISCHARGE PLANNING 06/16/18 23:47 Social Work Referral Routine Comment: discharge planning Physician Instructions: Reason For Exam: discharge planning 06/18/18 08:16 Anesthesiology Consult Routine Comment: Consulting Provider: Felecia Yuan Consulting Physician: Felecia Yuan Reason for Consult: pain management Time Spent in preparation of Discharge (in minutes): 35 Diagnosis - Discharge Diagnosis (1) Gluteal abscess Status: Acute (2) Abscess, axilla Status: Acute (3) Hidradenitis suppurativa Status: Chronic (4) DVT prophylaxis Status: Acute (5) Scrotal abscess Status: Resolved Hospital Course - Lab Results Lab Results: Micro Results 06/11/18 12:55 Blood-Venous Blood Culture - Final NO GROWTH AFTER 5 DAYS 06/11/18 12:55 Blood-Venous Gram Stain - Final TEST NOT PERFORMED 06/11/18 12:40 Blood-Venous Blood Culture - Final NO GROWTH AFTER 5 DAYS 06/11/18 12:40 Blood-Venous Gram Stain - Final TEST NOT PERFORMED 06/12/18 18:00 Axilla Gram Stain - Final 06/12/18 18:00 Axilla Wound Culture - Final Corynebacterium Species Most Recent Lab Values WBC 6.7 K/uL (4.8-10.8) 06/18/18 06:58 RBC 4.37 Mil/uL (4.40-5.90) L 06/18/18 06:58 Hgb 12.0 g/dL (12.0-18.0) 06/18/18 06:58 Hct 36.4 % (35.0-51.0) 06/18/18 06:58 MCV 83.3 fl (80.0-94.0) 06/18/18 06:58 MCH 27.4 pg (27.0-31.0) 06/18/18 06:58 MCHC 32.9 g/dL (33.0-37.0) L 06/18/18 06:58 RDW 15.4 % (11.5-14.5) H 06/18/18 06:58 Plt Count 271 K/uL (130-400) 06/18/18 06:58 MPV 9.0 fl (7.2-11.7) 06/12/18 06:55 Neut % (Auto) 62.4 % (50.0-75.0) 06/12/18 06:55 Lymph % (Auto) 26.6 % (20.0-40.0) 06/12/18 06:55 [place] % (Auto) 8.2 % (0.0-10.0) 06/12/18 06:55 Eos % (Auto) 2.1 % (0.0-4.0) 06/12/18 06:55 Baso % (Auto) 0.7 % (0.0-2.0) 06/12/18 06:55 Neut # (Auto) 5.9 K/uL (1.8-7.0) 06/12/18 06:55 Lymph # (Auto) 2.5 K/uL (1.0-4.3) 06/12/18 06:55 [place] # (Auto) 0.8 K/uL (0.0-0.8) 06/12/18 06:55 Eos # (Auto) 0.2 K/uL (0.0-0.7) 06/12/18 06:55 Baso # (Auto) 0.1 K/uL (0.0-0.2) 06/12/18 06:55 Sodium 139 mmol/l (132-148) 06/18/18 06:58 Potassium 4.4 MMOL/L (3.6-5.0) 06/18/18 06:58 Chloride 105 mmol/L (98-107) 06/18/18 06:58 Carbon Dioxide 26 mmol/L (22-30) 06/18/18 06:58 Anion Gap 12 (10-20) 06/18/18 06:58 BUN 14 mg/dl (9-20) 06/18/18 06:58 Creatinine 0.8 mg/dl (0.8-1.5) 06/18/18 06:58 Est GFR ( Amer) > 60 06/18/18 06:58 Est GFR (Non-Af Amer) > 60 06/18/18 06:58 Random Glucose 91 mg/dL (75-110) 06/18/18 06:58 Calcium 9.3 mg/dL (8.4-10.2) 06/18/18 06:58 Total Bilirubin 0.3 mg/dl (0.2-1.3) 06/18/18 06:58 AST 33 U/L (17-59) 06/18/18 06:58 ALT 41 U/L (21-72) 06/18/18 06:58 Alkaline Phosphatase 66 U/L (38-126) 06/18/18 06:58 Total Creatine Kinase 58 U/L (55-170) 06/20/18 06:00 Total Protein 7.7 G/DL (6.3-8.2) 06/18/18 06:58 Albumin 3.9 g/dL (3.5-5.0) 06/18/18 06:58 Globulin 3.8 gm/dL (2.2-3.9) 06/18/18 06:58 Albumin/Globulin Ratio 1.0 (1.0-2.1) 06/18/18 06:58 Urine Color Straw (YELLOW) 06/11/18 13:25 Urine Clarity Clear (Clear) 06/11/18 13:25 Urine pH 8.0 (5.0-8.0) 06/11/18 13:25 Ur Specific [place] 1.011 (1.003-1.030) 06/11/18 13:25 Urine Protein Negative mg/dL (NEGATIVE) 06/11/18 13:25 Urine Glucose (UA) Neg mg/dL (NEGATIVE) 06/11/18 13:25 Urine Ketones Negative mg/dL (NEGATIVE) 06/11/18 13:25 Urine Blood Negative (NEGATIVE) 06/11/18 13:25 Urine Nitrate Negative (NEGATIVE) 06/11/18 13:25 Urine Bilirubin Negative (NEGATIVE) 06/11/18 13:25 Urine Urobilinogen 0.2-1.0 mg/dL (0.2-1.0) 06/11/18 13:25 Ur Leukocyte Esterase Neg Faby/uL (Negative) 06/11/18 13:25 Urine RBC (Auto) 1 /hpf (0-3) 06/11/18 13:25 Urine Microscopic WBC 1 /hpf (0-5) 06/11/18 13:25 - Hospital Course Hospital Course: 32 YR OLD MALE ADMITTED WITH GLUTEAL,SCROTAL AND AXILLA ABSCESS WITH HIDRADENITIS.HE WAS IN EXTREME DISTRESS BECAUSE OF PAIN AND ABSCESS DRAINAGE REQUING MULTIPLE ANTIBIOTICS AND PAIN MANAGEMENT.SURGICAL CONSULTATION AND INFECTIOUS DZ INTERVENTION WERE SOUGHT FOR APPROPRIATE THERAPY. HE RESPONDED APPROPRIATELY TO THERAPY WITH DECREASE IN SIZE AND DRAINAGE OF ABSCESSES. HE WILL BE D/LUL HOME ON BACTRIM,CEFTIN AND PERCOCET TODAY.HE WILL FOLLOW UP[ WITH HIS PMD AND INFECTIOUS DZ Discharge Exam - Head Exam Head Exam: ATRAUMATIC, NORMAL INSPECTION, NORMOCEPHALIC - Eye Exam Eye Exam: EOMI, Normal appearance, PERRL Pupil Exam: NORMAL ACCOMODATION, PERRL - GI/Abdominal Exam GI & Abdominal Exam: Normal Bowel Sounds - Rectal Exam Rectal Exam: NORMAL INSPECTION - Neurological Exam Neurological exam: Alert, CN II-XII Intact, Normal Gait, Oriented x3, Reflexes Normal - Psychiatric Exam Psychiatric exam: Normal Affect, Normal Mood - Skin Skin Exam: Dry, Intact, Normal Color, Warm Additional comments: HEALING GROIN,GLUTEAL AND AXILLA ABSCESSES Discharge Plan - Follow Up Plan Condition: STABLE Disposition: HOME/ ROUTINE Instructions: Hidradenitis Suppurativa Additional Instructions: DISCHARGE TODAY FOLLOW UP WITH PMD
== END 2018-06-22 12:34 | disposition home or self-care (01) | DRG 277 ==
LOC: H.ER 10:47 → H.ERHOLD 19:22 → H.MEDSURG1 22:09 → OBSVTOIN 06-12 12:20
PROVIDERS: ADMIT Internal Medicine Pulmonary Disease; ATTEND Internal Medicine Pulmonary Disease
DX: L02.31 Cutaneous abscess of buttock (principal); L02.214 Cutaneous abscess of groin; L02.412 Cutaneous abscess of left axilla; L73.2 Hidradenitis suppurativa; G89.29 Other chronic pain; Z91.013 Allergy to seafood; N49.2 Inflammatory disorders of scrotum

== ENCOUNTER 2018-06-29 23:15 | Inpatient (IN) | payer OTHER ==
[2018-06-29 23:15] VITALS: BMI 30.4
--- NOTE | 2018-06-30 02:36 | ED PDOC ---
HPI: Skin/Bite Injury Time Seen by Provider: 06/30/18 00:00 Chief Complaint (Nursing): Abnormal Skin Integrity Chief Complaint (Provider): groin abscess History Per: Patient Additional Complaint(s): 32 yo m with history of hiradenitis supparitva, multiple groin abscesses, recently dc from here after admission for same, pt is currently on oral antibiotics, coming in with recurrence of groin abscess with pain and swelling in that area. no fever/chills/vomiting Past Medical History Vital Signs: Last Vital Signs Temp 98.5 F 06/29/18 23:17 Pulse 101 H 06/29/18 23:17 Resp 16 06/29/18 23:17 BP 147/97 H 06/29/18 23:17 Pulse Ox 97 06/29/18 23:17 - Medical History PMH: No Chronic Diseases, Fractures Denies: HIV, Chronic Kidney Disease Other PMH: hiradenitis supparitiva, multiple abscesses - Surgical History Other surgeries: I and Ds - Family History Family History: States: Unknown Family Hx - Social History Current smoker - smoking cessation education provided: No Alcohol: Occasional Drugs: Denies - Home Medications Home Medications: Ambulatory Orders Medication Instructions Recorded Sulfamethoxazole/Trimethoprim 1 tab PO BID #20 tab 06/22/18 [Bactrim DS 800 mg-160 mg] - Allergies Allergies/Adverse Reactions: Allergies Allergy/AdvReac Type Severity Reaction Status Date / Time shellfish derived Allergy ITCHING Verified 04/27/18 21:48 Physical Exam - Physical Exam Back: Positive for: Other (groin abscess lining fromthe perineal area through to base of hte scrotum. but doesnt involve the scrotum or testicle. ) Extremity: Positive for: Normal ROM Neurological/Psych: Positive for: Awake, Alert - Laboratory Results Result Diagrams: 06/30/18 03:15 06/30/18 03:15 - ECG O2 Sat by Pulse Oximetry: 97 Medical Decision Making Medical Decision Making: recurrent perineal abscess going into scrotal area - recurrent labs, blood cultures, surgery consult and ID consult surgery resident aware of case (dr lacy). pt rafael admitte dfor possible further I and D and will wait for input from ID team Dr ayers aware of pt for admission (pt does not have dr kitchen, has insurance) surgery resident - (romel) Id (christiano) Disposition - Clinical Impression Clinical Impression: Gluteal abscess - Patient ED Disposition Is Patient to be Admitted: Yes Counseled Patient/Family Regarding: Studies Performed, Diagnosis - Disposition Disposition Time: 03:00 Condition: STABLE
[2018-06-30 03:30] LABS: BASO # 0.1 K/uL (0.0-0.2); BASO % 0.9 % (0.0-2.0); EOS # 0.2 K/uL (0.0-0.7); EOS % 1.3 % (0.0-4.0); HEMOGLOBIN 12.5 g/dL (12.0-18.0); LYMPH # 3.1 K/uL (1.0-4.3); LYMPH % 22.6 % (20.0-40.0); MEAN CELL VOLUME 81.5 fl (80.0-94.0); MEAN CORPUSCULAR HEMOGLOBIN 27.8 pg (27.0-31.0); MEAN CORPUSCULAR HGB CONC 34.1 g/dL (33.0-37.0); MEAN PLATELET VOLUME 9.9 fl (7.2-11.7); MONO # 1.1 K/uL (0.0-0.8); MONO % 8.3 % (0.0-10.0); NEUT % 66.9 % (50.0-75.0); NRBC % 0.1 % (0.0-0.0); RBC 4.5 Mil/uL (4.40-5.90); RED CELL DISTRIBUTION WIDTH 16.2 % (11.5-14.5); WHITE BLOOD COUNT 13.5 K/uL (4.8-10.8)
[2018-06-30 03:37] LABS: ALBUMIN 3.9 g/dL (3.5-5.0); ALT/SGPT 66 U/L (21-72); AST/SGOT 28 U/L (17-59); BLOOD UREA NITROGEN 15 mg/dl (9-20); CALCIUM 9.4 mg/dL (8.4-10.2); GFR NON-AFRICAN AMERICAN > 60
[2018-06-30] MEDS ORDERED: Oxycodone/Acetaminophen 5/325 mg Tab PO ONE (04:11)
[2018-06-30] MEDS ORDERED: Lactated Ringer's 1,000 ML IV SCH (06:00)
--- NOTE | 2018-06-30 06:26 | CP.PCM.CON ---
<Wilfredo Sims Evelio - Last Filed: 06/30/18 06:27> History of Present Illness - History of Present Illness History of Present Illness: General Surgery: Dr Prince Pt radha a 32M w/ hx of hidradenitis suppurotiva s/p 5 I&Ds in the past of groin abscesses. Pt recently admitted for the same and treated with IV abx. Improved transiently and was d/c on PO abx, but now returns with worsening pain, fluctuance and subjective fevers. Found to have leukocytosis 13.5k in ED. Pt reports pain and swelling has gotten progressively worse since discharge. Reports previous occurrences of this severity have required incision and drainage. Pt requesting stronger pain meds as well. RO attempted but pt very tender at this time. No evidence of fistula Review of Systems - Review of Systems All systems: reviewed and no additional remarkable complaints except (as per hpi) Past Patient History - Infectious Disease Hx of Infectious Diseases: None - Past Medical History & Family History Past Medical History?: Yes - Past Social History Smoking Status: Never Smoked - CARDIAC Hx Cardiac Disorders: No - PULMONARY Hx Respiratory Disorders: No - NEUROLOGICAL Hx Neurological Disorder: No - HEENT Hx HEENT Problems: No - RENAL Hx Chronic Kidney Disease: No - ENDOCRINE/METABOLIC Hx Endocrine Disorders: No - HEMATOLOGICAL/ONCOLOGICAL Hx Human Immunodeficiency Virus (HIV): No - INTEGUMENTARY Hx Dermatological Problems: Yes (Pt has hidradenitis suppurativa) Other/Comment: hidradenitis suppurativa - MUSCULOSKELETAL/RHEUMATOLOGICAL Hx Falls: No Hx Fractures: Yes (right hand) - GASTROINTESTINAL Hx Gastrointestinal Disorders: No - GENITOURINARY/GYNECOLOGICAL Hx Genitourinary Disorders: No - PSYCHIATRIC Hx Psychophysiologic Disorder: No Hx Substance Use: No - SURGICAL HISTORY Hx Surgeries: Yes Other/Comment: Scrotal debridement. Axillary debridement. Multiple I&Ds. Right hand surgery. Right ankle Surgery - ANESTHESIA Hx Anesthesia: Yes Hx Anesthesia Reactions: No Hx Malignant Hyperthermia: No Meds Allergies/Adverse Reactions: Allergies Allergy/AdvReac Type Severity Reaction Status Date / Time shellfish derived Allergy ITCHING Verified 04/27/18 21:48 - Medications Medications: Current Medications Vancomycin HCl 1 gm/ Sodium (Chloride) 250 mls @ 166.667 mls/hr IVPB Q12 PATTI; Protocol Piperacillin Sod/Tazobactam (Sod 3.375 gm/ Sodium Chloride) 100 mls @ 100 mls/hr IVPB Q6 PATTI; Protocol Lactated Ringer's (Lactated Ringer's) 1,000 mls @ 100 mls/hr IV .Q10H PATTI Physical Exam - Constitutional Appears: Non-toxic, No Acute Distress - Head Exam Head Exam: NORMOCEPHALIC - Eye Exam Eye Exam: absent: Scleral icterus - Respiratory Exam Respiratory Exam: NORMAL BREATHING PATTERN - Cardiovascular Exam Cardiovascular Exam: absent: Tachycardia - GI/Abdominal Exam GI & Abdominal Exam: Soft. absent: Distended, Firm, Guarding, Tenderness - Rectal Exam Additional comments: attempted but pt in pain and unable to tolerate full examination no bloody discharge or evidence of fistula Results - Vital Signs Recent Vital Signs: Last Vital Signs Temp 97.8 F 06/30/18 04:51 Pulse 62 06/30/18 04:51 Resp 18 06/30/18 04:51 BP 139/77 06/30/18 04:51 Pulse Ox 99 06/30/18 04:51 - Labs Result Diagrams: 06/30/18 03:15 06/30/18 03:15 Labs: Laboratory Results - last 24 hr 06/30/18 06/30/18 03:15 03:15 WBC 13.5 H D RBC 4.50 Hgb 12.5 Hct 36.7 MCV 81.5 MCH 27.8 MCHC 34.1 RDW 16.2 H Plt Count 201 MPV 9.9 Neut % (Auto) 66.9 Lymph % (Auto) 22.6 [place] % (Auto) 8.3 Eos % (Auto) 1.3 Baso % (Auto) 0.9 Neut # (Auto) 9.0 H Lymph # (Auto) 3.1 [place] # (Auto) 1.1 H Eos # (Auto) 0.2 Baso # (Auto) 0.1 Sodium 137 Potassium 3.8 Chloride 105 Carbon Dioxide 22 Anion Gap 14 BUN 15 Creatinine 0.8 Est GFR ( Amer) > 60 Est GFR (Non-Af Amer) > 60 Random Glucose 124 H Calcium 9.4 Total Bilirubin 0.5 AST 28 ALT 66 Alkaline Phosphatase 74 Total Protein 7.8 Albumin 3.9 Globulin 3.8 Albumin/Globulin Ratio 1.0 Assessment & Plan - Assessment and Plan (Free Text) Assessment: 32M with groin abscess secondary to hidradenitis Plan: NPO Zosyn/Vanco per ID consult possible OR this afternoon will f/u with Dr Prince or Dr Maxx Sims, PGY4 <Deep Lilly - Last Filed: 06/30/18 14:27> Meds - Medications Medications: Current Medications Lactated Ringer's (Lactated Ringer's) 1,000 mls @ 100 mls/hr IV .Q10H PATTI Last Admin: 06/30/18 06:24 Dose: 100 mls/hr Vancomycin HCl 1 gm/ Sodium (Chloride) 250 mls @ 166.667 mls/hr IVPB Q12 PATTI; Protocol Last Admin: 06/30/18 10:27 Dose: 166.667 mls/hr Piperacillin Sod/Tazobactam (Sod 3.375 gm/ Sodium Chloride) 100 mls @ 100 mls/hr IVPB Q6 PATTI; Protocol Last Admin: 06/30/18 10:26 Dose: 100 mls/hr Morphine Sulfate (Morphine) 2 mg IVP Q4 PRN PRN Reason: Pain, Mild (1-3) Last Admin: 06/30/18 12:28 Dose: 2 mg Results - Vital Signs Recent Vital Signs: Last Vital Signs Temp 97.5 F L 06/30/18 08:45 Pulse 67 06/30/18 08:45 Resp 20 06/30/18 08:45 BP 120/75 06/30/18 08:45 Pulse Ox 100 06/30/18 08:45 - Labs Result Diagrams: 06/30/18 03:15 06/30/18 03:15 Labs: Laboratory Results - last 24 hr 06/30/18 06/30/18 03:15 03:15 WBC 13.5 H D RBC 4.50 Hgb 12.5 Hct 36.7 MCV 81.5 MCH 27.8 MCHC 34.1 RDW 16.2 H Plt Count 201 MPV 9.9 Neut % (Auto) 66.9 Lymph % (Auto) 22.6 [place] % (Auto) 8.3 Eos % (Auto) 1.3 Baso % (Auto) 0.9 Neut # (Auto) 9.0 H Lymph # (Auto) 3.1 [place] # (Auto) 1.1 H Eos # (Auto) 0.2 Baso # (Auto) 0.1 Sodium 137 Potassium 3.8 Chloride 105 Carbon Dioxide 22 Anion Gap 14 BUN 15 Creatinine 0.8 Est GFR ( Amer) > 60 Est GFR (Non-Af Amer) > 60 Random Glucose 124 H Calcium 9.4 Total Bilirubin 0.5 AST 28 ALT 66 Alkaline Phosphatase 74 Total Protein 7.8 Albumin 3.9 Globulin 3.8 Albumin/Globulin Ratio 1.0 Assessment & Plan - Assessment and Plan (Free Text) Plan: 32yo M with hx of hidradenitis presents to ED with chronic left gluteal pain. Pt recently dc from hospital for similar complaints. Pt reports with worsening pain to left gluteal area without any drainage. gen: awake, alert, NAD HEENT: NC/AT, eomi, perrla no acute respiratory distress abd: soft, NT, ND left gluteal area indurated, minimal discomfort on palpation, no drainage, no fluctuance, <1cm swelling to periteneal area soft, minimal tenderness, ?fluctuance 32yo M with with hx of hidraneitis presents with left gluteal pain -CT scan reviewed no evidence of drainable abscess, inflammation has improved since previous CT scan -would recommend IV abx -warm compresses -will monitor area for developing abscess -no acute intervention will continue to follow
[2018-06-30] MEDS ORDERED: Piperacillin/Tazobact 3.375 GM in Sodium Chloride 0.9% 100 ML IVPB SCH (10:00)
[2018-06-30] MEDS: Piperacillin/Tazobact 3.375 GM in Sodium Chloride 0.9% 100 ML IVPB SCH ×3 (10:26→21:34)
--- NOTE | 2018-06-30 12:25 | CT ---
Date of service: 06/30/2018 PROCEDURE: CT Pelvis with contrast HISTORY: evaluate for abscess COMPARISON: 06/01/2018, 06/11/2018. Sequential CT scans of the pelvis. TECHNIQUE: Contiguous axial images of the pelvis with contrast. Coronal and sagittal reformats generated. Contrast dose: 95 cc Omnipaque 300. Radiation dose: Total exam DLP = 5856.74 mGy-cm. This CT exam was performed using one or more of the following dose reduction techniques: Automated exposure control, adjustment of the mA and/or kV according to patient size, and/or use of iterative reconstruction technique. FINDINGS: BLADDER: Unremarkable. No mass. REPRODUCTIVE ORGANS: Unremarkable. VISUALIZED BOWEL: Unremarkable. PERITONEUM: Unremarkable, as visualized. No free fluid. No free air. LYMPH NODES: Unremarkable. No enlarged lymph nodes. VASCULATURE: No aortic atherosclerotic calcification or mural plaque present. BONES: No fracture or focal lesion. OTHER FINDINGS: Decrease and left gluteal subcutaneous abscess. No appreciable/drainable collection identified. Inflammatory changes remain extending medially into the perineal and perianal region. IMPRESSION: Interval improvement in subcutaneous inflammatory changes-abscess compared to the prior study. No residual drainable collection. Cutaneous and subcutaneous a changes extend medially toward perianal and perineal regions.
--- NOTE | 2018-06-30 15:18 | CP.PCM.PN ---
Subjective - Date & Time of Evaluation Date of Evaluation: 06/30/18 Time of Evaluation: 15:16 - Subjective Subjective: I D NOTE PATIENT EXAMINED,EMR REVIEWED HAVE STARTED DAPTOMYCIN,DISCONTINUED VANCOMYCIN FULL CONSULT DICTATED Objective - Vital Signs/Intake and Output Vital Signs (last 24 hours): Temp Pulse Resp BP Pulse Ox 97.5 F L 67 20 120/75 100 06/30/18 08:45 06/30/18 08:45 06/30/18 08:45 06/30/18 08:45 06/30/18 08:45 - Medications Medications: Current Medications Lactated Ringer's (Lactated Ringer's) 1,000 mls @ 100 mls/hr IV .Q10H PATTI Last Admin: 06/30/18 06:24 Dose: 100 mls/hr Piperacillin Sod/Tazobactam (Sod 3.375 gm/ Sodium Chloride) 100 mls @ 100 mls/hr IVPB Q6 PATTI; Protocol Last Admin: 06/30/18 10:26 Dose: 100 mls/hr Daptomycin 560 mg/ Sodium (Chloride) 100 mls @ 100 mls/hr IV Q24H PATTI; Protocol Stop: 07/05/18 15:16 Morphine Sulfate (Morphine) 2 mg IVP Q4 PRN PRN Reason: Pain, Mild (1-3) Last Admin: 06/30/18 12:28 Dose: 2 mg - Labs Labs: 06/30/18 03:15 06/30/18 03:15
[2018-06-30] MEDS: Oxycodone/Acetaminophen 5/325 mg Tab PO PRN (19:09)
--- NOTE | 2018-07-01 00:54 | CP.PCM.HP ---
History of Present Illness - History of Present Illness History of Present Illness: CC: Groin Abscess. HPI: 32 y/o male with a PMH of hidradenitis suppurativa presented to the ED with a worsening groin abscess. The pt has been hospitalized 4 times since April for recurrent abscess formation. He is currently on Bactrim at home. PMH: Hidradenitis Suppurativa PSH: Previous, unspecified I&Ds. Social History: Smoker, social/casual drinker. Allergies: Shellfish derived. Subjective Review of Systems: Reviewed and no additional remarkable complaints except groin abscess pain. Objective Appears: Anxious, Non-toxic, No Acute Distress. Head Exam: NORMAL INSPECTION, normocephalic. Eye Exam: Normal eye inspection, EOMI, PERRLA. Respiratory Exam: NORMAL BREATHING PATTERN, breath sounds clear bilaterally. Cardiovascular Exam: +S1, +S2. RRR. GI & Abdominal Exam: Round, soft, non-tender. Neurological Exam: Alert, Awake, Oriented x3. Psychiatric exam: Normal mood. Calm and cooperative. Skin exam: Left groin abscess. Assessment/Impression/Plan: 1.) Cellulitis/Groin Abscess -Pt started on Vancomycin. -For possible I&D with General surgery. -Infectious disease and surgery consults input appreciated. -For Pelvic CT to assess if there is drainable fluid in abscess area. -Morphine for pain. -Continue current tx. Present on Admission - Present on Admission Any Indicators Present on Admission: No Past Patient History - Infectious Disease Hx of Infectious Diseases: None - Past Medical History & Family History Past Medical History?: Yes - Past Social History Smoking Status: Never Smoked - CARDIAC Hx Cardiac Disorders: No - PULMONARY Hx Respiratory Disorders: No - NEUROLOGICAL Hx Neurological Disorder: No - HEENT Hx HEENT Problems: No - RENAL Hx Chronic Kidney Disease: No - ENDOCRINE/METABOLIC Hx Endocrine Disorders: No - HEMATOLOGICAL/ONCOLOGICAL Hx Human Immunodeficiency Virus (HIV): No - INTEGUMENTARY Hx Dermatological Problems: Yes (Pt has hidradenitis suppurativa) Other/Comment: hidradenitis suppurativa - MUSCULOSKELETAL/RHEUMATOLOGICAL Hx Falls: No Hx Fractures: Yes (right hand) - GASTROINTESTINAL Hx Gastrointestinal Disorders: No - GENITOURINARY/GYNECOLOGICAL Hx Genitourinary Disorders: No - PSYCHIATRIC Hx Psychophysiologic Disorder: No Hx Substance Use: No - SURGICAL HISTORY Hx Surgeries: Yes Other/Comment: Scrotal debridement. Axillary debridement. Multiple I&Ds. Right hand surgery. Right ankle Surgery - ANESTHESIA Hx Anesthesia: Yes Hx Anesthesia Reactions: No Hx Malignant Hyperthermia: No Meds Allergies/Adverse Reactions: Allergies Allergy/AdvReac Type Severity Reaction Status Date / Time shellfish derived Allergy ITCHING Verified 04/27/18 21:48 Results - Vital Signs Recent Vital Signs: Last Vital Signs Temp 97.7 F 06/30/18 23:53 Pulse 80 06/30/18 23:53 Resp 20 06/30/18 23:53 BP 115/73 06/30/18 23:53 Pulse Ox 98 06/30/18 23:53 - Labs Result Diagrams: 06/30/18 03:15 06/30/18 03:15 Labs: Laboratory Results - last 24 hr 06/30/18 06/30/18 06/30/18 03:15 03:15 10:09 WBC 13.5 H D RBC 4.50 Hgb 12.5 Hct 36.7 MCV 81.5 MCH 27.8 MCHC 34.1 RDW 16.2 H Plt Count 201 MPV 9.9 Neut % (Auto) 66.9 Lymph % (Auto) 22.6 [place] % (Auto) 8.3 Eos % (Auto) 1.3 Baso % (Auto) 0.9 Neut # (Auto) 9.0 H Lymph # (Auto) 3.1 [place] # (Auto) 1.1 H Eos # (Auto) 0.2 Baso # (Auto) 0.1 Sodium 137 Potassium 3.8 Chloride 105 Carbon Dioxide 22 Anion Gap 14 BUN 15 Creatinine 0.8 Est GFR ( Amer) > 60 Est GFR (Non-Af Amer) > 60 Random Glucose 124 H Hemoglobin A1c 5.8 Calcium 9.4 Total Bilirubin 0.5 AST 28 ALT 66 Alkaline Phosphatase 74 Total Protein 7.8 Albumin 3.9 Globulin 3.8 Albumin/Globulin Ratio 1.0 Assessment & Plan (1) Gluteal abscess Status: Acute (2) Hidradenitis suppurativa Status: Chronic (3) Scrotal abscess Status: Resolved Priority: Low (4) Cellulitis Status: Acute
--- NOTE | 2018-07-01 01:03 | CON ---
DATE: 06/30/2018 INFECTIOUS DISEASE CONSULT HISTORY OF PRESENT ILLNESS: The patient was seen on past admission. The patient is a 32-year-old male with long history of hidradenitis suppurativa. He has had multiple groin abscesses, axillary abscesses and basically gluteal abscesses. He was treated last time on IV daptomycin and meropenem with significant improvement and was sent home on oral Bactrim. The patient returned to the ER yesterday with history of increasing groin abscess with pain and swelling. He was supposed to have seen a plastic surgeon, but apparently the connection never occurred. The patient is alert, cooperative, and oriented to time and place. PAST MEDICAL HISTORY: His history includes abscesses related to hidradenitis suppurativa. PAST SURGICAL HISTORY: He has had multiple incisions and drainages. PHYSICAL EXAMINATION: HEENT: Within normal limits. NECK: Supple. LUNGS: Clear. HEART: Regular sinus rhythm. ABDOMEN: Soft. Positive bowel sounds. EXTREMITIES: He has inguinal abscess and perineal abscess and has had abscesses on the scrotum, also has axillary involvement bilaterally. LABORATORY DATA: Prior physician . The patient has also been seen by Surgery. Micro last time revealed Corynebacterium and Staphylococcus epidermidis. I doubt these were the main cause. White count is 13.5, hemoglobin is 12.5, platelet count is 201, polys are 56.9. AST 28, ALT 66, random glucose 164, creatinine 0.8, GFR is greater than 60. ASSESSMENT AND PLAN: The patient was on vancomycin and Zosyn. We will change him to daptomycin and Zosyn due to the past success with daptomycin on the previous admission. When I say success I mean improvement in the progress of hidradenitis. We will consider changing to meropenem within the next few days from Zosyn. Daniel Vaca MD
[2018-07-01] MEDS: Piperacillin/Tazobact 3.375 GM in Sodium Chloride 0.9% 100 ML IVPB SCH ×4 (03:59→22:29)
[2018-07-01] MEDS: Oxycodone/Acetaminophen 5/325 mg Tab PO PRN ×3 (04:04→19:48)
[2018-07-01 06:59] LABS: BLOOD UREA NITROGEN 14 mg/dl (9-20); CALCIUM 8.8 mg/dL (8.4-10.2); GFR NON-AFRICAN AMERICAN > 60
[2018-07-01 07:04] LABS: HEMOGLOBIN 12.2 g/dL (12.0-18.0); MEAN CELL VOLUME 83.3 fl (80.0-94.0); MEAN CORPUSCULAR HEMOGLOBIN 27.6 pg (27.0-31.0); MEAN CORPUSCULAR HGB CONC 33.1 g/dL (33.0-37.0); RBC 4.42 Mil/uL (4.40-5.90); RED CELL DISTRIBUTION WIDTH 16.8 % (11.5-14.5); WHITE BLOOD COUNT 8.7 K/uL (4.8-10.8)
--- NOTE | 2018-07-01 11:20 | CP.PCM.PN ---
<IsmaelKorina - Last Filed: 07/01/18 11:30> Subjective - Date & Time of Evaluation Date of Evaluation: 07/01/18 Time of Evaluation: 11:20 - Subjective Subjective: General Surgery Progress Note: Dr Prince 32 year old male patient seen and examined this am. Patient endorses groin and left sided gluteal pain today. He notes that he continues to use the warm compresses as instructed. Denies nausea/vomiting/fever/shortness of breath. Objective - Vital Signs/Intake and Output Vital Signs (last 24 hours): Temp Pulse Resp BP Pulse Ox 97.9 F 63 20 106/68 98 07/01/18 07:58 07/01/18 07:58 07/01/18 07:58 07/01/18 07:58 07/01/18 07:58 - Medications Medications: Current Medications Piperacillin Sod/Tazobactam (Sod 3.375 gm/ Sodium Chloride) 100 mls @ 100 mls/hr IVPB Q6 PATTI; Protocol Last Admin: 07/01/18 09:54 Dose: 100 mls/hr Daptomycin 560 mg/ Sodium (Chloride) 100 mls @ 100 mls/hr IV Q24H PATTI; Protocol Stop: 07/05/18 15:16 Last Admin: 06/30/18 17:40 Dose: 100 mls/hr Morphine Sulfate (Morphine) 2 mg IVP Q4 PRN PRN Reason: Pain, severe (8-10) Last Admin: 07/01/18 10:27 Dose: 2 mg Oxycodone/Acetaminophen (Percocet 5/325 Mg Tab) 1 tab PO Q6 PRN PRN Reason: Pain, moderate (4-7) Stop: 07/03/18 18:08 Last Admin: 07/01/18 04:04 Dose: 1 tab - Labs Labs: 07/01/18 06:25 07/01/18 06:25 - Constitutional Appears: Non-toxic, No Acute Distress - Head Exam Head Exam: ATRAUMATIC, NORMOCEPHALIC - Eye Exam Eye Exam: Normal appearance - ENT Exam ENT Exam: Mucous Membranes Moist - Respiratory Exam Respiratory Exam: NORMAL BREATHING PATTERN - Cardiovascular Exam Cardiovascular Exam: REGULAR RHYTHM - GI/Abdominal Exam GI & Abdominal Exam: Soft. absent: Tenderness - Rectal Exam Additional comments: Indurated left gluteal area, tenderness to palpation, no drainage appreciated Edema appreciated to peritoneal area - Neurological Exam Neurological Exam: Alert, Awake, Oriented x3 - Psychiatric Exam Psychiatric exam: Normal Affect, Normal Mood Assessment and Plan - Assessment and Plan (Free Text) Assessment: 32 year old male with gluteal abscess secondary to hidradenitis Plan: - Regular diet - Dapto/Zosyn per ID recs - Pelvic CT; no drainable abscess - Pain control - No surgical intervention at this time - C/w warm compresses - Further recs per Dr. Suresh Guevara PGY1 <Hernesto Prince - Last Filed: 07/01/18 11:57> Subjective - Subjective Subjective: Patient was seen and examined at the bedside. Agree with resident's note above. Patient states that he states to have drainage from the area of hydradenitis to the buttocks. Objective - Vital Signs/Intake and Output Vital Signs (last 24 hours): Temp Pulse Resp BP Pulse Ox 97.9 F 63 20 106/68 98 07/01/18 07:58 07/01/18 07:58 07/01/18 07:58 07/01/18 07:58 07/01/18 07:58 - Medications Medications: Current Medications Piperacillin Sod/Tazobactam (Sod 3.375 gm/ Sodium Chloride) 100 mls @ 100 mls/hr IVPB Q6 PATTI; Protocol Last Admin: 07/01/18 09:54 Dose: 100 mls/hr Daptomycin 560 mg/ Sodium (Chloride) 100 mls @ 100 mls/hr IV Q24H PATTI; Protocol Stop: 07/05/18 15:16 Last Admin: 06/30/18 17:40 Dose: 100 mls/hr Morphine Sulfate (Morphine) 2 mg IVP Q4 PRN PRN Reason: Pain, severe (8-10) Last Admin: 07/01/18 10:27 Dose: 2 mg Oxycodone/Acetaminophen (Percocet 5/325 Mg Tab) 1 tab PO Q6 PRN PRN Reason: Pain, moderate (4-7) Stop: 07/03/18 18:08 Last Admin: 07/01/18 04:04 Dose: 1 tab - Labs Labs: 07/01/18 06:25 07/01/18 06:25 - Rectal Exam Additional comments: minimal drainage Assessment and Plan - Assessment and Plan (Free Text) Assessment: 32 y.o. male with hydradenitis of the gluteal area Plan: - repeat labs in am - Will follow
--- NOTE | 2018-07-02 01:35 | CP.PCM.PN ---
Subjective - Date & Time of Evaluation Date of Evaluation: 07/01/18 Time of Evaluation: 10:00 - Subjective Subjective: Pt seen and assessed at bedside. States a mild relief in pain at this time. Due to the CT results, I&D is not indicated at present. The groin abscess is actively draining, continue to monitor. Subjective Review of Systems: Reviewed and no additional remarkable complaints except groin abscess pain. Objective Appears: Anxious, Non-toxic, No Acute Distress. Head Exam: NORMAL INSPECTION, normocephalic. Eye Exam: Normal eye inspection, EOMI, PERRLA. Respiratory Exam: NORMAL BREATHING PATTERN, breath sounds clear bilaterally. Cardiovascular Exam: +S1, +S2. RRR. GI & Abdominal Exam: Round, soft, non-tender. Neurological Exam: Alert, Awake, Oriented x3. Psychiatric exam: Normal mood. Calm and cooperative. Skin exam: Left groin abscess, actively draining purulent fluid mixed with blood. Assessment/Impression/Plan: 1.) Cellulitis/Groin Abscess -Pelvic CT showed there is not enough drainable fluid in abscess area. -No I&D scheduled for this time. -The groin abscess is currently draining purulent fluid, as well as blood. -Morphine for pain. Percocet for breakthrough pain. -Continue current tx. Objective - Vital Signs/Intake and Output Vital Signs (last 24 hours): Temp Pulse Resp BP Pulse Ox 98.1 F 85 20 121/66 97 07/01/18 23:46 07/01/18 23:46 07/01/18 23:46 07/01/18 23:46 07/01/18 23:46 - Medications Medications: Current Medications Piperacillin Sod/Tazobactam (Sod 3.375 gm/ Sodium Chloride) 100 mls @ 100 mls/hr IVPB Q6 PATTI; Protocol Last Admin: 07/01/18 22:29 Dose: 100 mls/hr Daptomycin 560 mg/ Sodium (Chloride) 100 mls @ 100 mls/hr IV Q24H PATTI; Protocol Stop: 07/05/18 15:16 Last Admin: 07/01/18 16:46 Dose: 100 mls/hr Morphine Sulfate (Morphine) 2 mg IVP Q4 PRN PRN Reason: Pain, severe (8-10) Last Admin: 07/01/18 22:28 Dose: 2 mg Oxycodone/Acetaminophen (Percocet 5/325 Mg Tab) 1 tab PO Q6 PRN PRN Reason: Pain, moderate (4-7) Stop: 07/03/18 18:08 Last Admin: 07/01/18 19:48 Dose: 1 tab - Labs Labs: 07/01/18 06:25 07/01/18 06:25 Assessment and Plan (1) Gluteal abscess Status: Acute (2) Hidradenitis suppurativa Status: Chronic (3) Scrotal abscess Status: Resolved (4) Cellulitis Status: Acute
[2018-07-02] MEDS: Piperacillin/Tazobact 3.375 GM in Sodium Chloride 0.9% 100 ML IVPB SCH ×4 (04:54→22:06)
[2018-07-02 06:36] LABS: BASO # 0.1 K/uL (0.0-0.2); BASO % 1.2 % (0.0-2.0); EOS # 0.3 K/uL (0.0-0.7); EOS % 3.7 % (0.0-4.0); HEMOGLOBIN 11.9 g/dL (12.0-18.0); LYMPH # 2.4 K/uL (1.0-4.3); LYMPH % 29.1 % (20.0-40.0); MEAN CELL VOLUME 82.1 fl (80.0-94.0); MEAN CORPUSCULAR HEMOGLOBIN 27.5 pg (27.0-31.0); MEAN CORPUSCULAR HGB CONC 33.5 g/dL (33.0-37.0); MEAN PLATELET VOLUME 9.9 fl (7.2-11.7); MONO # 0.7 K/uL (0.0-0.8); MONO % 8.2 % (0.0-10.0); NEUT # 4.8 K/uL (1.8-7.0); NEUT % 57.8 % (50.0-75.0); NRBC % 0.2 % (0.0-0.0); RBC 4.33 Mil/uL (4.40-5.90); RED CELL DISTRIBUTION WIDTH 16.3 % (11.5-14.5); WHITE BLOOD COUNT 8.2 K/uL (4.8-10.8)
[2018-07-02 07:04] LABS: ALBUMIN 3.7 g/dL (3.5-5.0); ALT/SGPT 52 U/L (21-72); AST/SGOT 26 U/L (17-59); BLOOD UREA NITROGEN 9 mg/dl (9-20); GFR NON-AFRICAN AMERICAN > 60
[2018-07-02] MEDS: Oxycodone/Acetaminophen 5/325 mg Tab PO PRN ×3 (08:57→22:11)
--- NOTE | 2018-07-02 10:36 | CP.PCM.PN ---
Subjective - Date & Time of Evaluation Date of Evaluation: 07/02/18 Time of Evaluation: 10:29 - Subjective Subjective: General Surgery Pt seen and examined this AM with Dr. Lilly. Pt reports the pain has improved since yesterday and that he has been using warm compresses. He now reports having pain and drainage from his left axillary region. Afebrile. Labs and vitals noted PE Gen: Pt laying in bed in NAD Skin: Indurated left gluteal area, tenderness to palpation, (+) drainage, (-) fluctuance, (+) Edema appreciated to peritoneal area. Left axillary region: (+) scant purulent drainage, (+) 6cm area of induration, (+) erythema extending to mid bicep Resp: (-) labored breathing, (-) stridor A/P Hidradenitis Suppurativa of perineal/gluteal region and now in the left axillary region Continue IV abx as per ID warm compresses No surgical intervention at this time. Objective - Vital Signs/Intake and Output Vital Signs (last 24 hours): Temp Pulse Resp BP Pulse Ox 97.9 F 71 20 108/69 99 07/02/18 08:11 07/02/18 08:11 07/02/18 08:11 07/02/18 08:11 07/02/18 08:11 - Medications Medications: Current Medications Piperacillin Sod/Tazobactam (Sod 3.375 gm/ Sodium Chloride) 100 mls @ 100 mls/hr IVPB Q6 PATTI; Protocol Last Admin: 07/02/18 09:13 Dose: 100 mls/hr Daptomycin 560 mg/ Sodium (Chloride) 100 mls @ 100 mls/hr IV Q24H PATTI; Protocol Stop: 07/05/18 15:16 Last Admin: 07/01/18 16:46 Dose: 100 mls/hr Morphine Sulfate (Morphine) 2 mg IVP Q4 PRN PRN Reason: Pain, severe (8-10) Last Admin: 07/02/18 07:22 Dose: 2 mg Oxycodone/Acetaminophen (Percocet 5/325 Mg Tab) 1 tab PO Q6 PRN PRN Reason: Pain, moderate (4-7) Stop: 07/03/18 18:08 Last Admin: 07/02/18 08:57 Dose: 1 tab - Labs Labs: 07/02/18 05:55 07/02/18 05:55
[2018-07-03] MEDS: Piperacillin/Tazobact 3.375 GM in Sodium Chloride 0.9% 100 ML IVPB SCH ×4 (04:33→21:07)
[2018-07-03] MEDS: Oxycodone/Acetaminophen 5/325 mg Tab PO PRN ×2 (06:40→18:38)
--- NOTE | 2018-07-03 09:50 | CP.PCM.PN ---
Subjective - Date & Time of Evaluation Date of Evaluation: 07/03/18 Time of Evaluation: 09:48 - Subjective Subjective: General Surgery Pt seen and examined this AM with DIANE Wynne. Pt reports he had a lot of drainage from his gluteal/perineal abscess last night and drainage from his left axilla. He states the left axilla was causing him a lot of pain and discomfort last night. He also reports noticing some blood in his previous scrotal surgical incision. He states he has been ambulatory and tolerating diet. No new labs. Afebrile PE Gen: Pt laying in bed in NAD. Skin: Indurated left gluteal area, (+) minimal tenderness to palpation, (+) drainage, (-) fluctuance, (+) improved edema appreciated to peritoneal area. Left axillary region: (+) scant purulent drainage, (+) 6cm area of induration, (+) erythema extending to mid bicep, (+) tender. Right scrotal region: (+) previous surgical incision with drops of blood from top of healing incision. (+) dime sized area of induration above incisional scar. (-) purulent drainage. Cardio: s1s2 RRR Resp: CTA bilaterally A/P Hidradenitis Suppurativa of perineal/gluteal region and now in the left axillary region Continue IV abx as per ID warm compresses No surgical intervention at this time. Surgery will sign off. Objective - Vital Signs/Intake and Output Vital Signs (last 24 hours): Temp Pulse Resp BP Pulse Ox 97.7 F 85 20 95/64 L 98 07/03/18 07:41 07/03/18 07:41 07/03/18 07:41 07/03/18 07:41 07/03/18 07:41 - Medications Medications: Current Medications Piperacillin Sod/Tazobactam (Sod 3.375 gm/ Sodium Chloride) 100 mls @ 100 mls/hr IVPB Q6 PATTI; Protocol Last Admin: 07/03/18 09:00 Dose: 100 mls/hr Daptomycin 560 mg/ Sodium (Chloride) 100 mls @ 100 mls/hr IV Q24H PATTI; Protocol Stop: 07/05/18 15:16 Last Admin: 07/02/18 16:29 Dose: 100 mls/hr Morphine Sulfate (Morphine) 2 mg IVP Q4 PRN PRN Reason: Pain, severe (8-10) Last Admin: 07/03/18 08:29 Dose: 2 mg Oxycodone/Acetaminophen (Percocet 5/325 Mg Tab) 1 tab PO Q6 PRN PRN Reason: Pain, moderate (4-7) Stop: 07/03/18 18:08 Last Admin: 07/03/18 06:40 Dose: 1 tab - Labs Labs: 07/02/18 05:55 07/02/18 05:55
--- NOTE | 2018-07-03 13:45 | CP.PCM.PN ---
Subjective - Date & Time of Evaluation Date of Evaluation: 07/03/18 Time of Evaluation: 13:41 - Subjective Subjective: id note will be difficult to maintain treatment as he only seems to improve c iv cubicin will add iv steroids for a few days Objective - Vital Signs/Intake and Output Vital Signs (last 24 hours): Temp Pulse Resp BP Pulse Ox 97.7 F 85 20 95/64 L 98 07/03/18 07:41 07/03/18 07:41 07/03/18 07:41 07/03/18 07:41 07/03/18 07:41 - Medications Medications: Current Medications Piperacillin Sod/Tazobactam (Sod 3.375 gm/ Sodium Chloride) 100 mls @ 100 mls/hr IVPB Q6 PATTI; Protocol Last Admin: 07/03/18 09:00 Dose: 100 mls/hr Daptomycin 560 mg/ Sodium (Chloride) 100 mls @ 100 mls/hr IV Q24H PATTI; Protocol Stop: 07/05/18 15:16 Last Admin: 07/02/18 16:29 Dose: 100 mls/hr Morphine Sulfate (Morphine) 2 mg IVP Q4 PRN PRN Reason: Pain, severe (8-10) Last Admin: 07/03/18 12:31 Dose: 2 mg Oxycodone/Acetaminophen (Percocet 5/325 Mg Tab) 1 tab PO Q6 PRN PRN Reason: Pain, moderate (4-7) Stop: 07/03/18 18:08 Last Admin: 07/03/18 06:40 Dose: 1 tab - Labs Labs: 07/02/18 05:55 07/02/18 05:55
--- NOTE | 2018-07-03 14:05 | CP.PCM.PN ---
Subjective - Date & Time of Evaluation Date of Evaluation: 07/02/18 Time of Evaluation: 11:00 - Subjective Subjective: patient seen and examined at bedside. Interim events noted pain of area of concern though controlled with meds denies cp/sob/fever/chills. available diagnostic data reviewed Review of Systems All systems: reviewed and no additional remarkable complaints except mentioned above Objective Vital Signs Stable - Constitutional Appears: Non-toxic, No Acute Distress Head Exam: NORMAL INSPECTION Eye Exam: Normal appearance Respiratory Exam: NORMAL BREATHING PATTERN Cardiovascular Exam: +S1, +S2 GI & Abdominal Exam: Soft Neurological Exam: Alert, Awake Psychiatric exam: Normal Affect, Normal Mood Skin Exam: Normal Color, Warm Assessment and Plan monitor vitals monitor labs Cont meds Cont tx consultants appreciated input may need elongated abx course rest of plan as ordered Assessment and Plan (1) Cellulitis Status: Acute (2) Hidradenitis suppurativa Status: Chronic
--- NOTE | 2018-07-03 14:06 | CP.PCM.PN ---
Subjective - Date & Time of Evaluation Date of Evaluation: 07/03/18 Time of Evaluation: 11:00 - Subjective Subjective: patient seen and examined at bedside. Interim events noted no complaints, pain well controlled denies cp/sob/fever/chills. available diagnostic data reviewed Review of Systems All systems: reviewed and no additional remarkable complaints except mentioned above Objective Vital Signs Stable - Constitutional Appears: Non-toxic, No Acute Distress Head Exam: NORMAL INSPECTION Eye Exam: Normal appearance Respiratory Exam: NORMAL BREATHING PATTERN Cardiovascular Exam: +S1, +S2 GI & Abdominal Exam: Soft Neurological Exam: Alert, Awake Psychiatric exam: Normal Affect, Normal Mood Skin Exam: Normal Color, Warm Assessment and Plan monitor vitals monitor labs Cont meds Cont tx consultants appreciated input may need elongated abx course rest of plan as ordered Objective - Vital Signs/Intake and Output Vital Signs (last 24 hours): Temp Pulse Resp BP Pulse Ox 97.7 F 85 20 95/64 L 98 07/03/18 07:41 07/03/18 07:41 07/03/18 07:41 07/03/18 07:41 07/03/18 07:41 - Medications Medications: Current Medications Piperacillin Sod/Tazobactam (Sod 3.375 gm/ Sodium Chloride) 100 mls @ 100 mls/hr IVPB Q6 PATTI; Protocol Last Admin: 07/03/18 09:00 Dose: 100 mls/hr Daptomycin 560 mg/ Sodium (Chloride) 100 mls @ 100 mls/hr IV Q24H PATTI; Protocol Stop: 07/05/18 15:16 Last Admin: 07/02/18 16:29 Dose: 100 mls/hr Methylprednisolone (Solu-Medrol) 60 mg IV Q12 PATTI Morphine Sulfate (Morphine) 2 mg IVP Q4 PRN PRN Reason: Pain, severe (8-10) Last Admin: 07/03/18 12:31 Dose: 2 mg Oxycodone/Acetaminophen (Percocet 5/325 Mg Tab) 1 tab PO Q6 PRN PRN Reason: Pain, moderate (4-7) Stop: 07/03/18 18:08 Last Admin: 07/03/18 06:40 Dose: 1 tab - Labs Labs: 07/02/18 05:55 07/02/18 05:55 Assessment and Plan (1) Cellulitis Status: Acute (2) Hidradenitis suppurativa Status: Chronic
[2018-07-03] MEDS ORDERED: methylPREDNISolone 60 MG in Sodium Chloride 0.9% 50 ML IVPB SCH (21:00)
[2018-07-04] MEDS: Oxycodone/Acetaminophen 5/325 mg Tab PO PRN ×3 (01:42→20:24)
[2018-07-04] MEDS: Piperacillin/Tazobact 3.375 GM in Sodium Chloride 0.9% 100 ML IVPB SCH ×4 (03:47→21:20)
--- NOTE | 2018-07-04 11:55 | CP.PCM.PN ---
Subjective - Date & Time of Evaluation Date of Evaluation: 07/04/18 Time of Evaluation: 11:55 - Subjective Subjective: patient seen and examined at bedside. Interim events noted no complaints, pain well controlled, states improvement with steroids denies cp/sob/fever/chills. available diagnostic data reviewed Review of Systems All systems: reviewed and no additional remarkable complaints except mentioned above Objective Vital Signs Stable - Constitutional Appears: Non-toxic, No Acute Distress Head Exam: NORMAL INSPECTION Eye Exam: Normal appearance Respiratory Exam: NORMAL BREATHING PATTERN Cardiovascular Exam: +S1, +S2 GI & Abdominal Exam: Soft Neurological Exam: Alert, Awake Psychiatric exam: Normal Affect, Normal Mood Skin Exam: Normal Color, Warm Assessment and Plan monitor vitals monitor labs Cont meds Cont tx consultants appreciated input may need elongated abx course rest of plan as ordered Objective - Vital Signs/Intake and Output Vital Signs (last 24 hours): Temp Pulse Resp BP Pulse Ox 98.2 F 70 18 127/84 97 07/04/18 00:28 07/04/18 00:28 07/04/18 00:28 07/04/18 00:28 07/04/18 00:28 - Medications Medications: Current Medications Piperacillin Sod/Tazobactam (Sod 3.375 gm/ Sodium Chloride) 100 mls @ 100 mls/hr IVPB Q6 PATTI; Protocol Last Admin: 07/04/18 10:27 Dose: 100 mls/hr Daptomycin 560 mg/ Sodium (Chloride) 100 mls @ 100 mls/hr IV Q24H PATTI; Protocol Stop: 07/05/18 15:16 Last Admin: 07/03/18 16:31 Dose: 100 mls/hr Methylprednisolone (Solu-Medrol) 60 mg IV Q12 PATTI Last Admin: 07/04/18 10:30 Dose: 60 mg Morphine Sulfate (Morphine) 2 mg IVP Q4 PRN PRN Reason: Pain, severe (8-10) Last Admin: 07/04/18 10:27 Dose: 2 mg Oxycodone/Acetaminophen (Percocet 5/325 Mg Tab) 1 tab PO Q6 PRN PRN Reason: Pain, moderate (4-7) Stop: 07/06/18 20:04 Last Admin: 07/04/18 08:41 Dose: 1 tab - Labs Labs: 07/02/18 05:55 07/02/18 05:55 Assessment and Plan (1) Cellulitis Status: Acute (2) Hidradenitis suppurativa Status: Chronic
[2018-07-05] MEDS: Piperacillin/Tazobact 3.375 GM in Sodium Chloride 0.9% 100 ML IVPB SCH ×2 (03:02→09:39)
[2018-07-05] MEDS: Oxycodone/Acetaminophen 5/325 mg Tab PO PRN (16:23)
[2018-07-05] MEDS ORDERED: Piperacillin/Tazobact 3.375 GM in Sodium Chloride 0.9% 100 ML IVPB SCH (17:50)
[2018-07-06] MEDS: Piperacillin/Tazobact 3.375 GM in Sodium Chloride 0.9% 100 ML IVPB SCH ×4 (00:18→18:45)
[2018-07-06] MEDS: Oxycodone/Acetaminophen 5/325 mg Tab PO PRN ×3 (00:22→19:52)
--- NOTE | 2018-07-06 11:01 | CP.PCM.PN ---
Subjective - Date & Time of Evaluation Date of Evaluation: 07/05/08 Time of Evaluation: 11:00 - Subjective Subjective: patient seen and examined at bedside. Interim events noted no complaints, pain well controlled denies cp/sob/fever/chills. available diagnostic data reviewed Review of Systems All systems: reviewed and no additional remarkable complaints except mentioned above Objective Vital Signs Stable - Constitutional Appears: Non-toxic, No Acute Distress Head Exam: NORMAL INSPECTION Eye Exam: Normal appearance Respiratory Exam: NORMAL BREATHING PATTERN Cardiovascular Exam: +S1, +S2 GI & Abdominal Exam: Soft Neurological Exam: Alert, Awake Psychiatric exam: Normal Affect, Normal Mood Skin Exam: Normal Color, Warm Assessment and Plan monitor vitals monitor labs Cont meds Cont tx consultants appreciated input c/w steroids may need elongated abx course rest of plan as ordered Assessment and Plan (1) Cellulitis Status: Acute (2) Hidradenitis suppurativa Status: Chronic
--- NOTE | 2018-07-06 23:05 | CP.PCM.PN ---
Subjective - Date & Time of Evaluation Date of Evaluation: 07/06/18 Time of Evaluation: 10:00 - Subjective Subjective: Pt seen and assessed at bedside. States pain and lesions are greatly improving. Reports drainage from groin being less in the past 48 hours. Subjective Review of Systems: Reviewed and no additional remarkable complaints except groin abscess pain. Objective Appears: Anxious, Non-toxic, No Acute Distress. Head Exam: NORMAL INSPECTION, normocephalic. Eye Exam: Normal eye inspection, EOMI, PERRLA. Respiratory Exam: NORMAL BREATHING PATTERN, breath sounds clear bilaterally. Cardiovascular Exam: +S1, +S2. RRR. GI & Abdominal Exam: Round, soft, non-tender. Neurological Exam: Alert, Awake, Oriented x3. Psychiatric exam: Normal mood. Calm and cooperative. Skin exam: Healing left groin abscess. Assessment/Impression/Plan: 1.) Groin Abscess/Hidradenitis Suppurativa -Pt currently shows great improvement on Daptomycin. -Continue IV solumedrol 60 mg BID. -Consults input appreciated. -Skin hygiene/infection control. -Consider switching antibiotics to PO (if possible, and dependent on culture) in anticipation of potential discharge. Can give oral steroids on discharge. Objective - Vital Signs/Intake and Output Vital Signs (last 24 hours): Temp Pulse Resp BP Pulse Ox 97.8 F 63 20 118/73 94 L 07/06/18 17:00 07/06/18 17:00 07/06/18 17:00 07/06/18 17:00 07/06/18 17:00 - Medications Medications: Current Medications Daptomycin 560 mg/ Sodium (Chloride) 100 mls @ 100 mls/hr IV Q24H PATTI; Protocol Stop: 07/10/18 17:50 Last Admin: 07/06/18 17:02 Dose: 100 mls/hr Piperacillin Sod/Tazobactam (Sod 3.375 gm/ Sodium Chloride) 100 mls @ 100 mls/hr IVPB 0000,0600,1200,1800 [facility]; Protocol Last Admin: 07/06/18 18:45 Dose: 100 mls/hr Methylprednisolone (Solu-Medrol) 60 mg IV Q12 PATTI Last Admin: 07/06/18 21:05 Dose: 60 mg Morphine Sulfate (Morphine) 2 mg IVP Q4 PRN PRN Reason: Pain, severe (8-10) Last Admin: 07/06/18 22:47 Dose: 2 mg - Labs Labs: 07/02/18 05:55 07/02/18 05:55 Assessment and Plan (1) Gluteal abscess Status: Acute (2) Hidradenitis suppurativa Status: Chronic (3) Scrotal abscess Status: Resolved (4) Cellulitis Status: Acute
[2018-07-07] MEDS: Piperacillin/Tazobact 3.375 GM in Sodium Chloride 0.9% 100 ML IVPB SCH ×2 (05:24)
[2018-07-07 08:11] VITALS: BP 112/69; PULSE 64; RESP 20; TEMP 97.5; O2SAT 99
[2018-07-07] MEDS ORDERED: Oxycodone/Acetaminophen 5/325 mg Tab PO PRN (11:23)
--- NOTE | 2018-07-09 02:49 | CP.PCM.DIS ---
Provider - Provider Date of Admission: 06/30/18 03:14 Attending physician: Theodore Hitchcock MD Consults: 06/30/18 02:43 Surgery [General Surgery Consult] Stat Comment: Consulting Provider: Isrrael Nunez Consulting Physician: Isrrael Nunez Reason for Consult: recurrent abscesses 06/30/18 03:13 Infectious Disease Consult Stat Comment: Consulting Provider: Daniel Vaca Consulting Physician: Daniel Vaca Reason for Consult: recurrent abscesses Time Spent in preparation of Discharge (in minutes): 30 Diagnosis - Discharge Diagnosis (1) Gluteal abscess Status: Acute (2) Hidradenitis suppurativa Status: Chronic (3) Scrotal abscess Status: Resolved Priority: Low (4) Cellulitis Status: Acute Hospital Course - Lab Results Lab Results: Micro Results 06/30/18 03:00 Blood-Venous Blood Culture - Final NO GROWTH AFTER 5 DAYS 06/30/18 03:00 Blood-Venous Gram Stain - Final TEST NOT PERFORMED 06/30/18 03:15 Blood-Venous Blood Culture - Final NO GROWTH AFTER 5 DAYS 06/30/18 03:15 Blood-Venous Gram Stain - Final TEST NOT PERFORMED Most Recent Lab Values WBC 8.2 K/uL (4.8-10.8) 07/02/18 05:55 RBC 4.33 Mil/uL (4.40-5.90) L 07/02/18 05:55 Hgb 11.9 g/dL (12.0-18.0) L 07/02/18 05:55 Hct 35.6 % (35.0-51.0) 07/02/18 05:55 MCV 82.1 fl (80.0-94.0) 07/02/18 05:55 MCH 27.5 pg (27.0-31.0) 07/02/18 05:55 MCHC 33.5 g/dL (33.0-37.0) 07/02/18 05:55 RDW 16.3 % (11.5-14.5) H 07/02/18 05:55 Plt Count 177 K/uL (130-400) 07/02/18 05:55 MPV 9.9 fl (7.2-11.7) 07/02/18 05:55 Neut % (Auto) 57.8 % (50.0-75.0) 07/02/18 05:55 Lymph % (Auto) 29.1 % (20.0-40.0) 07/02/18 05:55 [place] % (Auto) 8.2 % (0.0-10.0) 07/02/18 05:55 Eos % (Auto) 3.7 % (0.0-4.0) 07/02/18 05:55 Baso % (Auto) 1.2 % (0.0-2.0) 07/02/18 05:55 Neut # (Auto) 4.8 K/uL (1.8-7.0) 07/02/18 05:55 Lymph # (Auto) 2.4 K/uL (1.0-4.3) 07/02/18 05:55 [place] # (Auto) 0.7 K/uL (0.0-0.8) 07/02/18 05:55 Eos # (Auto) 0.3 K/uL (0.0-0.7) 07/02/18 05:55 Baso # (Auto) 0.1 K/uL (0.0-0.2) 07/02/18 05:55 Sodium 138 mmol/l (132-148) 07/02/18 05:55 Potassium 4.0 MMOL/L (3.6-5.0) 07/02/18 05:55 Chloride 106 mmol/L (98-107) 07/02/18 05:55 Carbon Dioxide 24 mmol/L (22-30) 07/02/18 05:55 Anion Gap 12 (10-20) 07/02/18 05:55 BUN 9 mg/dl (9-20) 07/02/18 05:55 Creatinine 0.8 mg/dl (0.8-1.5) 07/02/18 05:55 Est GFR ( Amer) > 60 07/02/18 05:55 Est GFR (Non-Af Amer) > 60 07/02/18 05:55 Random Glucose 122 mg/dL (75-110) H 07/02/18 05:55 Hemoglobin A1c 5.8 % (4.2-6.5) 06/30/18 10:09 Calcium 9.0 mg/dL (8.4-10.2) 07/02/18 05:55 Total Bilirubin 0.5 mg/dl (0.2-1.3) 07/02/18 05:55 AST 26 U/L (17-59) 07/02/18 05:55 ALT 52 U/L (21-72) 07/02/18 05:55 Alkaline Phosphatase 70 U/L (38-126) 07/02/18 05:55 Total Protein 7.4 G/DL (6.3-8.2) 07/02/18 05:55 Albumin 3.7 g/dL (3.5-5.0) 07/02/18 05:55 Globulin 3.6 gm/dL (2.2-3.9) 07/02/18 05:55 Albumin/Globulin Ratio 1.0 (1.0-2.1) 07/02/18 05:55 - Hospital Course Hospital Course: Pt was admitted for left groin abscess secondary to hidradenitis suppurativa. He was treated with IV antibiotics. The abscess drained spontaneously. Infectious disease was consulted for IV abx mgmt. After clinically improving, the pt was discharged home and advised to follow up with infectious disease. Discharge Exam - Head Exam Head Exam: ATRAUMATIC, NORMOCEPHALIC - Eye Exam Eye Exam: Normal appearance Pupil Exam: NORMAL ACCOMODATION - ENT Exam ENT Exam: Mucous Membranes Moist - Neck Exam Neck exam: Full Rom - Respiratory Exam Respiratory Exam: NORMAL BREATHING PATTERN - Cardiovascular Exam Cardiovascular Exam: REGULAR RHYTHM - GI/Abdominal Exam GI & Abdominal Exam: Normal Bowel Sounds - Extremities Exam Extremities exam: full ROM - Back Exam Back exam: NORMAL INSPECTION - Neurological Exam Neurological exam: Alert - Psychiatric Exam Psychiatric exam: Normal Affect, Normal Mood - Skin Skin Exam: Dry, Warm Additional comments: healing abscess site left groin. Discharge Plan - Discharge Medications Prescriptions: Cefuroxime Axetil [Cefuroxime] 500 mg PO BID #28 tablet Methylprednisolone [Medrol Dose Pack (21 tabs)] 4 mg PO DAILY #21 mg - Follow Up Plan Condition: STABLE Disposition: HOME/ ROUTINE Instructions: Hidradenitis Suppurativa Additional Instructions: follow up with primary MD 1 week Referrals: Isrrael Nunez MD [Staff Provider] - Nilay Langston MD [Staff Provider] - Daniel Vaca MD [Medical Doctor] -
== END 2018-07-07 13:24 | disposition home or self-care (01) | DRG 277 ==
LOC: H.ER 23:15 → H.ERHOLD 06-30 03:14 → H.MEDSURG1 06-30 04:33
PROVIDERS: ADMIT Family Medicine; ATTEND Family Medicine
DX: L02.31 Cutaneous abscess of buttock (principal); L02.214 Cutaneous abscess of groin; L73.2 Hidradenitis suppurativa; L03.317 Cellulitis of buttock; N49.2 Inflammatory disorders of scrotum; B95.7 Other staphylococcus as the cause of diseases classified elsewhere; D72.829 Elevated white blood cell count, unspecified; F17.200 Nicotine dependence, unspecified, uncomplicated; Z91.013 Allergy to seafood

== ENCOUNTER 2018-07-30 20:20 | Inpatient (IN) | payer OTHER ==
[2018-07-30 20:21] VITALS: BMI 30.4
[2018-07-30] MEDS ORDERED: Sodium Chloride 0.9% 1,000 ML IV STA (22:01)
[2018-07-30 22:49] LABS: VENOUS BLOOD GAS BASE EXCESS 0.3 mmol/L (0.0-2.0); VENOUS BLOOD GAS PCO2 33 mmHg (40-60); VENOUS BLOOD GAS PO2 71 mm/Hg (30-55); VENOUS BLOOD PH 7.46 (7.32-7.43)
--- NOTE | 2018-07-30 22:49 | ED PDOC ---
HPI: Skin/Bite Injury Time Seen by Provider: 07/30/18 21:49 Chief Complaint (Nursing): Abnormal Skin Integrity Chief Complaint (Provider): Abscesses History Per: Patient History/Exam Limitations: no limitations Onset/Duration Of Symptoms: Days (x1) Current Symptoms Are (Timing): Still Present Additional Complaint(s): 32 year old male presents to the ED for evaluation of an abscess to his right testicle and three abscesses to his left axilla onset yesterday which became painful today. Patient reports he has been admitted for similar abscesses in the past, his last admission for drainage of a right testicular abscess. Past Medical History Reviewed: Historical Data, Nursing Documentation, Vital Signs Vital Signs: Last Vital Signs Temp 99 F 07/30/18 20:51 Pulse 91 H 07/30/18 20:51 Resp 16 07/30/18 20:51 BP 154/93 H 07/30/18 20:51 Pulse Ox 98 07/30/18 20:51 Primary Care Provider: FAMILY PROVIDER,NO - Medical History PMH: Fractures (right hand) Denies: HIV, Chronic Kidney Disease Other PMH: hx of recurrent abscesses - Surgical History Other surgeries: abscess I&D - Family History Family History: States: Unknown Family Hx - Social History Current smoker - smoking cessation education provided: No Alcohol: None Drugs: Denies - Home Medications Home Medications: Ambulatory Orders Medication Instructions Recorded No Known Home Med 07/31/18 - Allergies Allergies/Adverse Reactions: Allergies Allergy/AdvReac Type Severity Reaction Status Date / Time shellfish derived Allergy ITCHING Verified 04/27/18 21:48 Review of Systems ROS Statement: Except As Marked, All Systems Reviewed And Found Negative Skin: Positive for: Other (three abscesses to left axilla and one abscess to right testicle, painful) Physical Exam - Reviewed Nursing Documentation Reviewed: Yes Vital Signs Reviewed: Yes - Physical Exam Appears: Positive for: No Acute Distress Head Exam: Positive for: ATRAUMATIC, NORMOCEPHALIC Skin: Positive for: Warm, Dry Eye Exam: Positive for: Normal appearance Neck: Positive for: Normal, Painless ROM, Supple Cardiovascular/Chest: Positive for: Regular Rate, Rhythm Respiratory: Positive for: Normal Breath Sounds. Negative for: Respiratory Distress Gastrointestinal/Abdominal: Positive for: Normal Exam, Soft. Negative for: Tenderness Male Genital Exam: Positive for: other (left groin with a 1cm x 1cm area of erythema, swelling, and small .25cm second area of swelling with warmth, no drainage noted) Extremity: Positive for: Normal ROM (left upper extremity), Other (3 abscesses to left axilla: largest about 1cm x 0.5cm with small area of central fluctuance, no drainage noted) Neurological/Psych: Positive for: Awake, Alert, Oriented (x3). Negative for: Motor/Sensory Deficits - Laboratory Results Result Diagrams: 08/01/18 06:59 07/30/18 22:30 - ECG O2 Sat by Pulse Oximetry: 98 (RA) Pulse Ox Interpretation: Normal Medical Decision Making Medical Decision Making: Time: 2212 Impression: patient with recurrent abscesses Plan: --Start labs including blood cultures --Right testicular US --Antibiotics --Morphine for pain control --Most likely admission with surgery consult Scribe Attestation: Documented by Quyen Delatorre, acting as a scribe for Kimmy Borden MD. Provider Scribe Attestation: All medical record entries made by the Scribe were at my direction and personally dictated by me. I have reviewed the chart and agree that the record accurately reflects my personal performance of the history, physical exam, medical decision making, and the department course for this patient. I have also personally directed, reviewed, and agree with the discharge instructions and disposition. Disposition - Clinical Impression Clinical Impression: Abscess, axilla, Hidradenitis suppurativa - Disposition Disposition Time: 23:11 Condition: GUARDED
[2018-07-30 22:53] LABS: BASO # 0.1 K/uL (0.0-0.2); BASO % 0.8 % (0.0-2.0); EOS # 0.2 K/uL (0.0-0.7); EOS % 2.4 % (0.0-4.0); HEMOGLOBIN 13.5 g/dL (12.0-18.0); LYMPH # 2.1 K/uL (1.0-4.3); LYMPH % 23.3 % (20.0-40.0); MEAN CELL VOLUME 83.5 fl (80.0-94.0); MEAN CORPUSCULAR HEMOGLOBIN 28.3 pg (27.0-31.0); MEAN CORPUSCULAR HGB CONC 33.9 g/dL (33.0-37.0); MEAN PLATELET VOLUME 10.1 fl (7.2-11.7); MONO # 0.4 K/uL (0.0-0.8); MONO % 4.8 % (0.0-10.0); NEUT # 6.3 K/uL (1.8-7.0); NEUT % 68.7 % (50.0-75.0); RBC 4.78 Mil/uL (4.40-5.90); WHITE BLOOD COUNT 9.1 K/uL (4.8-10.8)
[2018-07-30] MEDS ORDERED: Vancomycin 1 g Inj ONE (22:53)
[2018-07-30 23:03] LABS: PARTIAL THROMBOPLASTIN TIME 34.1 Seconds (25.6-37.1)
[2018-07-30 23:07] LABS: BLOOD UREA NITROGEN 13 mg/dl (9-20); CALCIUM 9.2 mg/dL (8.4-10.2); GFR NON-AFRICAN AMERICAN > 60
--- NOTE | 2018-07-31 04:50 | CP.PCM.CON ---
<Linda Olsen - Last Filed: 07/31/18 07:57> History of Present Illness - History of Present Illness History of Present Illness: General surgery consult note for Dr. Gisela Olsen, PGY-2 Pt seen/examined at bedside 32M w/PMH sig for hidradenitis consulted for left axillary and right groin abscesses x 2 days. Pt reports 24 yr hx of hidradenitits with recurrent abscesses and draining sinuses. He has been seen by a general surgeon in [place] with recommendations for plastic surgery - however has not been able to find a plastic surgeon who accepts his insurance. Patient states that he usually reports to hospitals when the abscesses become painful. 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 Denies F & C, SOB, CP, abdominal pain, changes to bowel or bladder habits, changes in eating habits, other complaints. PMH: Hidradenitis suppurativa PSH: I & D of abscesses All: Shellfish SH: Admits to ETOH use- 1 pint weekly of liquor. Denies tobacco or illicit drug use FH: Non contributory PMD: Denies Review of Systems - Review of Systems All systems: reviewed and no additional remarkable complaints except - Constitutional Constitutional: absent: Chills, Fever - EENT Eyes: absent: Change in Vision Nose/Mouth/Throat: absent: Sore Throat - Cardiovascular Cardiovascular: absent: Chest Pain - Respiratory Respiratory: absent: Cough - Gastrointestinal Gastrointestinal: absent: Abdominal Pain, Nausea, Vomiting - Genitourinary Genitourinary: absent: Change in Urinary Stream - Musculoskeletal Musculoskeletal: absent: Neck Pain - Integumentary Integumentary: Changing Lesions, Lesions, Skin Pain. absent: Rash - Psychiatric Psychiatric: absent: Change in Appetite Past Patient History - Infectious Disease Hx of Infectious Diseases: None - Past Medical History & Family History Past Medical History?: Yes - Past Social History Alcohol: None Drugs: Denies - CARDIAC Hx Cardiac Disorders: No - PULMONARY Hx Respiratory Disorders: No - NEUROLOGICAL Hx Neurological Disorder: No - HEENT Hx HEENT Problems: No - RENAL Hx Chronic Kidney Disease: No - ENDOCRINE/METABOLIC Hx Endocrine Disorders: No - HEMATOLOGICAL/ONCOLOGICAL Hx Human Immunodeficiency Virus (HIV): No - INTEGUMENTARY Hx Dermatological Problems: Yes (Pt has hidradenitis suppurativa) Other/Comment: hidradenitis suppurativa - MUSCULOSKELETAL/RHEUMATOLOGICAL Hx Fractures: Yes (right hand) - GASTROINTESTINAL Hx Gastrointestinal Disorders: No - GENITOURINARY/GYNECOLOGICAL Hx Genitourinary Disorders: No - PSYCHIATRIC Hx Psychophysiologic Disorder: No Hx Substance Use: No - SURGICAL HISTORY Hx Surgeries: Yes Other/Comment: Scrotal debridement. Axillary debridement. Multiple I&Ds. Right hand surgery. Right ankle Surgery - ANESTHESIA Hx Anesthesia: Yes Hx Anesthesia Reactions: No Hx Malignant Hyperthermia: No Meds Allergies/Adverse Reactions: Allergies Allergy/AdvReac Type Severity Reaction Status Date / Time shellfish derived Allergy ITCHING Verified 04/27/18 21:48 - Medications Medications: Current Medications Vancomycin HCl 1 gm/ Sodium (Chloride) 250 mls @ 166.667 mls/hr IVPB DAILY PATTI; Protocol Morphine Sulfate (Morphine) 2 mg IVP Q4 PRN PRN Reason: Pain, moderate (4-7) Physical Exam - Constitutional Appears: Non-toxic, No Acute Distress - Head Exam Head Exam: ATRAUMATIC, NORMAL INSPECTION, NORMOCEPHALIC - Eye Exam Eye Exam: Conjunctival injection, EOMI, Normal appearance - Respiratory Exam Respiratory Exam: NORMAL BREATHING PATTERN - Cardiovascular Exam Cardiovascular Exam: REGULAR RHYTHM - GI/Abdominal Exam GI & Abdominal Exam: Hyperactive Bowel Sounds. absent: Distended, Firm, Guarding, Hypoactive Bowel Sounds, Rebound, Tenderness - Extremities Exam Extremities exam: Negative for: normal inspection (righ axilla with sinus draining purulent material; left axilla with induration,) Additional comments: Right groin with tendernes to palpation, small area of fluctuance to area, - Neurological Exam Neurological exam: Alert, CN II-XII Intact, Oriented x3 - Psychiatric Exam Psychiatric exam: Normal Affect, Normal Mood - Skin Skin Exam: Cyanosis, Normal Color, Warm Results - Vital Signs Recent Vital Signs: Last Vital Signs Temp 97.6 F 07/31/18 01:39 Pulse 87 07/31/18 01:39 Resp 18 07/31/18 01:39 BP 130/82 07/31/18 01:39 Pulse Ox 97 07/31/18 01:39 - Labs Result Diagrams: 07/30/18 22:30 07/30/18 22:30 Labs: Laboratory Results - last 24 hr 07/30/18 07/30/18 07/30/18 22:30 22:30 22:30 WBC 9.1 RBC 4.78 Hgb 13.5 Hct 39.9 MCV 83.5 MCH 28.3 MCHC 33.9 RDW 18.0 H Plt Count 299 D MPV 10.1 Neut % (Auto) 68.7 Lymph % (Auto) 23.3 [place] % (Auto) 4.8 Eos % (Auto) 2.4 Baso % (Auto) 0.8 Neut # (Auto) 6.3 Lymph # (Auto) 2.1 [place] # (Auto) 0.4 Eos # (Auto) 0.2 Baso # (Auto) 0.1 PT 11.0 INR 1.0 APTT 34.1 pO2 VBG pH VBG pCO2 VBG HCO3 VBG Total CO2 VBG O2 Sat (Calc) VBG Base Excess VBG Potassium Glucose Lactate FiO2 Sodium 139 Potassium 3.7 Chloride 106 Carbon Dioxide 22 Anion Gap 15 BUN 13 Creatinine 0.8 Est GFR ( Amer) > 60 Est GFR (Non-Af Amer) > 60 Random Glucose 123 H Calcium 9.2 Venous Blood Potassium Blood Type Antibody Screen BBK History Checked 07/30/18 07/30/18 22:30 22:46 WBC RBC Hgb Hct MCV MCH MCHC RDW Plt Count MPV Neut % (Auto) Lymph % (Auto) [place] % (Auto) Eos % (Auto) Baso % (Auto) Neut # (Auto) Lymph # (Auto) [place] # (Auto) Eos # (Auto) Baso # (Auto) PT INR APTT pO2 71 H VBG pH 7.46 H VBG pCO2 33 L VBG HCO3 25.1 VBG Total CO2 24.5 VBG O2 Sat (Calc) 98.8 H VBG Base Excess 0.3 VBG Potassium 3.5 L Glucose 128 H Lactate 1.3 FiO2 21.0 Sodium 139.0 Potassium Chloride 108.0 H Carbon Dioxide Anion Gap BUN Creatinine Est GFR ( Amer) Est GFR (Non-Af Amer) Random Glucose Calcium Venous Blood Potassium 3.5 L Blood Type O POSITIVE Antibody Screen Negative BBK History Checked No verified bt Assessment & Plan - Assessment and Plan (Free Text) Assessment: 32M w/recurrent abscess forming hidradenitisi Plan: FU Left axillary ultrasound Pain control Local wouind care Keep NPO for now Warm compresses for left axilla and right groin Abx Further recs pending attending evaluation and imaging results Will DW Dr. Carla Olsen, PGY-2 - Date & Time Date: 07/31/18 Time: 04:51 <MaxxDeep - Last Filed: 07/31/18 13:33> Meds - Medications Medications: Current Medications Acetaminophen (Tylenol 325mg Tab) 650 mg PO Q4 PRN PRN Reason: Pain, Mild (1-3) Meropenem 1 gm/ Sodium (Chloride) 100 mls @ 100 mls/hr IVPB Q12 PATTI; Protocol Last Admin: 07/31/18 10:58 Dose: 100 mls/hr Daptomycin 380 mg/ Sodium (Chloride) 100 mls @ 100 mls/hr IV Q24H PATTI Stop: 08/05/18 10:46 Ketorolac Tromethamine (Toradol) 15 mg IVP Q6 PRN PRN Reason: Pain, moderate (4-7) Last Admin: 07/31/18 10:59 Dose: 15 mg Morphine Sulfate (Morphine) 2 mg IVP Q4 PRN PRN Reason: Pain, moderate (4-7) Last Admin: 07/31/18 13:13 Dose: 2 mg Results - Vital Signs Recent Vital Signs: Last Vital Signs Temp 97.9 F 07/31/18 07:40 Pulse 66 07/31/18 07:40 Resp 20 07/31/18 07:40 BP 127/77 07/31/18 07:40 Pulse Ox 96 07/31/18 07:40 - Labs Result Diagrams: 07/30/18 22:30 07/30/18 22:30 Labs: Laboratory Results - last 24 hr 07/30/18 07/30/18 07/30/18 22:30 22:30 22:30 WBC 9.1 RBC 4.78 Hgb 13.5 Hct 39.9 MCV 83.5 MCH 28.3 MCHC 33.9 RDW 18.0 H Plt Count 299 D MPV 10.1 Neut % (Auto) 68.7 Lymph % (Auto) 23.3 [place] % (Auto) 4.8 Eos % (Auto) 2.4 Baso % (Auto) 0.8 Neut # (Auto) 6.3 Lymph # (Auto) 2.1 [place] # (Auto) 0.4 Eos # (Auto) 0.2 Baso # (Auto) 0.1 PT 11.0 INR 1.0 APTT 34.1 pO2 VBG pH VBG pCO2 VBG HCO3 VBG Total CO2 VBG O2 Sat (Calc) VBG Base Excess VBG Potassium Glucose Lactate FiO2 Sodium 139 Potassium 3.7 Chloride 106 Carbon Dioxide 22 Anion Gap 15 BUN 13 Creatinine 0.8 Est GFR ( Amer) > 60 Est GFR (Non-Af Amer) > 60 Random Glucose 123 H Calcium 9.2 Venous Blood Potassium Blood Type Blood Type Confirm Antibody Screen BBK History Checked 07/30/18 07/30/18 07/31/18 22:30 22:46 09:58 WBC RBC Hgb Hct MCV MCH MCHC RDW Plt Count MPV Neut % (Auto) Lymph % (Auto) [place] % (Auto) Eos % (Auto) Baso % (Auto) Neut # (Auto) Lymph # (Auto) [place] # (Auto) Eos # (Auto) Baso # (Auto) PT INR APTT pO2 71 H VBG pH 7.46 H VBG pCO2 33 L VBG HCO3 25.1 VBG Total CO2 24.5 VBG O2 Sat (Calc) 98.8 H VBG Base Excess 0.3 VBG Potassium 3.5 L Glucose 128 H Lactate 1.3 FiO2 21.0 Sodium 139.0 Potassium Chloride 108.0 H Carbon Dioxide Anion Gap BUN Creatinine Est GFR ( Amer) Est GFR (Non-Af Amer) Random Glucose Calcium Venous Blood Potassium 3.5 L Blood Type O POSITIVE Blood Type Confirm O POSITIVE Antibody Screen Negative BBK History Checked No verified bt Assessment & Plan - Assessment and Plan (Free Text) Plan: 32yo M with PMHx of hidradenitis well known to me presents with 2 day history of left axillary pain and right groin pain. Denies any recent trauma or drainage from axilla. Continues to report drainage from left gluteal area. Pt denies any fever, chills, sob, abdominal pain, nausea, vomiting. gen: awake, alert, NAD heent: nc/at, eomi, perrla no acute respiratory distress abd: soft, nt, nd, no peritoneal signs axillary: tenderness to palpation, no gross fluctuance, some induration, chronic fistulous tracts 32yo m with hidradenitis with left axillary pain -warm compresses -iv abx -U/S of left axillary - check for collection -will continue to follow
--- NOTE | 2018-07-31 08:09 | CP.PCM.HP ---
<Nico Duong - Last Filed: 07/31/18 09:27> History of Present Illness - History of Present Illness History of Present Illness: 32 y/o male with no MHx w/PMH sig for hidradenitis and R testicular abscess in the past presented for left axillary and right groin abscesses x 2 days. Per patient, he states that it started over a month ago, and has gotten progressively worse. 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 Denies F & C, SOB, CP, abdominal pain, changes to bowel or bladder habits, changes in eating habits, other complaints. MHx: hx of recurrent abscesses SHx: R ankle and R arm plates after a trauma, abscess I&D Allergies: Shellfish NKDA Medications: None Family Hx: None per patient Social Hx: Lives with family, no tobacco, occasional EtOH, no other substances Present on Admission - Present on Admission Any Indicators Present on Admission: No Review of Systems - Review of Systems All systems: reviewed and no additional remarkable complaints except (HPI) Past Patient History - Infectious Disease Hx of Infectious Diseases: None - Past Medical History & Family History Past Medical History?: Yes - Past Social History Alcohol: None Drugs: Denies - CARDIAC Hx Cardiac Disorders: No - PULMONARY Hx Respiratory Disorders: No - NEUROLOGICAL Hx Neurological Disorder: No - HEENT Hx HEENT Problems: No - RENAL Hx Chronic Kidney Disease: No - ENDOCRINE/METABOLIC Hx Endocrine Disorders: No - HEMATOLOGICAL/ONCOLOGICAL Hx Human Immunodeficiency Virus (HIV): No - INTEGUMENTARY Hx Dermatological Problems: Yes (Pt has hidradenitis suppurativa) Other/Comment: hidradenitis suppurativa - MUSCULOSKELETAL/RHEUMATOLOGICAL Hx Fractures: Yes (right hand) - GASTROINTESTINAL Hx Gastrointestinal Disorders: No - GENITOURINARY/GYNECOLOGICAL Hx Genitourinary Disorders: No - PSYCHIATRIC Hx Psychophysiologic Disorder: No Hx Substance Use: No - SURGICAL HISTORY Hx Surgeries: Yes Other/Comment: Scrotal debridement. Axillary debridement. Multiple I&Ds. Right hand surgery. Right ankle Surgery - ANESTHESIA Hx Anesthesia: Yes Hx Anesthesia Reactions: No Hx Malignant Hyperthermia: No Meds Allergies/Adverse Reactions: Allergies Allergy/AdvReac Type Severity Reaction Status Date / Time shellfish derived Allergy ITCHING Verified 04/27/18 21:48 Physical Exam - Constitutional Appears: Non-toxic, No Acute Distress - Head Exam Head Exam: NORMAL INSPECTION - Eye Exam Eye Exam: EOMI, PERRL - ENT Exam ENT Exam: Mucous Membranes Moist - Neck Exam Neck exam: Positive for: Full Rom. Negative for: Lymphadenopathy, Tenderness, Thyromegaly - Respiratory Exam Respiratory Exam: Clear to Auscultation Bilateral, NORMAL BREATHING PATTERN. absent: Chest Wall Tenderness - Cardiovascular Exam Cardiovascular Exam: REGULAR RHYTHM, +S1, +S2. absent: Tachycardia - GI/Abdominal Exam GI & Abdominal Exam: Normal Bowel Sounds, Soft. absent: Distended, Tenderness - Extremities Exam Extremities exam: Negative for: calf tenderness, pedal edema - Neurological Exam Neurological exam: Alert, CN II-XII Intact, Oriented x3 - Psychiatric Exam Psychiatric exam: Normal Mood - Skin Skin Exam: Dry, Warm Additional comments: righ axilla with sinus draining purulent material; left axilla with induration Right groin with tendernes to palpation, small area of fluctuance Results - Vital Signs Recent Vital Signs: Last Vital Signs Temp 97.9 F 07/31/18 07:40 Pulse 66 07/31/18 07:40 Resp 20 07/31/18 07:40 BP 127/77 07/31/18 07:40 Pulse Ox 96 07/31/18 07:40 - Labs Result Diagrams: 07/30/18 22:30 07/30/18 22:30 Labs: Laboratory Results - last 24 hr 07/30/18 07/30/18 07/30/18 22:30 22:30 22:30 WBC 9.1 RBC 4.78 Hgb 13.5 Hct 39.9 MCV 83.5 MCH 28.3 MCHC 33.9 RDW 18.0 H Plt Count 299 D MPV 10.1 Neut % (Auto) 68.7 Lymph % (Auto) 23.3 [place] % (Auto) 4.8 Eos % (Auto) 2.4 Baso % (Auto) 0.8 Neut # (Auto) 6.3 Lymph # (Auto) 2.1 [place] # (Auto) 0.4 Eos # (Auto) 0.2 Baso # (Auto) 0.1 PT 11.0 INR 1.0 APTT 34.1 pO2 VBG pH VBG pCO2 VBG HCO3 VBG Total CO2 VBG O2 Sat (Calc) VBG Base Excess VBG Potassium Glucose Lactate FiO2 Sodium 139 Potassium 3.7 Chloride 106 Carbon Dioxide 22 Anion Gap 15 BUN 13 Creatinine 0.8 Est GFR ( Amer) > 60 Est GFR (Non-Af Amer) > 60 Random Glucose 123 H Calcium 9.2 Venous Blood Potassium Blood Type Antibody Screen BBK History Checked 07/30/18 07/30/18 22:30 22:46 WBC RBC Hgb Hct MCV MCH MCHC RDW Plt Count MPV Neut % (Auto) Lymph % (Auto) [place] % (Auto) Eos % (Auto) Baso % (Auto) Neut # (Auto) Lymph # (Auto) [place] # (Auto) Eos # (Auto) Baso # (Auto) PT INR APTT pO2 71 H VBG pH 7.46 H VBG pCO2 33 L VBG HCO3 25.1 VBG Total CO2 24.5 VBG O2 Sat (Calc) 98.8 H VBG Base Excess 0.3 VBG Potassium 3.5 L Glucose 128 H Lactate 1.3 FiO2 21.0 Sodium 139.0 Potassium Chloride 108.0 H Carbon Dioxide Anion Gap BUN Creatinine Est GFR ( Amer) Est GFR (Non-Af Amer) Random Glucose Calcium Venous Blood Potassium 3.5 L Blood Type O POSITIVE Antibody Screen Negative BBK History Checked No verified bt Assessment & Plan - Assessment and Plan (Free Text) Assessment: 32 y/o male with hx of recurrent scrotal abscess and recently admitted 1 month ago for a scrotal abscess (s/p I&D by Urology) admitted with persistent R. Groin/Scrotal pain and swelling and hidradenitits. Plan: - Testicular US: unremarkable for scrotal abscess - FU Left axillary ultrasound - Urology, ID, and General Surgery consulted - Pain control - Continue IV abx - Local wound care - Warm compresses for left axilla and right groin - F/u Bcx - labs in am Discussed case with Dr. Espitia <[place] Espitia - Last Filed: 08/04/18 19:52> Results - Vital Signs Recent Vital Signs: Last Vital Signs Temp 97.7 F 08/04/18 08:06 Pulse 52 L 08/04/18 08:06 Resp 20 08/04/18 08:06 BP 120/70 08/04/18 08:06 Pulse Ox 96 08/04/18 08:06 - Labs Result Diagrams: 08/04/18 05:55 08/04/18 05:55 Labs: Laboratory Results - last 24 hr 08/04/18 08/04/18 05:55 05:55 WBC 14.3 H RBC 4.37 L Hgb 12.2 Hct 36.5 MCV 83.4 MCH 27.9 MCHC 33.4 RDW 17.7 H Plt Count 228 Sodium 139 Potassium 4.5 Chloride 109 H Carbon Dioxide 23 Anion Gap 12 BUN 13 Creatinine 0.7 L Est GFR ( Amer) > 60 Est GFR (Non-Af Amer) > 60 Random Glucose 129 H Calcium 8.5 Total Bilirubin 0.2 AST 18 ALT 33 Alkaline Phosphatase 61 Total Protein 6.7 Albumin 3.6 Globulin 3.1 Albumin/Globulin Ratio 1.2 Assessment & Plan - Assessment and Plan (Free Text) Assessment: Patient was personally seen and examined by me in rounds with residents. Available labs and diagnostic data reviewed. Case, Patient's condition and management plan discussed with residents in rounds. Agree with resident's progress note. Plan: As ordered.
--- NOTE | 2018-07-31 09:29 | US ---
Date of service: 07/30/2018 HISTORY: right testicle abscess TECHNIQUE: Realtime sonography through the scrotum with color and doppler flow. COMPARISON: None Available. FINDINGS: RIGHT TESTICLE: Measures 3.7 x 4.1 x 2.1 cm. Normal echotexture and flow. RIGHT EPIDIDYMIS: Epididymal head measures 1.4 x 1 cm. There is 0.7 x 0.6 x 0.8 centimeter cyst at the right epididymal head. LEFT TESTICLE: Measures 4 x 3.7 x 1.8 cm. Normal echotexture and flow. LEFT EPIDIDYMIS: Epididymal head measures 1.2 x 1.1 cm. Grossly unremarkable appearance with normal flow. HYDROCELE: None. VARICOCELE: None. OTHER FINDINGS: None. IMPRESSION: No sonographic evidence of acute abnormality in the scrotum. No ultrasound evidence of discrete abscess formation. Preliminary report was submitted by [facility] Radiology contains concordant findings.
[2018-07-31] MEDS ORDERED: DAPTOmycin 500 mg Inj (Cubicin) IVP SCH (10:30)
[2018-07-31] MEDS: Meropenem 1 GM in Sodium Chloride 0.9% 100 ML IVPB SCH ×2 (10:58→21:09)
--- NOTE | 2018-07-31 12:05 | CP.PCM.PN ---
Subjective - Date & Time of Evaluation Date of Evaluation: 07/31/18 Time of Evaluation: 12:02 - Subjective Subjective: 32 year old male admitted with possible scrotal abcess pthas hx hydroadenitis and has multiple admissions for same . Pt has no Elevation of wbc no temp Scrotal us shows no evidence of testicular abcess, A no evidence of intrascrotal abcess. Arron Objective - Vital Signs/Intake and Output Vital Signs (last 24 hours): Temp Pulse Resp BP Pulse Ox 97.9 F 66 20 127/77 96 07/31/18 07:40 07/31/18 07:40 07/31/18 07:40 07/31/18 07:40 07/31/18 07:40 - Medications Medications: Current Medications Acetaminophen (Tylenol 325mg Tab) 650 mg PO Q4 PRN PRN Reason: Pain, Mild (1-3) Meropenem 1 gm/ Sodium (Chloride) 100 mls @ 100 mls/hr IVPB Q12 PATTI; Protocol Last Admin: 07/31/18 10:58 Dose: 100 mls/hr Daptomycin 380 mg/ Sodium (Chloride) 100 mls @ 100 mls/hr IV Q24H PATTI Stop: 08/05/18 10:46 Ketorolac Tromethamine (Toradol) 15 mg IVP Q6 PRN PRN Reason: Pain, moderate (4-7) Last Admin: 07/31/18 10:59 Dose: 15 mg Morphine Sulfate (Morphine) 2 mg IVP Q4 PRN PRN Reason: Pain, moderate (4-7) Last Admin: 07/31/18 09:07 Dose: 2 mg - Labs Labs: 07/30/18 22:30 07/30/18 22:30 PT 11.0 Seconds (9.8-13.1) 07/30/18 22:30 INR 1.0 07/30/18 22:30 APTT 34.1 Seconds (25.6-37.1) 07/30/18 22:30
--- NOTE | 2018-07-31 22:04 | CP.PCM.PN ---
Subjective - Date & Time of Evaluation Date of Evaluation: 07/31/18 Time of Evaluation: 22:00 - Subjective Subjective: I D NOTE PATIENT WELL KNOWN TO ME HAS SEVERE HIDROADENITIS MULTIPLE AREAS OF BODY REURRENT SCROTAL ABSCESS HAVE RESTARTED DAPTOMYCIN/MEROPENEM WILL ADD FLAGYL Objective - Vital Signs/Intake and Output Vital Signs (last 24 hours): Temp Pulse Resp BP Pulse Ox 98 F 51 L 18 112/67 98 07/31/18 15:52 07/31/18 15:52 07/31/18 15:52 07/31/18 15:52 07/31/18 15:52 - Medications Medications: Current Medications Acetaminophen (Tylenol 325mg Tab) 650 mg PO Q4 PRN PRN Reason: Pain, Mild (1-3) Meropenem 1 gm/ Sodium (Chloride) 100 mls @ 100 mls/hr IVPB Q12 PATTI; Protocol Last Admin: 07/31/18 21:09 Dose: 100 mls/hr Daptomycin 380 mg/ Sodium (Chloride) 100 mls @ 100 mls/hr IV Q24H PATTI Stop: 08/05/18 10:46 Last Admin: 07/31/18 16:43 Dose: 100 mls/hr Ketorolac Tromethamine (Toradol) 15 mg IVP Q6 PRN PRN Reason: Pain, moderate (4-7) Last Admin: 07/31/18 18:25 Dose: 15 mg Morphine Sulfate (Morphine) 2 mg IVP Q4 PRN PRN Reason: Pain, severe (8-10) Last Admin: 07/31/18 21:05 Dose: 2 mg - Labs Labs: 07/30/18 22:30 07/30/18 22:30 PT 11.0 Seconds (9.8-13.1) 07/30/18 22:30 INR 1.0 07/30/18 22:30 APTT 34.1 Seconds (25.6-37.1) 07/30/18 22:30
[2018-08-01] MEDS: metroNIDAZOLE 500mg/100ml NS 100 ML IVPB SCH ×3 (01:19→16:57)
[2018-08-01 07:43] LABS: BASO # 0.1 K/uL (0.0-0.2); EOS # 0.2 K/uL (0.0-0.7); EOS % 3.6 % (0.0-4.0); HEMOGLOBIN 12.3 g/dL (12.0-18.0); LYMPH # 2.6 K/uL (1.0-4.3); LYMPH % 37.5 % (20.0-40.0); MEAN CELL VOLUME 82.5 fl (80.0-94.0); MEAN CORPUSCULAR HEMOGLOBIN 28.1 pg (27.0-31.0); MEAN CORPUSCULAR HGB CONC 34.1 g/dL (33.0-37.0); MEAN PLATELET VOLUME 9.6 fl (7.2-11.7); MONO # 0.5 K/uL (0.0-0.8); MONO % 7.4 % (0.0-10.0); NEUT # 3.5 K/uL (1.8-7.0); NEUT % 50.5 % (50.0-75.0); NRBC % 0.1 % (0.0-0.0); RBC 4.36 Mil/uL (4.40-5.90); RED CELL DISTRIBUTION WIDTH 17.8 % (11.5-14.5); WHITE BLOOD COUNT 6.9 K/uL (4.8-10.8)
--- NOTE | 2018-08-01 08:01 | CP.PCM.PN ---
<Dominick Gerardo - Last Filed: 08/01/18 08:58> Subjective - Date & Time of Evaluation Date of Evaluation: 08/01/18 Time of Evaluation: 08:58 - Subjective Subjective: Surgery Note for Dr. Prince Patient seen and examined at bedside. No acute event overnight. Patient states pain has improved and is controlled. He reports decrease in size of induration in L axilla and R groin. He also reports drainage from both sites. He admits to flatus and BMs. Tolerating diet. Objective - Vital Signs/Intake and Output Vital Signs (last 24 hours): Temp Pulse Resp BP Pulse Ox 97.9 F 64 18 126/79 98 07/31/18 23:55 07/31/18 23:55 07/31/18 23:55 07/31/18 23:55 07/31/18 23:55 - Medications Medications: Current Medications Acetaminophen (Tylenol 325mg Tab) 650 mg PO Q4 PRN PRN Reason: Pain, Mild (1-3) Meropenem 1 gm/ Sodium (Chloride) 100 mls @ 100 mls/hr IVPB Q12 PATTI; Protocol Last Admin: 07/31/18 21:09 Dose: 100 mls/hr Daptomycin 380 mg/ Sodium (Chloride) 100 mls @ 100 mls/hr IV Q24H PATTI Stop: 08/05/18 10:46 Last Admin: 07/31/18 16:43 Dose: 100 mls/hr Metronidazole (Flagyl 500mg/100ml Ns) 100 mls @ 100 mls/hr IVPB Q8 PATTI; Protocol Last Admin: 08/01/18 01:19 Dose: 100 mls/hr Ketorolac Tromethamine (Toradol) 15 mg IVP Q6 PRN PRN Reason: Pain, moderate (4-7) Last Admin: 08/01/18 03:46 Dose: 15 mg Morphine Sulfate (Morphine) 2 mg IVP Q4 PRN PRN Reason: Pain, severe (8-10) Last Admin: 08/01/18 06:39 Dose: 2 mg - Labs Labs: 08/01/18 06:59 07/30/18 22:30 PT 11.0 Seconds (9.8-13.1) 07/30/18 22:30 INR 1.0 07/30/18 22:30 APTT 34.1 Seconds (25.6-37.1) 07/30/18 22:30 - Additional Findings Additional findings: - Constitutional Appears: Non-toxic, No Acute Distress - Head Exam Head Exam: ATRAUMATIC, NORMAL INSPECTION, NORMOCEPHALIC - Eye Exam Eye Exam: Conjunctival injection, EOMI, Normal appearance - Respiratory Exam Respiratory Exam: NORMAL BREATHING PATTERN - Cardiovascular Exam Cardiovascular Exam: REGULAR RHYTHM - GI/Abdominal Exam GI & Abdominal Exam: Hyperactive Bowel Sounds. absent: Distended, Firm, Guarding, Hypoactive Bowel Sounds, Rebound, Tenderness - Extremities Exam Extremities exam: Negative for: normal inspection (right axilla with sinus draining purulent material; left axilla with induration,now draining) Additional comments: Right groin with tenderness to palpation, small area of fluctuance to area, - Neurological Exam Neurological exam: Alert, CN II-XII Intact, Oriented x3 - Psychiatric Exam Psychiatric exam: Normal Affect, Normal Mood - Skin Skin Exam: Cyanosis, Normal Color, Warm Assessment and Plan - Assessment and Plan (Free Text) Assessment: 32M with hidradenitis supporitiva who presents for recurrent flare Plan: regular diet Left axillary ultrasound shows 4.4 cm x 1.8cm x 1.7cm abscess Axilla is draining Pain control Local wound care Warm compresses for left axilla and right groin IV Abx Discussed with Dr. Suresh Gerardo PGY2 <Hernesto Prince - Last Filed: 08/01/18 16:20> Subjective - Date & Time of Evaluation Time of Evaluation: 16:00 - Subjective Subjective: Patient was seen and examined at the bedside. Agree with resident's note above. Objective - Vital Signs/Intake and Output Vital Signs (last 24 hours): Temp Pulse Resp BP Pulse Ox 97.9 F 57 L 20 120/74 95 08/01/18 15:46 08/01/18 15:46 08/01/18 15:46 08/01/18 15:46 08/01/18 15:46 - Medications Medications: Current Medications Acetaminophen (Tylenol 325mg Tab) 650 mg PO Q4 PRN PRN Reason: Pain, Mild (1-3) Meropenem 1 gm/ Sodium (Chloride) 100 mls @ 100 mls/hr IVPB Q12 PATTI; Protocol Last Admin: 08/01/18 10:35 Dose: 100 mls/hr Metronidazole (Flagyl 500mg/100ml Ns) 100 mls @ 100 mls/hr IVPB Q8 PATTI; Protocol Last Admin: 08/01/18 08:57 Dose: 100 mls/hr Daptomycin 380 mg/ Sodium (Chloride) 100 mls @ 100 mls/hr IV DAILY@1600 PATTI Stop: 08/05/18 10:46 Last Admin: 08/01/18 15:31 Dose: 100 mls/hr Ketorolac Tromethamine (Toradol) 15 mg IVP Q6 PRN PRN Reason: Pain, moderate (4-7) Last Admin: 08/01/18 15:46 Dose: 15 mg Methylprednisolone (Solu-Medrol) 40 mg IVP Q12 PATTI Morphine Sulfate (Morphine) 2 mg IVP Q4 PRN PRN Reason: Pain, severe (8-10) Last Admin: 08/01/18 14:20 Dose: 2 mg - Labs Labs: 08/01/18 06:59 07/30/18 22:30 PT 11.0 Seconds (9.8-13.1) 07/30/18 22:30 INR 1.0 07/30/18 22:30 APTT 34.1 Seconds (25.6-37.1) 07/30/18 22:30 Assessment and Plan - Assessment and Plan (Free Text) Plan: - No need for surgical intervention at present time since the abscesses are draining spontaneously - Continue antibiotics - Will follow
[2018-08-01] MEDS: Meropenem 1 GM in Sodium Chloride 0.9% 100 ML IVPB SCH ×2 (10:35→20:28)
--- NOTE | 2018-08-01 10:55 | US ---
Date of service: 07/31/2018 PROCEDURE: Soft tissue ultrasound, limited. HISTORY: Assess left axillary region 4 abscess. Clinical presentation swelling and pain 3 days duration. Relevant medical history: Prior abscess/drainage 2011 from the left axilla. COMPARISON: None TECHNIQUE: Standard protocol for this study/examination. FINDINGS: Complex left axillary collection 1.8 x 1.7 x 4.4 cm. The collection with a thick wall contains fluid and debris. IMPRESSION: Drainable collection left axilla consistent with abscess. Concordant findings (preliminary report) provided by KENJI MADRIGAL.
--- NOTE | 2018-08-01 15:23 | CP.PCM.PN ---
Subjective - Date & Time of Evaluation Date of Evaluation: 08/01/18 Time of Evaluation: 15:15 - Subjective Subjective: I D NOTE IMPROVEMENT NOTED THIS PATIENT WILL NOT HAVE ANY CHANCE OF CURE OR SIGNIFICANT IMPROVEMENT S EXTENSIVE SURGICAL INTERVENTION(LYMPH NODE REMOVAL,PLASTIC INVOLVEMENT). WOULD NEED RETIREMENT CARE ADD STEROIDD AGAIN Objective - Vital Signs/Intake and Output Vital Signs (last 24 hours): Temp Pulse Resp BP Pulse Ox 97.6 F 61 20 114/72 99 08/01/18 08:46 08/01/18 08:46 08/01/18 08:46 08/01/18 08:46 08/01/18 08:46 - Medications Medications: Current Medications Acetaminophen (Tylenol 325mg Tab) 650 mg PO Q4 PRN PRN Reason: Pain, Mild (1-3) Meropenem 1 gm/ Sodium (Chloride) 100 mls @ 100 mls/hr IVPB Q12 PATTI; Protocol Last Admin: 08/01/18 10:35 Dose: 100 mls/hr Metronidazole (Flagyl 500mg/100ml Ns) 100 mls @ 100 mls/hr IVPB Q8 PATTI; Protocol Last Admin: 08/01/18 08:57 Dose: 100 mls/hr Daptomycin 380 mg/ Sodium (Chloride) 100 mls @ 100 mls/hr IV DAILY@1600 PATTI Stop: 08/05/18 10:46 Ketorolac Tromethamine (Toradol) 15 mg IVP Q6 PRN PRN Reason: Pain, moderate (4-7) Last Admin: 08/01/18 03:46 Dose: 15 mg Morphine Sulfate (Morphine) 2 mg IVP Q4 PRN PRN Reason: Pain, severe (8-10) Last Admin: 08/01/18 14:20 Dose: 2 mg - Labs Labs: 08/01/18 06:59 07/30/18 22:30 PT 11.0 Seconds (9.8-13.1) 07/30/18 22:30 INR 1.0 07/30/18 22:30 APTT 34.1 Seconds (25.6-37.1) 07/30/18 22:30
--- NOTE | 2018-08-01 16:09 | PN ---
DATE: 08/01/2018 SUBJECTIVE: The patient seen and examined. Interim events noted. Surgical consult noted and appreciated. The patient remains in regular medical floor. The patient feels better and pain improved. No chest pain. No shortness of breath. No fever. PHYSICAL EXAMINATION: GENERAL: The patient is in no acute distress. VITAL SIGNS: Stable. Temperature 97.6, pulse 61, respirations 20, blood pressure 114/72. HEENT: Pupils reacting to light. No JVD. No thyromegaly. No lymphadenopathy. No nystagmus. Normocephalic, atraumatic. HEART: S1 and S2 normal and regular. No significant murmur, gallop or rub is heard. LUNGS: Shows good bilateral air exchange. No rales or rhonchi. ABDOMEN: Soft, nontender. EXTREMITIES: No edema. No calf swelling. No tenderness. No acute ischemia. PARK ATTENDANT: Essentially unchanged and there is no sign of any acute gross focal motor or sensory neurological deficit. DIAGNOSTIC DATA: Available diagnostic data reviewed . Infectious disease toy consultant followup noted and appreciated. WBC 6.9, hemoglobin 12.3, hematocrit 36, and platelet 214. Blood culture remains negative. ASSESSMENT AND PLAN: Overall, the patient is medically stable and improving. Plan as ordered. Cleveland Espitia MD
[2018-08-01] MEDS: MethylPREDNISolone 40 mg Vial IVP SCH (20:27)
[2018-08-01] MEDS ORDERED: methylPREDNISolone 40 MG in Sodium Chloride 0.9% 50 ML IVPB SCH (21:00)
[2018-08-02] MEDS: metroNIDAZOLE 500mg/100ml NS 100 ML IVPB SCH ×3 (01:21→16:13)
[2018-08-02] MEDS: MethylPREDNISolone 40 mg Vial IVP SCH ×2 (09:42→20:15)
--- NOTE | 2018-08-02 09:42 | CP.PCM.PN ---
<CorrineMarco Antonio guerrero - Last Filed: 08/02/18 09:40> Subjective - Date & Time of Evaluation Date of Evaluation: 08/02/18 Time of Evaluation: 07:45 - Subjective Subjective: Surgery Progress note. Dr. Prince Pt seen and examined at bedside. No acute events overnight. No N/V/D. No F/C. No new complaints. Still reports drainage from left axilla and right groin. States that the pain has improved. Tolerating diet. Objective - Vital Signs/Intake and Output Vital Signs (last 24 hours): Temp Pulse Resp BP Pulse Ox 98 F 61 20 124/62 96 08/02/18 08:33 08/02/18 08:33 08/02/18 08:33 08/02/18 08:33 08/02/18 08:33 - Medications Medications: Current Medications Acetaminophen (Tylenol 325mg Tab) 650 mg PO Q4 PRN PRN Reason: Pain, Mild (1-3) Meropenem 1 gm/ Sodium (Chloride) 100 mls @ 100 mls/hr IVPB Q12 PATTI; Protocol Last Admin: 08/01/18 20:28 Dose: 100 mls/hr Metronidazole (Flagyl 500mg/100ml Ns) 100 mls @ 100 mls/hr IVPB Q8 PATTI; Protocol Last Admin: 08/02/18 09:34 Dose: 100 mls/hr Daptomycin 380 mg/ Sodium (Chloride) 100 mls @ 100 mls/hr IV DAILY@1600 PATTI Stop: 08/05/18 10:46 Last Admin: 08/01/18 15:31 Dose: 100 mls/hr Ketorolac Tromethamine (Toradol) 15 mg IVP Q6 PRN PRN Reason: Pain, moderate (4-7) Last Admin: 08/01/18 15:46 Dose: 15 mg Methylprednisolone (Solu-Medrol) 40 mg IVP Q12 PATTI Last Admin: 08/01/18 20:27 Dose: 40 mg Morphine Sulfate (Morphine) 2 mg IVP Q4 PRN PRN Reason: Pain, severe (8-10) Last Admin: 08/02/18 05:45 Dose: 2 mg - Labs Labs: 08/01/18 06:59 07/30/18 22:30 PT 11.0 Seconds (9.8-13.1) 07/30/18 22:30 INR 1.0 07/30/18 22:30 APTT 34.1 Seconds (25.6-37.1) 07/30/18 22:30 - Constitutional Appears: Well, Non-toxic, No Acute Distress - Head Exam Head Exam: ATRAUMATIC, NORMAL INSPECTION, NORMOCEPHALIC - Eye Exam Eye Exam: EOMI, Normal appearance. absent: Scleral icterus - ENT Exam ENT Exam: Mucous Membranes Moist - Respiratory Exam Respiratory Exam: NORMAL BREATHING PATTERN. absent: Accessory Muscle Use, Respiratory Distress - Cardiovascular Exam Cardiovascular Exam: RRR. absent: JVD - GI/Abdominal Exam GI & Abdominal Exam: Soft. absent: Firm, Guarding, Rigid, Tenderness, Rebound - Extremities Exam Additional comments: Left axilla with multiple sinus tracts, draining purulent material, induration improving. Right groin with active drainage noted. - Neurological Exam Neurological Exam: Alert, Awake, Oriented x3 - Psychiatric Exam Psychiatric exam: Normal Affect, Normal Mood Assessment and Plan - Assessment and Plan (Free Text) Assessment: 32yo M with Hidradenitis. Here with acute flare at left axilla and right groin Plan: - Both sites actively draining - No need for acute general surgery intervention warranted - Continue Abx as per ID recs - Pain control - Continue local wound care. - Keep area clean and dry. Continue with warm compresses - Upon discharge, patient will need follow up with plastics for possible resection with flaps once the active infection is controlled. Further recs as per Dr. Suresh Castle PGY2 surgery <Hernesto Prince - Last Filed: 08/02/18 14:58> Subjective - Date & Time of Evaluation Time of Evaluation: 14:20 - Subjective Subjective: Patient was seen and examined at the bedside. Agree with resident's note above. Objective - Vital Signs/Intake and Output Vital Signs (last 24 hours): Temp Pulse Resp BP Pulse Ox 98 F 61 20 124/62 96 08/02/18 08:33 08/02/18 08:33 08/02/18 08:33 08/02/18 08:33 08/02/18 08:33 - Medications Medications: Current Medications Acetaminophen (Tylenol 325mg Tab) 650 mg PO Q4 PRN PRN Reason: Pain, Mild (1-3) Meropenem 1 gm/ Sodium (Chloride) 100 mls @ 100 mls/hr IVPB Q12 PATTI; Protocol Last Admin: 08/02/18 10:42 Dose: 100 mls/hr Metronidazole (Flagyl 500mg/100ml Ns) 100 mls @ 100 mls/hr IVPB Q8 PATTI; Protocol Last Admin: 08/02/18 09:34 Dose: 100 mls/hr Daptomycin 380 mg/ Sodium (Chloride) 100 mls @ 100 mls/hr IV DAILY@1600 PATTI Stop: 08/05/18 10:46 Last Admin: 08/01/18 15:31 Dose: 100 mls/hr Ketorolac Tromethamine (Toradol) 15 mg IVP Q6 PRN PRN Reason: Pain, moderate (4-7) Last Admin: 08/02/18 11:53 Dose: 15 mg Methylprednisolone (Solu-Medrol) 40 mg IVP Q12 PATTI Last Admin: 08/02/18 09:42 Dose: 40 mg Morphine Sulfate (Morphine) 2 mg IVP Q4 PRN PRN Reason: Pain, severe (8-10) Last Admin: 08/02/18 13:24 Dose: 2 mg - Labs Labs: 08/01/18 06:59 07/30/18 22:30 PT 11.0 Seconds (9.8-13.1) 07/30/18 22:30 INR 1.0 07/30/18 22:30 APTT 34.1 Seconds (25.6-37.1) 07/30/18 22:30
--- NOTE | 2018-08-02 10:12 | PN ---
DATE: 08/02/2018 SUBJECTIVE: The patient seen and examined. Interim events noted. Consults noted and appreciated. Surgery followup and intervention noted and appreciated. The patient remains in regular medical floor. Awake, responsive. Feels okay. Pain is present, but better. No chest pain, no shortness of breath. PHYSICAL EXAMINATION: GENERAL: The patient is in no acute distress. VITAL SIGNS: Stable. HEART: S1, S2 normal, regular. LUNGS: Bilateral air exchange. ABDOMEN: Soft, nontender. EXTREMITIES: No edema. No calf swelling. No tenderness. No acute ischemia. CENTRAL NERVOUS SYSTEM: Essentially unchanged. SKIN: Reveals draining axillary abscess. ASSESSMENT AND PLAN: Overall, the patient is improving with pain and swelling. Infectious Disease intervention noted and appreciated. Plan as ordered. Cleveland Espitia MD
[2018-08-02] MEDS: Meropenem 1 GM in Sodium Chloride 0.9% 100 ML IVPB SCH ×2 (10:42→20:14)
[2018-08-02 20:11] LABS: HEMOGLOBIN 12.6 g/dL (12.0-18.0); MEAN CELL VOLUME 82.8 fl (80.0-94.0); MEAN CORPUSCULAR HEMOGLOBIN 28.2 pg (27.0-31.0); MEAN CORPUSCULAR HGB CONC 34.1 g/dL (33.0-37.0); RBC 4.46 Mil/uL (4.40-5.90); RED CELL DISTRIBUTION WIDTH 17.6 % (11.5-14.5); WHITE BLOOD COUNT 14.6 K/uL (4.8-10.8)
[2018-08-02 20:20] LABS: ALB/GLOB RATIO 1.2 (1.0-2.1); ALBUMIN 3.9 g/dL (3.5-5.0); ALT/SGPT 31 U/L (21-72); AST/SGOT 22 U/L (17-59); BLOOD UREA NITROGEN 14 mg/dl (9-20); GFR NON-AFRICAN AMERICAN > 60
[2018-08-03] MEDS: metroNIDAZOLE 500mg/100ml NS 100 ML IVPB SCH ×3 (00:09→16:48)
[2018-08-03 06:51] LABS: HEMOGLOBIN 12.3 g/dL (12.0-18.0); MEAN CELL VOLUME 83.2 fl (80.0-94.0); MEAN CORPUSCULAR HEMOGLOBIN 27.7 pg (27.0-31.0); MEAN CORPUSCULAR HGB CONC 33.3 g/dL (33.0-37.0); RBC 4.43 Mil/uL (4.40-5.90); RED CELL DISTRIBUTION WIDTH 17.3 % (11.5-14.5); WHITE BLOOD COUNT 14.9 K/uL (4.8-10.8)
[2018-08-03 06:58] LABS: ALB/GLOB RATIO 1.2 (1.0-2.1); ALBUMIN 3.8 g/dL (3.5-5.0); ALT/SGPT 31 U/L (21-72); AST/SGOT 16 U/L (17-59); BLOOD UREA NITROGEN 13 mg/dl (9-20); CALCIUM 8.8 mg/dL (8.4-10.2); GFR NON-AFRICAN AMERICAN > 60
--- NOTE | 2018-08-03 07:53 | CP.PCM.PN ---
<CamachoCory - Last Filed: 08/03/18 07:53> Subjective - Date & Time of Evaluation Date of Evaluation: 08/03/18 Time of Evaluation: 07:51 - Subjective Subjective: Surgery Progress Note for Dr. Lilly 32M seen and evaluated at bedside this morning. No acute events overnight. Axilla and groin pain improved, no drainage. Denies f/c, n/v/d, SOB, CP, or urinary symptoms. Objective - Vital Signs/Intake and Output Vital Signs (last 24 hours): Temp Pulse Resp BP Pulse Ox 97.9 F 55 L 19 135/89 97 08/02/18 23:22 08/02/18 23:22 08/02/18 23:22 08/02/18 23:22 08/02/18 23:22 - Medications Medications: Current Medications Acetaminophen (Tylenol 325mg Tab) 650 mg PO Q4 PRN PRN Reason: Pain, Mild (1-3) Meropenem 1 gm/ Sodium (Chloride) 100 mls @ 100 mls/hr IVPB Q12 PATTI; Protocol Last Admin: 08/02/18 20:14 Dose: 100 mls/hr Metronidazole (Flagyl 500mg/100ml Ns) 100 mls @ 100 mls/hr IVPB Q8 PATTI; Protocol Last Admin: 08/03/18 00:09 Dose: 100 mls/hr Daptomycin 380 mg/ Sodium (Chloride) 100 mls @ 100 mls/hr IV DAILY@1600 PATTI Stop: 08/05/18 10:46 Last Admin: 08/02/18 17:13 Dose: 100 mls/hr Ketorolac Tromethamine (Toradol) 15 mg IVP Q6 PRN PRN Reason: Pain, moderate (4-7) Last Admin: 08/02/18 11:53 Dose: 15 mg Methylprednisolone (Solu-Medrol) 40 mg IVP Q12 PATTI Last Admin: 08/02/18 20:15 Dose: 40 mg Methylprednisolone (Solu-Medrol) 40 mg IVP Q12 PATTI Stop: 08/05/18 21:01 Morphine Sulfate (Morphine) 2 mg IVP Q6 PRN PRN Reason: Pain, severe (8-10) - Labs Labs: 08/03/18 05:40 08/03/18 05:40 PT 11.0 Seconds (9.8-13.1) 07/30/18 22:30 INR 1.0 07/30/18 22:30 APTT 34.1 Seconds (25.6-37.1) 07/30/18 22:30 - Constitutional Appears: Well, Non-toxic, No Acute Distress - Head Exam Head Exam: ATRAUMATIC, NORMAL INSPECTION, NORMOCEPHALIC - Eye Exam Eye Exam: EOMI - ENT Exam ENT Exam: Mucous Membranes Moist - Respiratory Exam Respiratory Exam: Clear to Ausculation Bilateral, NORMAL BREATHING PATTERN - Cardiovascular Exam Cardiovascular Exam: REGULAR RHYTHM, +S1, +S2. absent: Murmur - GI/Abdominal Exam GI & Abdominal Exam: Soft, Normal Bowel Sounds. absent: Tenderness - Neurological Exam Neurological Exam: Alert, Awake, Oriented x3 - Psychiatric Exam Psychiatric exam: Normal Affect, Normal Mood - Skin Additional comments: indurated areas around axilla and groin with visible sinus tracts, no drainage, no erythema, mild tenderness to palpation Assessment and Plan - Assessment and Plan (Free Text) Assessment: 32M w/ hydradenitis suppurtiva, no abscess/drainable fluid collection Plan: Continue IV antibiotics Antiemetics and analgesics PRN Continue local wound care Keep area clean and dry Continue with warm compresses Upon discharge, patient will need follow up with plastics for possible resection with flaps once the active infection is controlled. Further recs per Dr. Suresh Sauer PGY1 <Deep Lilly - Last Filed: 08/03/18 10:12> Objective - Vital Signs/Intake and Output Vital Signs (last 24 hours): Temp Pulse Resp BP Pulse Ox 97.5 F L 58 L 19 128/69 97 08/03/18 07:51 08/03/18 07:51 08/03/18 07:51 08/03/18 07:51 08/03/18 07:51 - Medications Medications: Current Medications Acetaminophen (Tylenol 325mg Tab) 650 mg PO Q4 PRN PRN Reason: Pain, Mild (1-3) Meropenem 1 gm/ Sodium (Chloride) 100 mls @ 100 mls/hr IVPB Q12 PATTI; Protocol Last Admin: 08/03/18 08:29 Dose: 100 mls/hr Metronidazole (Flagyl 500mg/100ml Ns) 100 mls @ 100 mls/hr IVPB Q8 PATTI; Pr otocol Last Admin: 08/03/18 08:29 Dose: 100 mls/hr Daptomycin 380 mg/ Sodium (Chloride) 100 mls @ 100 mls/hr IV DAILY@1600 PATTI Stop: 08/05/18 10:46 Last Admin: 08/02/18 17:13 Dose: 100 mls/hr Ketorolac Tromethamine (Toradol) 15 mg IVP Q6 PRN PRN Reason: Pain, moderate (4-7) Last Admin: 08/03/18 08:34 Dose: 15 mg Methylprednisolone (Solu-Medrol) 40 mg IVP Q12 PATTI Stop: 08/05/18 21:01 Last Admin: 08/03/18 08:29 Dose: 40 mg Morphine Sulfate (Morphine) 2 mg IVP Q4 PRN PRN Reason: Pain, severe (8-10) Last Admin: 08/03/18 09:43 Dose: 2 mg - Labs Labs: 08/03/18 05:40 08/03/18 05:40 PT 11.0 Seconds (9.8-13.1) 07/30/18 22:30 INR 1.0 07/30/18 22:30 APTT 34.1 Seconds (25.6-37.1) 07/30/18 22:30 Assessment and Plan - Assessment and Plan (Free Text) Plan: seen at bedside, pt states he feels better, left axilla pain has improved, +drainage. Drainage to right groin has improved. gen: awake, alert, NAD no acute respiratory distress left axillary: +tenderness to palpation, +drainage, no gross fluctuance cont abx local wound care warm compress will need plastics evaluation for possible resection, flaps
[2018-08-03] MEDS: MethylPREDNISolone 40 mg Vial IVP SCH ×3 (08:29→21:12)
[2018-08-03] MEDS: Meropenem 1 GM in Sodium Chloride 0.9% 100 ML IVPB SCH ×2 (08:29→21:11)
[2018-08-04 00:08] VITALS: TEMP 97.7
[2018-08-04] MEDS: metroNIDAZOLE 500mg/100ml NS 100 ML IVPB SCH ×2 (00:14→08:24)
[2018-08-04 06:26] LABS: HEMOGLOBIN 12.2 g/dL (12.0-18.0); MEAN CELL VOLUME 83.4 fl (80.0-94.0); MEAN CORPUSCULAR HEMOGLOBIN 27.9 pg (27.0-31.0); MEAN CORPUSCULAR HGB CONC 33.4 g/dL (33.0-37.0); RBC 4.37 Mil/uL (4.40-5.90); RED CELL DISTRIBUTION WIDTH 17.7 % (11.5-14.5); WHITE BLOOD COUNT 14.3 K/uL (4.8-10.8)
[2018-08-04 06:36] LABS: ALB/GLOB RATIO 1.2 (1.0-2.1); ALBUMIN 3.6 g/dL (3.5-5.0); ALT/SGPT 33 U/L (21-72); AST/SGOT 18 U/L (17-59); BLOOD UREA NITROGEN 13 mg/dl (9-20); CALCIUM 8.5 mg/dL (8.4-10.2); GFR NON-AFRICAN AMERICAN > 60
--- NOTE | 2018-08-04 07:33 | CP.PCM.PN ---
<Nico Duong - Last Filed: 08/04/18 11:32> Subjective - Date & Time of Evaluation Date of Evaluation: 08/04/18 Time of Evaluation: 07:33 - Subjective Subjective: Patient seen and examine this morning with Dr Espitia, no events overnight. Reports feeling better, pain better controlled with meds. Denies f/c, n/v/d, SOB, CP, or urinary symptoms. Objective - Vital Signs/Intake and Output Vital Signs (last 24 hours): Temp Pulse Resp BP Pulse Ox 97.7 F 58 L 18 136/81 97 08/04/18 00:08 08/04/18 00:08 08/04/18 00:08 08/04/18 00:08 08/04/18 00:08 - Medications Medications: Current Medications Acetaminophen (Tylenol 325mg Tab) 650 mg PO Q4 PRN PRN Reason: Pain, Mild (1-3) Meropenem 1 gm/ Sodium (Chloride) 100 mls @ 100 mls/hr IVPB Q12 PATTI; Protocol Last Admin: 08/03/18 21:11 Dose: 100 mls/hr Metronidazole (Flagyl 500mg/100ml Ns) 100 mls @ 100 mls/hr IVPB Q8 PATTI; Protocol Last Admin: 08/04/18 00:14 Dose: 100 mls/hr Daptomycin 380 mg/ Sodium (Chloride) 100 mls @ 100 mls/hr IV DAILY@1600 PATTI Stop: 08/05/18 10:46 Last Admin: 08/03/18 16:48 Dose: 100 mls/hr Ketorolac Tromethamine (Toradol) 15 mg IVP Q6 PRN PRN Reason: Pain, moderate (4-7) Last Admin: 08/03/18 08:34 Dose: 15 mg Methylprednisolone (Solu-Medrol) 40 mg IVP Q12 PATTI Stop: 08/05/18 21:01 Last Admin: 08/03/18 21:12 Dose: 40 mg Morphine Sulfate (Morphine) 2 mg IVP Q4 PRN PRN Reason: Pain, severe (8-10) Last Admin: 08/04/18 06:00 Dose: 2 mg - Labs Labs: 08/04/18 05:55 08/04/18 05:55 PT 11.0 Seconds (9.8-13.1) 07/30/18 22:30 INR 1.0 07/30/18 22:30 APTT 34.1 Seconds (25.6-37.1) 07/30/18 22:30 - Constitutional Appears: No Acute Distress - Head Exam Head Exam: NORMAL INSPECTION - Eye Exam Eye Exam: EOMI, PERRL - ENT Exam ENT Exam: Mucous Membranes Moist - Neck Exam Neck Exam: Full ROM. absent: Lymphadenopathy, Tenderness, Thyromegaly - Respiratory Exam Respiratory Exam: Clear to Ausculation Bilateral, NORMAL BREATHING PATTERN. absent: Chest Wall Tenderness - Cardiovascular Exam Cardiovascular Exam: REGULAR RHYTHM, +S1, +S2. absent: Tachycardia - GI/Abdominal Exam GI & Abdominal Exam: Soft, Normal Bowel Sounds. absent: Distended, Tenderness - Extremities Exam Extremities Exam: absent: Calf Tenderness, Pedal Edema - Neurological Exam Neurological Exam: Alert, Awake, CN II-XII Intact, Oriented x3 - Psychiatric Exam Psychiatric exam: Normal Mood - Skin Additional comments: multiple sinus tracts in the axilla and groin, no drainage noted, no induration or fluctuance. Assessment and Plan - Assessment and Plan (Free Text) Assessment: 32 y/o male with hx of recurrent scrotal abscess and recently admitted 1 month ago for a scrotal abscess (s/p I&D by Urology) admitted with persistent R. Groin/Scrotal pain and swelling and hidradenitits. Plan: - Testicular US: unremarkable for scrotal abscess - leukocytosis, afebrile - blood cultures negative afetr 76 hrs - Urology, ID, and General Surgery consulted - Pain control - Continue IV antibiotics - Local wound care - Warm compresses for left axilla and right groin - Plastic surgery consulted per gen Surgery recs. - labs in am Discussed case with Dr. Espitia <Cleveland Espitia - Last Filed: 08/04/18 19:50> Objective - Vital Signs/Intake and Output Vital Signs (last 24 hours): Temp Pulse Resp BP Pulse Ox 97.7 F 52 L 20 120/70 96 08/04/18 08:06 08/04/18 08:06 08/04/18 08:06 08/04/18 08:06 08/04/18 08:06 - Labs Labs: 08/04/18 05:55 08/04/18 05:55 PT 11.0 Seconds (9.8-13.1) 07/30/18 22:30 INR 1.0 07/30/18 22:30 APTT 34.1 Seconds (25.6-37.1) 07/30/18 22:30 Assessment and Plan - Assessment and Plan (Free Text) Assessment: Patient was personally seen and examined by me in rounds with residents. Available labs and diagnostic data reviewed. Case, Patient's condition and management plan discussed with residents in rounds. Agree with resident's progress note. Plan: As ordered.
[2018-08-04 08:06] VITALS: BP 120/70; PULSE 52; RESP 20; O2SAT 96
--- NOTE | 2018-08-04 08:17 | CP.PCM.PN ---
<CamachoCory - Last Filed: 08/04/18 08:14> Subjective - Date & Time of Evaluation Date of Evaluation: 08/04/18 Time of Evaluation: 08:15 - Subjective Subjective: Surgery Progress Note for Dr. Lilly 32M seen and evaluated at bedside this morning. No acute events overnight. No complaints this morning. Axilla draining serous fluid spontaneously. Pain controlled. Denies f/c, n/v/d, SOB, CP, or urinary symptoms. Objective - Vital Signs/Intake and Output Vital Signs (last 24 hours): Temp Pulse Resp BP Pulse Ox 97.7 F 52 L 20 120/70 96 08/04/18 08:06 08/04/18 08:06 08/04/18 08:06 08/04/18 08:06 08/04/18 08:06 - Medications Medications: Current Medications Acetaminophen (Tylenol 325mg Tab) 650 mg PO Q4 PRN PRN Reason: Pain, Mild (1-3) Meropenem 1 gm/ Sodium (Chloride) 100 mls @ 100 mls/hr IVPB Q12 PATTI; Protocol Last Admin: 08/03/18 21:11 Dose: 100 mls/hr Metronidazole (Flagyl 500mg/100ml Ns) 100 mls @ 100 mls/hr IVPB Q8 PATTI; Protocol Last Admin: 08/04/18 00:14 Dose: 100 mls/hr Daptomycin 380 mg/ Sodium (Chloride) 100 mls @ 100 mls/hr IV DAILY@1600 PATTI Stop: 08/05/18 10:46 Last Admin: 08/03/18 16:48 Dose: 100 mls/hr Ketorolac Tromethamine (Toradol) 15 mg IVP Q6 PRN PRN Reason: Pain, moderate (4-7) Last Admin: 08/03/18 08:34 Dose: 15 mg Methylprednisolone (Solu-Medrol) 40 mg IVP Q12 PATTI Stop: 08/05/18 21:01 Last Admin: 08/03/18 21:12 Dose: 40 mg Morphine Sulfate (Morphine) 2 mg IVP Q4 PRN PRN Reason: Pain, severe (8-10) Last Admin: 08/04/18 06:00 Dose: 2 mg - Labs Labs: 08/04/18 05:55 08/04/18 05:55 PT 11.0 Seconds (9.8-13.1) 07/30/18 22:30 INR 1.0 07/30/18 22:30 APTT 34.1 Seconds (25.6-37.1) 07/30/18 22:30 - Constitutional Appears: Well, Non-toxic, No Acute Distress - Head Exam Head Exam: ATRAUMATIC, NORMAL INSPECTION, NORMOCEPHALIC - Eye Exam Eye Exam: EOMI - ENT Exam ENT Exam: Mucous Membranes Moist - Respiratory Exam Respiratory Exam: Clear to Ausculation Bilateral, NORMAL BREATHING PATTERN - Cardiovascular Exam Cardiovascular Exam: REGULAR RHYTHM, +S1, +S2. absent: Murmur - GI/Abdominal Exam GI & Abdominal Exam: Soft, Normal Bowel Sounds. absent: Tenderness - Neurological Exam Neurological Exam: Alert, Awake, Oriented x3 - Psychiatric Exam Psychiatric exam: Normal Affect, Normal Mood - Skin Additional comments: multiple sinus tracts in the axilla and groin, no drainage noted at this time fibrotic tissue palpable, no induration or fluctuance Assessment and Plan - Assessment and Plan (Free Text) Assessment: 32M w/ hydradenitis suppurtiva, no abscess/drainable fluid collection Plan: Continue IV antibiotics - switch to PO Antiemetics and analgesics PRN Continue local wound care Keep area clean and dry Continue with warm compresses Upon discharge, patient will need follow up with plastics for possible resection with flaps once the active infection is controlled No acute surgical intervention at this present time Cory Sauer PGY1 <Deep Lilly - Last Filed: 08/04/18 11:12> Objective - Vital Signs/Intake and Output Vital Signs (last 24 hours): Temp Pulse Resp BP Pulse Ox 97.7 F 52 L 20 120/70 96 08/04/18 08:06 08/04/18 08:06 08/04/18 08:06 08/04/18 08:06 08/04/18 08:06 - Medications Medications: Current Medications Acetaminophen (Tylenol 325mg Tab) 650 mg PO Q4 PRN PRN Reason: Pain, Mild (1-3) Meropenem 1 gm/ Sodium (Chloride) 100 mls @ 100 mls/hr IVPB Q12 PATTI; Protocol Last Admin: 08/04/18 08:24 Dose: 100 mls/hr Metronidazole (Flagyl 500mg/100ml Ns) 100 mls @ 100 mls/hr IVPB Q8 PATTI; Protocol Last Admin: 08/04/18 08:24 Dose: 100 mls/hr Daptomycin 380 mg/ Sodium (Chloride) 100 mls @ 100 mls/hr IV DAILY@1600 PATTI Stop: 08/05/18 10:46 Last Admin: 08/03/18 16:48 Dose: 100 mls/hr Ketorolac Tromethamine (Toradol) 15 mg IVP Q6 PRN PRN Reason: Pain, moderate (4-7) Last Admin: 08/03/18 08:34 Dose: 15 mg Methylprednisolone (Solu-Medrol) 40 mg IVP Q12 PATTI Stop: 08/05/18 21:01 Last Admin: 08/04/18 08:23 Dose: 40 mg Morphine Sulfate (Morphine) 2 mg IVP Q4 PRN PRN Reason: Pain, severe (8-10) Last Admin: 08/04/18 10:00 Dose: 2 mg - Labs Labs: 08/04/18 05:55 08/04/18 05:55 PT 11.0 Seconds (9.8-13.1) 07/30/18 22:30 INR 1.0 07/30/18 22:30 APTT 34.1 Seconds (25.6-37.1) 07/30/18 22:30 Assessment and Plan - Assessment and Plan (Free Text) Plan: seen at bedside, no overnight events. Pt states he feels better, pain to left axilla has improved. gen: awake, alert, NAD heent: nc/at, eomi, perrla left axilary: minimal tenderenss to palpation, +drainage, 32yo M with hidradenitis -cont IV abx as per id -warm compresses -pt needs follow up with plastic surgeon -no surgical intervention at this time, surgery will sign out
[2018-08-04] MEDS: MethylPREDNISolone 40 mg Vial IVP SCH (08:23)
[2018-08-04] MEDS: Meropenem 1 GM in Sodium Chloride 0.9% 100 ML IVPB SCH (08:24)
--- NOTE | 2018-08-04 08:24 | PN ---
DATE: 08/03/2018 SUBJECTIVE: The patient seen and examined. Interim events noted. Consults noted and appreciated. Surgery followup and intervention noted and appreciated. Case discussed with Surgery at bedside. The patient feels better. Still has significant amount of pain, reduction in narcotic medication and pain getting worse. The patient is not sure to decrease his narcotic pain medicine. No new complaint of chest pain or shortness of breath. PHYSICAL EXAMINATION: GENERAL: The patient is in no acute distress. VITAL SIGNS: Stable. HEART: S1 and S2, normal, regular. LUNGS: Good bilateral air exchange. ABDOMEN: Soft, nontender. EXTREMITIES: No edema. No calf swelling, no tenderness. No acute ischemia. CENTRAL NERVOUS SYSTEM: Essentially unchanged. SKIN: Left axilla is healed. area healed. ASSESSMENT AND PLAN: Overall, the patient is slowly improving. Infectious Disease, Surgery followup and intervention noted and appreciated. Plan as ordered. Cleveland Espitia MD
--- NOTE | 2018-08-04 12:55 | CP.PCM.PCO ---
Assessment/Plan - Assessment/Plan Assessment (Free Text): Pt stable, feels better wants to go home. Seen and cleared for d/c by surgery with outpt f/u with plastics. Per Dr. Vaca, pt will ideally need IV abx until plasctic surgery is done, but ok to d/c home on oral Ceftin and Flagyl. Rx sent to pt's pharmacy
--- NOTE | 2018-08-05 06:48 | PQF ---
PROVIDER RESPONSE TEXT: Provider was unable to determine a response for this query. REVIEWER QUERY TEXT: Conflicting Documentation Clarification A single mention or documentation of multiple diagnoses for the same clinical presentation appears in the record. Please clarify if testicular/ scrotal abscess is ruled in or ruled out. 07/31 ID: RECURRENT SCROTAL ABSCESS 07/31 : 32 year old male admitted with possible scrotal abscess . Pt has hx hidroadenitis and has mu ltiple admissions for same .Pt has no Elevation of wbc no temp Scrotal us shows no evidence of testicular ab scess, no evidence of intrascrotal abscess Please clarify the diagnosis/diagnoses. Please also document if the condition is: -- Confirmed and current -- Confirmed, treated and resolved -- Ruled out -- Other, please specify The patient's Clinical Indicators include: Testicular US: No sonographic evidence of acute abnormality in the scrotum.No ultrasound evidence of discrete abscess formation. Query created by: Ca Gonzáles on 08/03/2018 12:54 PM Electronically signed by: Nico Duong 08/05/2018 6:45 AM
== END 2018-08-04 13:21 | disposition home or self-care (01) | DRG 278 ==
LOC: H.ER 20:20 → H.ERHOLD 23:11 → H.MEDSURG1 07-31 01:22
PROVIDERS: ADMIT Internal Medicine; ATTEND Internal Medicine
DX: L02.412 Cutaneous abscess of left axilla (principal); L73.2 Hidradenitis suppurativa

== ENCOUNTER 2018-08-06 20:03 | Emergency (ER) | payer OTHER ==
[2018-08-06 20:03] VITALS: BMI 30.4
[2018-08-06] MEDS ORDERED: Sodium Chloride 0.9% 1,000 ML IV STA (21:02)
[2018-08-06 21:37] LABS: BASO # 0.1 K/uL (0.0-0.2); BASO % 0.6 % (0.0-2.0); EOS # 0.1 K/uL (0.0-0.7); HEMOGLOBIN 13.5 g/dL (12.0-18.0); LYMPH # 2.9 K/uL (1.0-4.3); LYMPH % 29.9 % (20.0-40.0); MEAN CELL VOLUME 84.2 fl (80.0-94.0); MEAN CORPUSCULAR HEMOGLOBIN 28.5 pg (27.0-31.0); MEAN CORPUSCULAR HGB CONC 33.8 g/dL (33.0-37.0); MEAN PLATELET VOLUME 10.1 fl (7.2-11.7); MONO # 0.7 K/uL (0.0-0.8); MONO % 7.1 % (0.0-10.0); NEUT % 61.4 % (50.0-75.0); NRBC % 0.1 % (0.0-0.0); RBC 4.74 Mil/uL (4.40-5.90); RED CELL DISTRIBUTION WIDTH 17.7 % (11.5-14.5); WHITE BLOOD COUNT 9.8 K/uL (4.8-10.8)
[2018-08-06 21:38] LABS: ALB/GLOB RATIO 1.1 (1.0-2.1); ALBUMIN 3.8 g/dL (3.5-5.0); ALT/SGPT 40 U/L (21-72); AST/SGOT 27 U/L (17-59); BLOOD UREA NITROGEN 18 mg/dl (9-20); CALCIUM 9.1 mg/dL (8.4-10.2); GFR NON-AFRICAN AMERICAN > 60; LIPASE 222 U/L (23-300)
--- NOTE | 2018-08-06 21:43 | ED PDOC ---
HPI: Abdomen Time Seen by Provider: 08/06/18 20:43 Chief Complaint (Nursing): Abdominal Pain Chief Complaint (Provider): Abdominal Pain History Per: Patient History/Exam Limitations: no limitations Onset/Duration Of Symptoms: Days (x1), Intermittent Episodes Current Symptoms Are (Timing): Still Present Location Of Pain/Discomfort: Diffuse Additional Complaint(s): 32 year old male presents to the ED for evaluation of intermittent abdominal luis eduardo n onset yesterday. He reports the pain is diffuse and associated with decreased appetite. Otherwise, denies vomiting, diarrhea, blood in stool, fever, and constipation. Has not taken any pain meds. Of note, patient recently admitted for abscesses to his testicle and axilla, currently on antibiotics and steroids. Past Medical History Reviewed: Historical Data, Nursing Documentation, Vital Signs Vital Signs: Last Vital Signs Temp 98.8 F 08/06/18 20:29 Pulse 84 08/06/18 20:29 Resp 18 08/06/18 20:29 BP 146/97 H 08/06/18 20:29 Pulse Ox 98 08/06/18 20:29 Primary Care Provider: FAMILY PROVIDER,NO - Medical History PMH: Fractures (right hand) Denies: HIV, Chronic Kidney Disease Other PMH: hidradenitis suppurativa - Surgical History Other surgeries: Scrotal debridement. Axillary debridement. Multiple I&Ds. Right hand surgery. Right ankle Surgery - Family History Family History: States: Unknown Family Hx - Social History Current smoker - smoking cessation education provided: No Alcohol: Social Drugs: Denies - Home Medications Home Medications: Ambulatory Orders Medication Instructions Recorded Cefuroxime Axetil [Cefuroxime] 500 mg PO Q12 #28 tablet 08/04/18 Methylprednisolone [Medrol Dose 4 mg PO DAILY #21 mg 08/04/18 Pack (21 tabs)] Metronidazole [Flagyl] 500 mg PO TID #42 tablet 08/04/18 - Allergies Allergies/Adverse Reactions: Allergies Allergy/AdvReac Type Severity Reaction Status Date / Time shellfish derived Allergy ITCHING Verified 04/27/18 21:48 Review of Systems ROS Statement: Except As Marked, All Systems Reviewed And Found Negative Constitutional: Negative for: Fever Gastrointestinal: Positive for: Abdominal Pain (diffuse), Other (decreased appetite). Negative for: Vomiting, Diarrhea, Constipation, Melena, Hematochezia Physical Exam - Reviewed Nursing Documentation Reviewed: Yes Vital Signs Reviewed: Yes - Physical Exam Appears: Positive for: No Acute Distress Head Exam: Positive for: ATRAUMATIC, NORMOCEPHALIC Skin: Positive for: Normal Color, Warm Eye Exam: Positive for: Normal appearance Neck: Positive for: Normal, Painless ROM, Supple Cardiovascular/Chest: Positive for: Regular Rate, Rhythm Respiratory: Positive for: Normal Breath Sounds. Negative for: Respiratory Distress Gastrointestinal/Abdominal: Positive for: Soft, Tenderness (diffuse). Negative for: Mass, Guarding, Rebound Extremity: Positive for: Normal ROM (all extremities) Neurological/Psych: Positive for: Awake, Alert, Oriented (x3) - Laboratory Results Result Diagrams: 08/06/18 21:20 08/06/18 21:20 Lab Results: Total Bilirubin 0.5 mg/dl (0.2-1.3) 08/06/18 21:20 AST 27 U/L (17-59) 08/06/18 21:20 ALT 40 U/L (21-72) 08/06/18 21:20 Alkaline Phosphatase 67 U/L (38-126) 08/06/18 21:20 Total Protein 7.2 G/DL (6.3-8.2) 08/06/18 21:20 Albumin 3.8 g/dL (3.5-5.0) 08/06/18 21:20 Globulin 3.4 gm/dL (2.2-3.9) 08/06/18 21:20 Albumin/Globulin Ratio 1.1 (1.0-2.1) 08/06/18 21:20 Lipase 222 U/L (23-300) 08/06/18 21:20 - ECG O2 Sat by Pulse Oximetry: 98 (RA) Pulse Ox Interpretation: Normal - Progress Re-evaluation Time: 23:55 Condition: Re-examined, Improved Medical Decision Making Medical Decision Making: Initial Impression: abdominal pain DDx includes but is not limited to: gastritis, pancreatitis, cholelithiasis, colitis, small bowel obstruction, appendicitis Initial Plan: --CT abd and pelvis IV contrast only --CMP --Lipase chem --CBC with differential --Bentyl 10mg PO --Normal saline IV --Pepcid 20mg IVP --Reevaluation Scribe Attestation: Documented by Quyen Delatorre, acting as a scribe for Faustino Ann MD. Provider Scribe Attestation: All medical record entries made by the Scribe were at my direction and personally dictated by me. I have reviewed the chart and agree that the record accurately reflects my personal performance of the history, physical exam, medical decision making, and the department course for this patient. I have also personally directed, reviewed, and agree with the discharge instructions and disposition. Disposition - Clinical Impression Clinical Impression: Abdominal pain, Enterocolitis - Patient ED Disposition Is Patient to be Admitted: No Doctor Will See Patient In The: Office Counseled Patient/Family Regarding: Studies Performed, Diagnosis, Need For Followup - Disposition Referrals: Louie Kumar MD, PhD [Staff Provider] - Disposition: Routine/Home Disposition Time: 23:56 Condition: GOOD Additional Instructions: LORI FOSTER, thank you for letting us take care of you today. Your provider was Faustino Ann MD and you were treated for ABD PAIN. The emergency medical care you received today was directed at your acute symptoms. If you were prescribed any medication, please fill it and take as directed. It may take several days for your symptoms to resolve. Return to the Emergency Department if your symptoms worsen, do not improve, or if you have any other problems. Please contact your doctor or call one of the physicians/clinics you have been referred to that are listed on the Patient Visit Information form that is included in your discharge packet. Bring any paperwork you were given at discharge with you along with any medications you are taking to your follow up visit. Our treatment cannot replace ongoing medical care by a primary care provider outside of the emergency department. Thank you for allowing the [facility] team to be part of your care today. If you had an X-Ray or CT scan: A Radiologist will review the ED reading if any change in treatment is needed we will contact you. If you had a blood, urine, or wound culture: It will take several days for the results, if any change in treatment is needed we will contact you. If you had an STI test: It will take 48 hours for the results. Please call after 1 week if you have not heard back. Instructions: Colitis Forms: [facility] ([employer])
[2018-08-06] MEDS ORDERED: Iohexol 300 100 ML IJ ONE (22:29)
[2018-08-06] MEDS ORDERED: Sodium Chloride 0.9% 50 ML IV ONE (22:29)
[2018-08-07 00:34] VITALS: BP 138/81; PULSE 77; RESP 16; TEMP 98.5; O2SAT 97
--- NOTE | 2018-08-07 12:27 | CT ---
Date of service: 08/06/2018 PROCEDURE: CT abdomen and pelvis HISTORY: Abdominal pain COMPARISON: Comparison made with prior CT scan of the pelvis dated 06/30/2018. TECHNIQUE: Contiguous axial images of the abdomen and pelvis performed following intravenous injection of approximately 27 cc Omnipaque 300 contrast material. Note that the injection was terminated as patient complained of pain at the IV site.. As a result, the examination is therefore limited. Additional 2D sagittal and coronal the reformats generated. Radiation dose: Total exam DLP = 641.12 mGy-cm. This CT exam was performed using one or more of the following dose reduction techniques: Automated exposure control, adjustment of the mA and/or kV according to patient size, and/or use of iterative reconstruction technique. FINDINGS: LOWER THORAX: Heart size is within range of normal. No significant pericardial effusion. There is a small hiatal hernia. Lung bases are clear without focal consolidation. No evidence of effusion or basilar pneumothorax. LIVER: The liver exhibits normal size and attenuation pattern without mass collection or calcification so far as can be seen. GALLBLADDER AND BILE DUCTS: Gallbladder is contracted. No obvious intraluminal gallbladder calculi identified on this limited exam. PANCREAS: No obvious pancreatic mass collection or calcification. No significant pancreatic ductal dilatation. SPLEEN: Unremarkable. No splenomegaly. ADRENALS: No adrenal lesions are identified. KIDNEYS AND URETERS: Demonstrate relatively symmetric nephrograms not withstanding limited intravenous contrast injection. No evidence of nephrolithiasis or hydronephrosis. BLADDER: The urinary bladder incompletely distended which in part accounts for thick-walled appearance. Muscular hypertrophy presumably contributes however correlation with urinalysis recommended to exclude cystitis versus other intrinsic/invasive wall lesion. REPRODUCTIVE: Unremarkable as visualized. APPENDIX: Unremarkable. BOWEL: Evaluation of the bowel is somewhat limited due to the lack of oral contrast material. Stomach is distended with food debris liquid and air. There are multiple slightly thick-walled loops of small bowel possibly secondary to a enteritis. Clinical correlation recommended. Visualized loops of small bowel otherwise exhibit normal contour and caliber with no evidence of acute mechanical small bowel obstruction.. There appears to be submucosal lucency within the cecum ascending and proximal half of the transverse colon which can be seen as sequela of chronic inflammatory bowel disease or possibly acute inflammatory process.. Clinical correlation recommended.. Minimal wall thickening of the sigmoid colon nonspecific. PERITONEUM: Unremarkable. No fluid collection. No free air. Small fat containing bilateral inguinal hernias. Small to medium sized fat containing umbilical hernia. LYMPH NODES: Unremarkable. No enlarged lymph nodes. VASCULATURE: Unremarkable. No aortic aneurysm. No aortic atherosclerotic calcification or mural plaque present. BONES: Minor multilevel degenerative spondylosis. OTHER FINDINGS: None. IMPRESSION: Limited study due to termination of intravenous injection by patient as detailed above. There are multiple loops of small bowel that exhibit slight thick-walled appearance; rule inflammatory etiology.. Submucosal lucency within the cecum ascending and proximal half of the transverse colon; findings could represent sequela of chronic inflammatory bowel disease of or possibly a mild acute inflammatory bowel disease.
== END 2018-08-07 00:34 | disposition home or self-care (01) ==
LOC: H.ER 20:03
DX: R10.9 Unspecified abdominal pain (principal); K52.9 Noninfective gastroenteritis and colitis, unspecified
CPT/HCPCS: 74177; 80053; 83690; 85025; 96374; 96375; 99283; J1885; J7030; Q9967

== ENCOUNTER 2018-08-10 12:08 | Emergency (ER) | payer OTHER ==
[2018-08-10 12:31] VITALS: BMI 30.5
[2018-08-10 12:32] VITALS: O2SAT 99
[2018-08-10] MEDS ORDERED: Vancomycin 1 g Inj IVPB STA (13:10)
[2018-08-10] MEDS ORDERED: Morphine 4 MG/ML VIAL IVP ONE (13:12)
[2018-08-10] MEDS ORDERED: Sodium Chloride 0.9% 1,000 ML IV STA (13:12)
--- NOTE | 2018-08-10 13:18 | ED PDOC ---
HPI: General Adult Time Seen by Provider: 08/10/18 13:08 Chief Complaint (Nursing): Abnormal Skin Integrity Chief Complaint (Provider): SWELLING History Per: Patient (32 Y/O MALE H/O HYDRADENITIS HERE FOR ABSCESS NOTED BY RECTUM NOTED X 1 DAY. DENIES ANY FEVERS/CHILLS. HAS BEEN ADMITTED LAST WEEK FOR ABSCESS AXILLARY/TESTICULAR.) Past Medical History Reviewed: Historical Data, Nursing Documentation, Vital Signs Vital Signs: Last Vital Signs Temp 98.7 F 08/10/18 12:31 Pulse 89 08/10/18 12:31 Resp 18 08/10/18 12:31 BP 148/94 H 08/10/18 12:31 Pulse Ox 99 08/10/18 12:31 Primary Care Provider: Non [facility] Provider, - Medical History PMH: Fractures (right hand) Denies: HIV, Chronic Kidney Disease - Family History Family History: States: Unknown Family Hx - Home Medications Home Medications: Ambulatory Orders Medication Instructions Recorded Cefuroxime Axetil [Cefuroxime] 500 mg PO Q12 #28 tablet 08/04/18 Methylprednisolone [Medrol Dose 4 mg PO DAILY #21 mg 08/04/18 Pack (21 tabs)] Metronidazole [Flagyl] 500 mg PO TID #42 tablet 08/04/18 Ciprofloxacin HCl [Cipro] 500 mg PO BID #14 tablet 08/07/18 Dicyclomine [Bentyl] 10 mg PO QID #20 cap 08/07/18 Amoxicillin/Clavulanate [Augmentin 1 tab PO BID #20 tab 08/10/18 875 MG-125 MG] Naproxen 375 mg PO Q8 PRN #21 tablet 08/10/18 - Allergies Allergies/Adverse Reactions: Allergies Allergy/AdvReac Type Severity Reaction Status Date / Time shellfish derived Allergy ITCHING Verified 04/27/18 21:48 Review of Systems ROS Statement: Except As Marked, All Systems Reviewed And Found Negative Physical Exam - Reviewed Nursing Documentation Reviewed: Yes Vital Signs Reviewed: Yes - Physical Exam Appears: Positive for: Well, Non-toxic, No Acute Distress Head Exam: Positive for: ATRAUMATIC, NORMAL INSPECTION, NORMOCEPHALIC Skin: Positive for: Normal Color, Warm, DRY Eye Exam: Positive for: EOMI, Normal appearance, PERRL ENT: Positive for: Normal ENT Inspection Neck: Positive for: Normal, Painless ROM Cardiovascular/Chest: Positive for: Regular Rate, Rhythm Respiratory: Positive for: CNT, Normal Breath Sounds Gastrointestinal/Abdominal: Positive for: Normal Exam, Soft Back: Positive for: Normal Inspection Rectal: Positive for: Other (ABSCESS NOTED RIGHT GLUTEAL REGION BY RECTUM EXTENDING TO PERINEAL REGION.) Extremity: Positive for: Normal ROM Neurological/Psych: Positive for: Awake, Alert, Normal Tone - Laboratory Results Result Diagrams: 08/10/18 13:30 08/10/18 13:30 - ECG O2 Sat by Pulse Oximetry: 99 - Progress ED Course And Treament: MORPHINE 4 MG IV X 1 DOSE VANCOMYCIN 1 GM IV X 1 DOSE SEEN BY CUSTOMER RESOLUTION SPECIALIST IN ED IMPRESSION: No definitive abscess is not clearly identified at this time at the medial left buttocks region with residual scarring and diminishing cellulitis type pattern surrounding the prior infectious process at the medial left buttocks. No direct perianal soft tissue pathology grossly appreciable by CT criteria. Underlying phlegmon is not completely excluded though this would be limited finding. PATIENT TO F/U WITH DR. PRINCE Disposition - Clinical Impression Clinical Impression: Hydradenitis - Patient ED Disposition Is Patient to be Admitted: No - Disposition Referrals: Hernesto Prince MD [Staff Provider] - Disposition: Routine/Home Disposition Time: 15:16 Condition: FAIR Prescriptions: Amoxicillin/Clavulanate [Augmentin 875 MG-125 MG] 1 tab PO BID #20 tab Naproxen 375 mg PO Q8 PRN #21 tablet PRN Reason: Pain, Moderate (4-7) Instructions: Hidradenitis Suppurativa Forms: [facility] ED School/Work Excuse
[2018-08-10] MEDS ORDERED: Vancomycin 1 g Inj ONE (13:21)
[2018-08-10] MEDS ORDERED: Morphine 4 MG/ML VIAL ONE (13:22)
[2018-08-10 13:45] LABS: BASO # 0.1 K/uL (0.0-0.2); BASO % 0.6 % (0.0-2.0); EOS # 0.1 K/uL (0.0-0.7); EOS % 0.7 % (0.0-4.0); HEMOGLOBIN 13.5 g/dL (12.0-18.0); LYMPH # 2.6 K/uL (1.0-4.3); LYMPH % 22.4 % (20.0-40.0); MEAN CELL VOLUME 82.8 fl (80.0-94.0); MEAN CORPUSCULAR HEMOGLOBIN 27.9 pg (27.0-31.0); MEAN CORPUSCULAR HGB CONC 33.7 g/dL (33.0-37.0); MEAN PLATELET VOLUME 10.1 fl (7.2-11.7); MONO # 1.1 K/uL (0.0-0.8); MONO % 9.5 % (0.0-10.0); NEUT # 7.7 K/uL (1.8-7.0); NEUT % 66.8 % (50.0-75.0); RBC 4.85 Mil/uL (4.40-5.90); RED CELL DISTRIBUTION WIDTH 18.1 % (11.5-14.5); WHITE BLOOD COUNT 11.5 K/uL (4.8-10.8)
--- NOTE | 2018-08-10 13:51 | CP.PCM.CON ---
History of Present Illness - History of Present Illness History of Present Illness: General Surgery Consult Note for Dr. Prince Reason for Consult: perirectal pain 32M with PMH that includes for hidradenitis supportiva who presents to [facility] for complaint of perirectal pain. Patient was seen and evaluated in the ED. Patient was admitted last 08/06 and discahrged yesterday 08/09. Patient went home and was feeling completely fine when he woke up this morning he noticed the pain and subsequently a fluctuant area on the left perirectal area. Patient has a 22 yr history of hidradenitits with recurrent abscesses and draining sinuses. He has had multiple procedures for this. He has been seen by multiple general surgeons with recommendations for plastic surgery but unableable to find a plastic surgeon who accepts his insurance. He was recommedned to another plastic surgeon upon discharge yesterday but was unable to call due to weekend and holiday. Patient has no other complaints. Denies fever/chills, cp, SOB, palpitations, abd pain, n/v/d, constipation, melena, hematochezia, urinary symptoms or other abscesses. PMH: Hidradenitis suppurativa PSH: mutliple procedures for hidraadenitis including I&Ds All: Shellfish FH: Non contributory Social: Admits to ETOH use- 1 pint weekly of liquor. Denies tobacco or illicit drug use Review of Systems - Review of Systems All systems: reviewed and no additional remarkable complaints except (as per HPI) Past Patient History - Infectious Disease Hx of Infectious Diseases: None - Past Medical History & Family History Past Medical History?: Yes - Past Social History Smoking Status: Never Smoked - CARDIAC Hx Cardiac Disorders: No - PULMONARY Hx Respiratory Disorders: No - NEUROLOGICAL Hx Neurological Disorder: No - HEENT Hx HEENT Problems: No - RENAL Hx Chronic Kidney Disease: No - ENDOCRINE/METABOLIC Hx Endocrine Disorders: No - HEMATOLOGICAL/ONCOLOGICAL Hx Human Immunodeficiency Virus (HIV): No - INTEGUMENTARY Hx Dermatological Problems: Yes (Pt has hidradenitis suppurativa) Other/Comment: hidradenitis suppurativa - MUSCULOSKELETAL/RHEUMATOLOGICAL Hx Fractures: Yes (right hand) - GASTROINTESTINAL Hx Gastrointestinal Disorders: No - GENITOURINARY/GYNECOLOGICAL Hx Genitourinary Disorders: No - PSYCHIATRIC Hx Psychophysiologic Disorder: No Hx Substance Use: No - SURGICAL HISTORY Hx Surgeries: Yes Other/Comment: Scrotal debridement. Axillary debridement. Multiple I&Ds. Right hand surgery. Right ankle Surgery - ANESTHESIA Hx Anesthesia: Yes Hx Anesthesia Reactions: No Hx Malignant Hyperthermia: No Meds Home Medications: Home Medication List Medication Instructions Recorded Confirmed Type Amoxicillin/Clavulanate [Augmentin 1 tab PO BID #20 tab 08/10/18 Rx 875 MG-125 MG] Naproxen 375 mg PO Q8 PRN #21 tablet 08/10/18 Rx Allergies/Adverse Reactions: Allergies Allergy/AdvReac Type Severity Reaction Status Date / Time shellfish derived Allergy ITCHING Verified 04/27/18 21:48 - Medications Medications: Current Medications Sodium Chloride (Sodium Chloride 0.9%) 1,000 mls @ 500 mls/hr IV .Q2H STA Stop: 08/10/18 15:11 Vancomycin HCl 1 gm/ Sodium (Chloride) 250 mls @ 166.667 mls/hr IVPB ONCE ONE Stop: 08/10/18 14:44 Physical Exam - Constitutional Appears: No Acute Distress - Head Exam Head Exam: ATRAUMATIC, NORMOCEPHALIC - Eye Exam Eye Exam: EOMI, Normal appearance Pupil Exam: PERRL - ENT Exam ENT Exam: Mucous Membranes Moist - Respiratory Exam Respiratory Exam: NORMAL BREATHING PATTERN - Cardiovascular Exam Cardiovascular Exam: REGULAR RHYTHM - GI/Abdominal Exam GI & Abdominal Exam: Normal Bowel Sounds, Soft. absent: Distended, Guarding, Rebound, Rigid, Tenderness - Rectal Exam Rectal Exam: absent: Black Stool, Bloody Stool, Hemorrhoids, Fecal Impaction Additional comments: Good tone, fluctuance and induration noted on L perirectal area measuring approx 5 x 2 cm (5 o clock position when prone), small 1 x 1 cm fluctuant area on r perirectal area, no mass palpated - Extremities Exam Extremities exam: Positive for: normal capillary refill, pedal pulses present - Back Exam Back exam: absent: CVA tenderness (L), CVA tenderness (R) - Neurological Exam Neurological exam: Alert, CN II-XII Intact, Normal Gait, Oriented x3 - Psychiatric Exam Psychiatric exam: Normal Affect, Normal Mood - Skin Skin Exam: Dry, Warm Results - Vital Signs Recent Vital Signs: Last Vital Signs Temp 98.7 F 08/10/18 12:31 Pulse 89 08/10/18 12:31 Resp 18 08/10/18 12:31 BP 148/94 H 08/10/18 12:31 Pulse Ox 99 08/10/18 13:18 - Labs Result Diagrams: 08/10/18 13:30 08/10/18 13:30 Assessment & Plan - Assessment and Plan (Free Text) Assessment: 32 M with PMH of hidradenitis supportiva presents with perirectal pain Plan: -IVF bolus -IV abx dose -f/u CT pelvis: no drainable collection, cellulitis cannot rule out phlegmon (see full report) -Patient to be discharged with augmentin -Return to ED if developing fevers -Discussed with Dr. Suresh Gerardo PGY2 - Date & Time Date: 08/10/18 Time: 14:02
[2018-08-10 13:52] LABS: VENOUS BLOOD GAS PCO2 36 mmHg (40-60); VENOUS BLOOD GAS PO2 63 mm/Hg (30-55); VENOUS BLOOD PH 7.43 (7.32-7.43)
[2018-08-10] MEDS ORDERED: Iohexol 300 100 ML IJ ONE (14:04)
[2018-08-10] MEDS ORDERED: Sodium Chloride 0.9% 50 ML IV ONE (14:04)
[2018-08-10 14:09] LABS: ALB/GLOB RATIO 1.2 (1.0-2.1); ALBUMIN 4.2 g/dL (3.5-5.0); ALT/SGPT 34 U/L (21-72); AST/SGOT 21 U/L (17-59); BLOOD UREA NITROGEN 15 mg/dl (9-20); CALCIUM 9.4 mg/dL (8.4-10.2); GFR NON-AFRICAN AMERICAN > 60
--- NOTE | 2018-08-10 14:49 | CT ---
Date of service: 08/10/2018 PROCEDURE: CT Pelvis with contrast HISTORY: evaluate rectal/perineal abscess COMPARISON: Abdomen pelvis CT without contrast 08/06/2018. TECHNIQUE: Contiguous axial images of the pelvis was performed following intravenous contrast administration. Coronal and sagittal reformats generated. Contrast dose: Omnipaque 300, 100 cc Radiation dose: Total exam DLP = 702.83 mGy-cm. This CT exam was performed using one or more of the following dose reduction techniques: Automated exposure control, adjustment of the mA and/or kV according to patient size, and/or use of iterative reconstruction technique. FINDINGS: Evaluation of the left buttocks reveals linear shaped hyperdensity once again suggestive of likely residual scarring related to medial left buttocks abscess. No definite abscess is appreciated in the immediate perianal distribution. Reactive changes are diminished in the interval particularly compared prior and pelvis CT 06/30/2018 and no prominent fluid collection or emphysematous soft tissue changes are identified at this time. The prior abdomen and pelvis CT from 08/06/2018 does not extend to evaluate the full extent of the left buttocks findings. BLADDER: Unremarkable. No mass. REPRODUCTIVE ORGANS: Unremarkable. VISUALIZED BOWEL: Unremarkable. PERITONEUM: Unremarkable, as visualized. No free fluid. No free air. LYMPH NODES: Unremarkable. No enlarged lymph nodes. VASCULATURE: No aortic atherosclerotic calcification or mural plaque present. BONES: No fracture or focal lesion. OTHER FINDINGS: None. IMPRESSION: No definitive abscess is not clearly identified at this time at the medial left buttocks region with residual scarring and diminishing cellulitis type pattern surrounding the prior infectious process at the medial left buttocks. No direct perianal soft tissue pathology grossly appreciable by CT criteria. Underlying phlegmon is not completely excluded though this would be limited finding.
[2018-08-10] MEDS ORDERED: Bupivacaine 0.5% 50 ML IJ ONE (14:51)
[2018-08-10] MEDS ORDERED: Povidone Iodine Topical 10% Sol ONE (14:57)
[2018-08-10 16:18] VITALS: BP 143/82; PULSE 87; RESP 14; TEMP 98.6
== END 2018-08-10 15:50 | disposition home or self-care (01) ==
LOC: H.ER 12:08
DX: L02.215 Cutaneous abscess of perineum (principal); L73.2 Hidradenitis suppurativa
CPT/HCPCS: 72193; 80053; 82803; 85025; 87040; 96361; 96365; 96375; 99284; J1885; J2270; J7030; Q9967